=== PATIENT | female | born 1960 | race Caucasian/White ===

== ENCOUNTER 2016-12-03 20:03 | Emergency (ER) | payer OTHER ==
[~2016-12-03] VITALS: Ht 152.4 cm; Wt 47.6 kg
[~2016-12-03 20:03] MED LIST: HYDR-2672 PO; LEVO112T4 PO; LOPE2TAB27 PO; LOPE2TAB56 PO; LORA-434 PO; LORA1TAB PO; LORA2TAB89 PO; METR500T PO; ONDA4TAB7 PO; QUET25TA PO
[2016-12-03 20:17] VITALS: BP 118/76
[2016-12-03] MEDS ORDERED: LORAZEPAM 1 MG TABLET. PO ONE (20:45)
--- NOTE | 2016-12-03 20:51 | PHYS DOC ---
Past Medical History Past Medical History: Bipolar, Bronchitis, Hypertension, Hypothyroid Additional Past Medical Histor: [place], scoliosis, skin cancer, heart disease Past Surgical History: No Surgical History Additional Past Surgical Histo: TOE REMOVAL D/T CANCER Additional Information: 1 PACK/DAY Alcohol Use: None Drug Use: None Adult General Chief Complaint Chief Complaint: MECHANICAL FALL HPI HPI Patient is a 56 year old female presents emergency room with a complaint of back pain and right hand pain secondary to a fall at home prior to arrival in the emergency department. Patient states that she was coming in with her boyfriend who is being seen. She states that probably and she slipped and fell and landed onto her bottom. She denies loss of consciousness. Patient also has an additional complaint of being out of Ativan for approximately one week. She has a well-established history of being bipolar has a history of multiple anxiety attacks. She currently does not have a primary care doctor as her boyfriend "fired" him from continuing to prescribe Ativan. She also presents with multiple other complaints that are chronic in nature. She does not have a primary care doctor at this time. This is the patient's visit to this emergency department since October 25, 2016. Review of Systems Review of Systems Constitutional: Denies fever or chills [] Eyes: Denies change in visual acuity, redness, or eye pain [] HENT: Denies nasal congestion or sore throat [] Respiratory: Denies cough or shortness of breath [] Cardiovascular: No additional information not addressed in HPI [] GI: Denies abdominal pain, nausea, vomiting, bloody stools or diarrhea [] : Denies dysuria or hematuria [] Musculoskeletal: Reports back and right hand pain. Integument: Denies rash or skin lesions [] Neurologic: Denies headache, focal weakness or sensory changes [] Endocrine: Denies polyuria or polydipsia [] Current Medications Current Medications Current Medications Medications (Trade) Dose Ordered Sig/Gerardo Start Time Stop Time Status Last Admin Dose Admin Lorazepam (Ativan) 1 mg 1X ONCE 12/03/16 20:45 12/03/16 20:46 DC 12/03/16 20:37 1 MG Allergies Allergies Allergies Coded Allergies Type Severity Reaction Last Updated Verified aspirin Allergy Intermediate 10/10/16 Yes Physical Exam Physical Exam Constitutional: Well developed, well nourished, mild distress, non-toxic appearance. Patient displays some pressured speech and appears anxious. She is signing the paperwork by our registration/acute access person without any evidence of difficulty handling the pen. Patient is requesting over and over again to receive a shot of anxiety medicine. HENT: Normocephalic, atraumatic, bilateral external ears normal, oropharynx moist, no oral exudates, nose normal. Eyes: PERRLA, EOMI, conjunctiva normal, no discharge. [] Neck: Normal range of motion, no tenderness, supple, no stridor. Cardiovascular:Heart rate regular rhythm, no murmur [] Lungs & Thorax: Bilateral breath sounds clear to auscultation [] Abdomen: Bowel sounds normal, soft, no tenderness, no masses, no pulsatile masses. [] Skin: Warm, dry, no erythema, no rash. [] Back: Patient does have profound scoliosis and or thoracolumbar spine. Patient essentially has tenderness along her entire axial skeleton without focal areas of pain. There is no palpable defect or step-off along the spinous processes. There is no active muscle spasm. Right hand and wrist is without any evidence of injury/deformity/abnormality. She has tenderness to entire hand without palpable defect, deformity, instability or crepitus. She is able to flex and extend all 5 fingers at each joint. Hand is neurovascularly intact with capillary refill less than 2 seconds. Extremities: No tenderness, no cyanosis, no clubbing, ROM intact, no edema. [] Neurologic: Alert and oriented X 3, normal motor function, normal sensory function, no focal deficits noted. [] Psychologic: Patient was slightly pressured speech with a focus on her anxiety inside of the pain in her back and in her right hand. Current Patient Data Vital Signs Vital Signs Date Time Temp Pulse Resp B/P Pulse Ox O2 Delivery O2 Flow Rate FiO2 12/03/16 20:17 98.3 81 20 97 Room Air 98.3 EKG EKG [] Radiology/Procedures Radiology/Procedures 3 views of patient's lumbar spine show profound thoracolumbar scoliosis without any evidence of acute injury. 3 views of patient's right hand and right wrist were performed with adequate technique. There is no evidence of fracture or dislocation. Course & Med Decision Making Course & Med Decision Making 1 mg Ativan tablet was ordered by mouth. Patient verbalized her dissatisfaction with receiving a by mouth anxiety medicines shot. She was overheard with the nurse telling her that she could only take half of the pill at a time and that she did only take it with warm water and not cold water. Patient has had a somewhat longer, protracted stay and is normal based on her complaints. She was taken over for x-rays of her back and her right hand/wrist. She stated that she needed use the bathroom is brought back to the emergency room for assistance and using the restroom and then was cleaned up with assistance from the nursing staff. Along patient's stay here, she has been verbalizing her desire to be admitted to the hospital due to all her chronic concerns. Dragon Disclaimer Dragon Disclaimer This electronic medical record was generated, in whole or in part, using a voice recognition dictation system. Departure Departure Impression: Primary Impression: Lumbosacral strain Additional Impressions: Multiple contusions Anxiety Disposition: HOME, SELF-CARE Condition: STABLE Referrals: NO PCP (PCP) Patient Instructions: Anxiety and Panic Attacks, [id number], Hand Contusion, [id number], Lumbosacral Strain Additional Instructions: 1. The x-rays of your back, wrist and hand show no broken bones or dislocations. 2. Take the medication as prescribed. 3. Review the discharge instructions provided for self care and reasons to return the emergency department. 4. Use the pamphlet provided for assistance in finding a primary care doctor to address your medical concerns. Call Sunday to schedule follow-up appointment. Scripts Lorazepam (Ativan)0.5 Mg Tablet0.5 Mg PO BID #10 TAB Prov:TRIXIE JANE 12/03/16 Hydrocodone/[place] 5-325 ([place] 5-325 Tablet)1 Each Tablet1 Tab PO PRN Q6HRS PRN PAIN #10 TAB Prov:TRIXIE JANE 12/03/16 Problem Qualifiers TRIXIE JANE Dec 03, 2016 20:51
[2016-12-03] MEDS ORDERED: HYDR-971 PO (21:52)
[2016-12-03] MEDS ORDERED: LORA0.5T96 PO (21:52)
--- NOTE | 2016-12-04 08:16 | RAD ---
Right wrist, 3 views, 12/03/2016: History: Fall, pain No fracture or dislocation is identified. The soft tissues are unremarkable. IMPRESSION: No acute right wrist abnormality is detected. Right hand, 3 views, 12/03/2016: There is mild patchy bony demineralization. No acute fracture or dislocation is identified. There are minimal scattered degenerative changes. IMPRESSION: No acute bony abnormality is detected.
--- NOTE | 2016-12-04 08:19 | RAD ---
Lumbar spine, 12/03/2016: History: Fall, pain The bony structures are demineralized. There is a severe left convexity thoracolumbar scoliosis. Some of the lumbar vertebrae are therefore not clearly delineated in the lateral projection due to obliquity of positioning. No definite fracture is seen. There is disc space narrowing and marginal spurring at multiple levels. Arterial calcifications are present. There is a moderate-sized hiatal hernia. IMPRESSION: 1. Severe thoracolumbar scoliosis which compromises the exam. 2. Moderate degenerative change. 3. No acute bony abnormality is detected.
[2016-12-14] MEDS ORDERED: MORP30TA PO (01:27)
[2016-12-18] MEDS ORDERED: Vancomycin Hcl PO (11:05)
== END 2016-12-03 21:55 | disposition home or self-care (01) ==
LOC: ER 20:03
DX: S39.012A Strain of muscle, fascia and tendon of lower back, initial encounter (principal); F41.9 Anxiety disorder, unspecified; S60.221A Contusion of right hand, initial encounter; I10 Essential (primary) hypertension; E03.9 Hypothyroidism, unspecified; F17.210 Nicotine dependence, cigarettes, uncomplicated; Z88.6 Allergy status to analgesic agent; W19.XXXA Unspecified fall, initial encounter; Y93.89 Activity, other specified; Y92.098 Other place in other non-institutional residence as the place of occurrence of the external cause; Y99.8 Other external cause status
CPT/HCPCS: 72100; 73110; 73130; 99284

== ENCOUNTER 2016-12-08 14:54 | Emergency (ER) | payer OTHER ==
[~2016-12-08] VITALS: Ht 152.4 cm; Wt 47.6 kg
[~2016-12-08 14:54] MED LIST changes: +HYDR-971 PO; +LORA0.5T96 PO
[2016-12-08 15:16] VITALS: BP 147/72
[2016-12-08] MEDS ORDERED: MORPHINE SULFATE 10 MG/ML VIAL. IM ONE (15:30)
--- NOTE | 2016-12-08 15:35 | PHYS DOC ---
Past Medical History Past Medical History: Bipolar, Bronchitis, Hypertension, Hypothyroid Additional Past Medical Histor: [place], scoliosis, skin cancer, heart disease Past Surgical History: No Surgical History Additional Past Surgical Histo: TOE REMOVAL D/T CANCER Alcohol Use: None Drug Use: None Adult General Chief Complaint Chief Complaint: BACK PAIN - NO INJURY HPI HPI Patient is a 56 year old female who presents emergency room with complaint of back pain and being out of morphine that she takes daily for her back pain. Patient is actually been seen at this facility 3 times since the ninth of this month. She does have an established history of chronic back pain secondary to scoliosis. Patient is a marginally functional individual who is reliant on opiates and benzodiazepines daily. Patient did receive a prescription for 60 morphine ER tablets, 15 mg on November 17 this is for total of 60 which indicates a 30 day supply. Patient also received a prescription for Ativan on November 07 onto quantity was 40. She also received a prescription for Ativan on November 17 for a quantity of 30. Patient then received a prescription for 10 Ativan tablets on December 03 and 10 [place] 5/325 tablets on December 03 as well. Review of Systems Review of Systems Constitutional: Denies fever or chills [] Eyes: Denies change in visual acuity, redness, or eye pain [] HENT: Denies nasal congestion or sore throat [] Respiratory: Denies cough or shortness of breath [] Cardiovascular: No additional information not addressed in HPI [] GI: Denies abdominal pain, nausea, vomiting, bloody stools or diarrhea [] : Denies dysuria or hematuria [] Musculoskeletal: Denies back pain or joint pain [] Integument: Denies rash or skin lesions [] Neurologic: Denies headache, focal weakness or sensory changes [] Endocrine: Denies polyuria or polydipsia [] Current Medications Current Medications Current Medications Medications (Trade) Dose Ordered Sig/Gerardo Start Time Stop Time Status Last Admin Dose Admin Morphine Sulfate 10 mg 1X ONCE 12/08/16 15:30 12/08/16 15:31 DC 12/08/16 15:47 10 MG Allergies Allergies Allergies Coded Allergies Type Severity Reaction Last Updated Verified aspirin Allergy Intermediate 10/10/16 Yes Physical Exam Physical Exam Constitutional: Patient sitting in a wheelchair. She is in her usual state of duress. She is complaining loudly that her back hurts and that she is anxious. This is no different than her presentation when I saw her 5 days ago. HENT: Normocephalic, atraumatic, bilateral external ears normal, oropharynx moist, no oral exudates, nose normal. [] Eyes: PERRLA, EOMI, conjunctiva normal, no discharge. [] Neck: Normal range of motion, no tenderness, supple, no stridor. [] Cardiovascular:Heart rate regular rhythm, no murmur [] Lungs & Thorax: Bilateral breath sounds clear to auscultation [] Abdomen: Bowel sounds normal, soft, no tenderness, no masses, no pulsatile masses. [] Skin: Warm, dry, no erythema, no rash. [] Back: Patient has significant deformity related to scoliosis. There is pant tenderness to her back borderlining on allodynia. There is no focal area of tenderness. There are no overlying skin lesions concerning for goals. There is no CVA tenderness.. Extremities: No tenderness, no cyanosis, no clubbing, ROM intact, no edema. [] Neurologic: Alert and oriented X 3, normal motor function, normal sensory function, no focal deficits noted. [] Psychologic: Affect normal, judgement normal, mood normal. [] Current Patient Data Vital Signs Vital Signs Date Time Temp Pulse Resp B/P Pulse Ox O2 Delivery O2 Flow Rate FiO2 12/08/16 15:47 16 95 Room Air 12/08/16 15:16 98.7 79 98.7 EKG EKG [] Radiology/Procedures Radiology/Procedures [] Course & Med Decision Making Course & Med Decision Making Patient arrives to the emergency department by [facility] due to back pain secondary to scoliosis. She has had numerous narcotic prescriptions including morphine and hydrocodone. She is also requesting Ativan. Patient has had a total of 80 Ativan tablets since November 07. This was confirmed with [facility] Patient had a prescription for morphine sulfate tablets, 15 mg to be taken twice a day filled on November 17, 2016. This is a 30 day supply. She has had 10 tablets filled on December 03. Dragon Disclaimer Dragon Disclaimer This electronic medical record was generated, in whole or in part, using a voice recognition dictation system. Departure Departure Impression: Primary Impression: Anxiety Additional Impressions: Chronic back pain Drug-seeking behavior Disposition: 01 HOME, SELF-CARE Condition: STABLE Referrals: NO PCP (PCP) Patient Instructions: Anxiety and Panic Attacks, [id number], Chronic Back Pain, Substance Abuse-Brief Additional Instructions: 1. You have a controlled substance problem. You have received prescriptions for 80 Ativan tablets, 60 morphine tablets and 10 hydrocodone tablets within the past 21 days. 2. You need to see a specialist. This was discussed with you and information was provided to you on your visit to this emergency department 5 days ago. 3. You need to call [facility] for information to see a certified medicine aide, primary care doctor and pain management physician. The number is [phone]. Problem Qualifiers Additional Impressions: Chronic back pain Back pain location: back pain in unspecified location Back pain laterality: unspecified Qualified Code: M54.9 - Dorsalgia, unspecified TRIXIE JANE Dec 08, 2016 15:35
== END 2016-12-08 15:43 | disposition home or self-care (01) ==
LOC: ER 14:54
DX: G89.29 Other chronic pain (principal); M54.89 Other dorsalgia; I10 Essential (primary) hypertension; E03.9 Hypothyroidism, unspecified; Z72.89 Other problems related to lifestyle; F31.9 Bipolar disorder, unspecified; Z88.8 Allergy status to other drugs, medicaments and biological substances
CPT/HCPCS: 96372; 99283; J2270

== ENCOUNTER 2016-12-28 17:55 | Emergency (ER) | payer OTHER ==
[~2016-12-28 17:55] MED LIST changes: +MORP30TA PO; +Vancomycin Hcl PO
[2016-12-28] MEDS ORDERED: HYDROMORPHONE 2 MG/ML VIAL. IV PRN (21:15)
[2016-12-28] MEDS ORDERED: ONDANSETRON PF 4 MG/2 ML VIAL. IV PRN (21:15)
[2016-12-28] MEDS ORDERED: IV NORMAL SALINE 500ML BAG 500 ML IV ONE (21:15)
[2016-12-28 21:30] VITALS: BP 125/72
[2016-12-28] MEDS ORDERED: HYDR25TA PO (21:31)
[2016-12-28] MEDS ORDERED: ONDA4TAB10 SL (21:31)
--- NOTE | 2016-12-28 21:31 | PHYS DOC ---
Past Medical History Past Medical History: Bipolar, Bronchitis, Hypertension, Hypothyroid Additional Past Medical Histor: [place], scoliosis, skin cancer, heart disease Past Surgical History: No Surgical History Additional Past Surgical Histo: TOE REMOVAL D/T CANCER Alcohol Use: None Drug Use: None Adult General Chief Complaint Chief Complaint: DIARRHEA HPI HPI 56-year-old female presenting to the emergency department today complaining of diarrhea. She complains of watery diarrhea is been intermittent for at least a month. She is currently undergoing therapy with Flagyl through a primary care physician. She appears mildly anxious during her examination. She denies blood in her stool. She clearly is stating that she does not want any blood work or imaging testing at this time because we have had it last time she was in the hospital here. Her last CT showed evidence of colitis. Onset 1 month. Intermittent. No alleviating factors. No exacerbating factors. She denies fevers or chills. Review of systems is negative for chest pain shortness of breath fevers chills or vomiting. All other review of systems is negative unless otherwise noted in history of present illness. Review of Systems Review of Systems SEE ABOVE. Current Medications Current Medications Current Medications Medications (Trade) Dose Ordered Sig/Gerardo Start Time Stop Time Status Last Admin Dose Admin Hydromorphone HCl (Dilaudid) 0.5 mg PRN Q1HR PRN 12/28/16 21:15 Ondansetron HCl 4 mg 4 mg PRN Q30MIN PRN 12/28/16 21:15 Sodium Chloride (Iv Sodium Chloride 0.9% 500ml Bag) 500 ml @ 500 mls/hr 1X ONCE 12/28/16 21:15 12/28/16 22:14 Allergies Allergies Allergies Coded Allergies Type Severity Reaction Last Updated Verified aspirin Allergy Intermediate 10/10/16 Yes Physical Exam Physical Exam Constitutional: Well developed, well nourished, no acute distress, non-toxic appearance. HENT: Normocephalic, atraumatic, bilateral external ears normal, oropharynx moist, no oral exudates, nose normal. [] Eyes: PERRLA, EOMI, conjunctiva normal, no discharge. Neck: Normal range of motion, no tenderness, supple, no stridor. [] Cardiovascular:Heart rate regular rhythm, no murmur Lungs & Thorax: Bilateral breath sounds clear to auscultation [] Abdomen: Soft nontender abdomen without rebound tenderness or guarding present. Negative McBurneys point. Negative Mcdaniels sign. No ecchymosis present. Skin: Warm, dry, no erythema, no rash. Back: No tenderness, no CVA tenderness. [] Extremities: No tenderness, no cyanosis, no clubbing, ROM intact, no edema. Neurologic: Alert and oriented X 3, normal motor function, normal sensory function, no focal deficits noted. Psychologic: Affect normal, judgement normal, mood normal. [] Current Patient Data Vital Signs Vital Signs Date Time Temp Pulse Resp B/P Pulse Ox O2 Delivery O2 Flow Rate FiO2 12/28/16 21:30 84 18 125/72 98 Room Air 12/28/16 21:00 98.7 98.7 Lab Values Laboratory Tests Test 12/28/16 21:24 Urine Collection Type Unknown Urine Color Yellow Urine Clarity Clear Urine pH 6.5 Urine Specific [place] 1.010 Urine Protein Negativemg/dL (NEG-TRACE) Urine Glucose (UA) Negativemg/dL (NEG) Urine Ketones (Stick) Negativemg/dL (NEG) Urine Blood Negative (NEG) Urine Nitrite Negative (NEG) Urine Bilirubin Negative (NEG) Urine Urobilinogen Dipstick 0.2mg/dL (0.2 mg/dL) Urine Leukocyte Esterase Negative (NEG) Urine RBC 0/HPF (0-2) Urine WBC 0/HPF (0-4) Urine Squamous Epithelial Cells Mod/LPF Urine Bacteria 0/HPF (0-FEW) Urine Mucus Slight/LPF EKG EKG [] Radiology/Procedures Radiology/Procedures [] Course & Med Decision Making Course & Med Decision Making Pertinent Labs and Imaging studies reviewed. (See chart for details) [] 56-year-old female presenting to the emergency department today with mild intermittent abdominal pain with watery diarrhea. She had recently been diagnosed with colitis and currently is on Flagyl therapy. On examination of the patient's vital signs showed she was afebrile with a normal heart rate. Saturating well with normal blood pressure. Physical exam showed a nontender nonsurgical abdomen. I expressed my desire to obtain blood work and probable imaging of the abdomen however the patient respectfully declined. She was concerned because she already had blood work approximately one week ago. I explained that this can foreign exchange services manager time and help further clarify her medical condition and situation. She clearly demonstrated insight into her situation and was able to make medical decisions. She demonstrated medical capacity. Her vital signs were unremarkable. Abdomen was soft and nontender. I offered her nausea medication and something for anxiety which she had request for me and she was subsequently discharged home and referred to our primary care physicians over the next day or 2 for close follow-up. Dragon Disclaimer Dragon Disclaimer This electronic medical record was generated, in whole or in part, using a voice recognition dictation system. Departure Departure Impression: Primary Impression: Diarrhea Disposition: HOME, SELF-CARE Referrals: NO PCP (PCP) DICK PRASAD MD Patient Instructions: Diarrhea, [id number] Additional Instructions: Thank you for allowing us to participate in your care today. Followup with your primary care physician in 3 days if your symptoms do not improve. If you do not have a primary care provider you can ask for a list of our primary care providers. Return to the emergency department you have any new or concerning findings. This should be evaluated by the primary care physician and any necessary consulting services for continued management within a few days after discharge. Return to emergency room if you have any new or concerning symptoms including but not limited to fever, chills, nausea, vomiting, intractable pain, any new rashes, chest pain, shortness of air, uncontrolled bleeding, difficulty breathing, and/or vision loss. You may have been prescribed medication that can change in your level of thinking and ability to operate machinery. These medications include hydrocodone and Ativan. Also, Benadryl has been known to do this as well. Be sure to check with your pharmacist and ask if the medications you've prescribed can affect your level of consciousness. I recommend not operating heavy machinery or driving while on medication such as these. Scripts Ondansetron (Zofran Odt)4 Mg Tab.rapdis1 Tab SL PRN Q8HRS PRN NAUSEA #3 TAB Prov:JOCELYN SCOTT MD 12/28/16 Hydroxyzine Hcl 25 Mg Tablet1 Tab PO PRN BID PRN ANXIETY / AGITATION #4 TAB Prov:JOCELYN SCOTT MD 12/28/16 JOCELYN SCOTT MD Dec 28, 2016 21:32
[2016-12-28 21:41] LABS: BILIRUBIN,URINE NEGATIVE (NEG); GLUCOSE,URINE NEGATIVE (NEG); NITRITE,URINE NEGATIVE (NEG); PH,URINE 6.5; PROTEIN,URINE NEGATIVE (NEG-TRACE); UROBILINOGEN,URINE 0.2 mg/dL (0.2 mg/dL)
[2016-12-28 21:52] LABS: BACTERIA,URINE 0 /HPF (0-FEW); RBC,URINE 0 /HPF (0-2); SQUAMOUS EPITHELIAL CELL,UR MOD /LPF; WBC,URINE 0 /HPF (0-4)
== END 2016-12-28 21:40 | disposition home or self-care (01) ==
LOC: ER 17:55
DX: R19.7 Diarrhea, unspecified (principal); E03.9 Hypothyroidism, unspecified; I11.9 Hypertensive heart disease without heart failure; F31.9 Bipolar disorder, unspecified; M41.9 Scoliosis, unspecified; Z88.8 Allergy status to other drugs, medicaments and biological substances
CPT/HCPCS: 81001; 99283

== ENCOUNTER 2016-12-30 17:44 | Emergency (ER) | payer OTHER ==
[~2016-12-30] VITALS: Ht 162.6 cm; Wt 45.4 kg
[~2016-12-30 17:44] MED LIST changes: +HYDR25TA PO; +ONDA4TAB10 SL
[2016-12-30] MEDS ORDERED: ONDANSETRON PF 4 MG/2 ML VIAL. IV ONE (18:45)
[2016-12-30] MEDS ORDERED: LORAZEPAM 2 MG/ML VIAL IV ONE (18:45)
--- NOTE | 2016-12-30 19:22 | PHYS DOC ---
Past Medical History Past Medical History: Bipolar, Bronchitis, Hypertension, Hypothyroid Additional Past Medical Histor: [place], scoliosis, skin cancer, heart disease Past Surgical History: No Surgical History Additional Past Surgical Histo: TOE REMOVAL D/T CANCER Alcohol Use: None Drug Use: None Adult General Chief Complaint Chief Complaint: DIARRHEA HPI HPI 56-year-old female who is well known to our department presents once again stating she's having diarrhea and concerned about a infection in her colon. She has not had any fever chills or sweats. She's had abdominal cramping. I saw her not long ago for the same complaint laboratory studies at that time were completely normal. [] Review of Systems Review of Systems Constitutional: Denies fever or chills [] Eyes: Denies change in visual acuity, redness, or eye pain [] HENT: Denies nasal congestion or sore throat [] Respiratory: Denies cough or shortness of breath [] Cardiovascular: No additional information not addressed in HPI [] GI: Per history of present illness [] : Denies dysuria or hematuria [] Musculoskeletal: Denies back pain or joint pain [] Integument: Denies rash or skin lesions [] Neurologic: Denies headache, focal weakness or sensory changes [] Endocrine: Denies polyuria or polydipsia [] Current Medications Current Medications Current Medications Medications (Trade) Dose Ordered Sig/Gerardo Start Time Stop Time Status Last Admin Dose Admin Lorazepam (Ativan) 1 mg 1X ONCE 12/30/16 18:45 12/30/16 18:46 DC Ondansetron HCl (Zofran) 4 mg 1X ONCE 12/30/16 18:45 12/30/16 18:46 DC Allergies Allergies Allergies Coded Allergies Type Severity Reaction Last Updated Verified aspirin Allergy Intermediate 10/10/16 Yes Physical Exam Physical Exam Constitutional: Well developed, well nourished, no acute distress, non-toxic appearance. [] HENT: Normocephalic, atraumatic, bilateral external ears normal, oropharynx moist, no oral exudates, nose normal. [] Eyes: PERRLA, EOMI, conjunctiva normal, no discharge. [] Neck: Normal range of motion, no tenderness, supple, no stridor. [] Cardiovascular:Heart rate regular rhythm, no murmur [] Lungs & Thorax: Bilateral breath sounds clear to auscultation [] Abdomen: Bowel sounds normal, soft, no tenderness, no masses, no pulsatile masses. [] Skin: Warm, dry, no erythema, no rash. [] Back: No tenderness, no CVA tenderness. [] Extremities: No tenderness, no cyanosis, no clubbing, ROM intact, no edema. [] Neurologic: Alert and oriented X 3, normal motor function, normal sensory function, no focal deficits noted. [] Psychologic: Anxious [] EKG EKG [] Radiology/Procedures Radiology/Procedures [] Course & Med Decision Making Course & Med Decision Making Pertinent Labs and Imaging studies reviewed. (See chart for details) [ED course: Evaluation reveals a 56-year-old female who has frequent visits to our emergency department. I discussed with the patient that she needs to follow with her family doctor. I let her know that I did not believe anything today was an emergency. I didn't feel like she needed any lab tests to tell me this and I will discharge her home in stable condition.] Dragon Disclaimer Dragon Disclaimer This electronic medical record was generated, in whole or in part, using a voice recognition dictation system. Departure Departure Impression: Primary Impression: Anxiety Disposition: HOME, SELF-CARE Condition: STABLE Referrals: NO PCP (PCP) Patient Instructions: Anxiety and Panic Attacks Additional Instructions: He needs follow with the family doctor next week for recheck. SOL PEDRO DO Dec 30, 2016 19:22
[2016-12-30 19:38] VITALS: BP 174/86
== END 2016-12-30 20:00 | disposition home or self-care (01) ==
LOC: ER 17:44
DX: F41.9 Anxiety disorder, unspecified (principal); R19.7 Diarrhea, unspecified; F31.9 Bipolar disorder, unspecified; E03.9 Hypothyroidism, unspecified; I11.9 Hypertensive heart disease without heart failure; Z88.6 Allergy status to analgesic agent
CPT/HCPCS: 99281

== ENCOUNTER 2017-01-07 11:53 | Emergency (ER) | payer OTHER ==
[~2017-01-07] VITALS: Ht 162.6 cm; Wt 40.8 kg
[2017-01-07 12:37] VITALS: BP 132/68
--- NOTE | 2017-01-07 13:03 | RAD ---
Indication cough and congestion. PA and lateral views of the chest were obtained and are compared to a study December 13, 2016. Note is made of a two-view examination 11/15/2016 The heart and pulmonary vessels are within normal limits. There is no focal infiltrate. Hiatus hernia is noted. Marked scoliosis is additionally noted. IMPRESSION: Chronic changes. No acute finding seen
[2017-01-07 13:36] LABS: OBC FLU VALID
[2017-01-07] MEDS ORDERED: LORAZEPAM 1 MG TABLET. PO ONE (14:30)
[2017-01-07] MEDS ORDERED: LEVO500T38 PO (15:39)
--- NOTE | 2017-01-07 15:40 | PHYS DOC ---
Past Medical History Past Medical History: Asthma, Bronchitis Additional Past Medical Histor: habematolel, scoliosis, skin cancer, heart disease Past Surgical History: No Surgical History Additional Past Surgical Histo: TOE REMOVAL D/T CANCER Alcohol Use: None Drug Use: None Adult General Chief Complaint Chief Complaint: COUGH HPI HPI Patient is a 56 year old female presents emergency department stating that she' s had a cough and congestion for the last week. Patient also states that she has had a fever on and off. She does have a history of smoking. She denies nausea or vomiting. She states that she is also having bilateral knee pain in which she said the dashboard with her knees. She is able to walk without difficulty. She denies any numbness or tingling down to her lower extremities. Review of Systems Review of Systems Constitutional: Denies fever or chills [] Eyes: Denies change in visual acuity, redness, or eye pain [] HENT: Denies nasal congestion or sore throat [] Respiratory: cough denies shortness of breath [] Cardiovascular: No additional information not addressed in HPI [] Musculoskeletal: Denies back pain. Bilateral knee pain and discomfort Integument: Denies rash or skin lesions [] Neurologic: Denies headache, focal weakness or sensory changes [] Current Medications Current Medications Current Medications Medications (Trade) Dose Ordered Sig/Gerardo Start Time Stop Time Status Last Admin Dose Admin Lorazepam (Ativan) 1 mg 1X ONCE 01/07/17 14:30 01/07/17 14:31 DC 01/07/17 14:28 1 MG Allergies Allergies Allergies Coded Allergies Type Severity Reaction Last Updated Verified aspirin Allergy Intermediate 10/10/16 Yes Physical Exam Physical Exam Constitutional: Well developed, well nourished, no acute distress, non-toxic appearance. [] HENT: Normocephalic, atraumatic, bilateral external ears normal, oropharynx moist, no oral exudates, nose normal. [] Eyes: PERRLA, EOMI, conjunctiva normal, no discharge. [] Neck: Normal range of motion, no tenderness, supple, no stridor. [] Cardiovascular:Heart rate regular rhythm, no murmur [] Lungs & Thorax: Bilateral breath sounds clear to auscultation [] Skin: Warm, dry, no erythema, no rash. [] Back: No tenderness Extremities: Bilateral knee tenderness, no cyanosis, no clubbing, ROM intact, no edema. Peripheral pulses 2 + cap refill brisk < 2 seconds. Good sensation noted. Good steady gait noted Neurologic: Alert and oriented X 3, normal motor function, normal sensory function, no focal deficits noted. [] Psychologic: Affect normal, judgement normal, mood normal. [] Current Patient Data Vital Signs Vital Signs Date Time Temp Pulse Resp B/P Pulse Ox O2 Delivery O2 Flow Rate FiO2 01/07/17 12:37 97.8 89 20 96 Room Air 97.8 Lab Values Laboratory Tests Test 01/07/17 12:45 Influenza Type A Antigen Negative (NEGATIVE) Influenza Type B Antigen Negative (NEGATIVE) EKG EKG [] Radiology/Procedures Radiology/Procedures [] Course & Med Decision Making Course & Med Decision Making Pertinent Labs and Imaging studies reviewed. (See chart for details) She was were negative for any abnormalities. Patient will be discharged home with Levaquin she has been sick for the last 2 weeks that has a history of smoking. Also recommended Tylenol or ibuprofen for pain and discomfort. Follow- up primary care physician next week. Since symptoms to return back to emergency department was provided. Patient agrees with discharge instructions treatment regimens and follow-up recommendations. [] Dragon Disclaimer Dragon Disclaimer This electronic medical record was generated, in whole or in part, using a voice recognition dictation system. Departure Departure Impression: Primary Impression: Knee pain, acute Additional Impression: Upper respiratory infection Disposition: 01 HOME, SELF-CARE Condition: STABLE Referrals: NO PCP (PCP) Patient Instructions: Knee Pain, [id number], Upper Respiratory Infection, Adult, [id number] Additional Instructions: Home to rest Medications as prescribed. Drink plenty of fluids. Tylenol or ibuprofen for pain and discomfort. Follow-up through primary care physician in the next 5-7 days. Return back to emergency department as needed for signs and symptoms of become worse. Scripts Levofloxacin (Levaquin)500 Mg Tablet1 Tab PO DAILY #7 TAB Prov:DAMIR PATEL NP 01/07/17 Problem Qualifiers DAMIR PATEL NP Jan 07, 2017 15:40
--- NOTE | 2017-01-07 15:44 | RAD ---
Indication bilateral knee pain for approximately a week. AP oblique and lateral views of both knees were obtained as well as individual sunrise views of both knees. Views of the left knee show no acute finding. There is a well-corticated bony fragment just above the medial femoral condyle having a chronic appearance. Significant degenerative changes involving the knee are not apparent on plain films and there is no significant joint effusion. Views of the right knee also appear unremarkable. No acute finding is seen and there are no significant degenerative changes apparent on plain films. IMPRESSION: No acute or significant finding involving either knee.
== END 2017-01-07 15:46 | disposition home or self-care (01) ==
LOC: ER 11:53
DX: J06.9 Acute upper respiratory infection, unspecified (principal); M25.561 Pain in right knee; M25.562 Pain in left knee; J45.909 Unspecified asthma, uncomplicated; F17.200 Nicotine dependence, unspecified, uncomplicated; Z88.6 Allergy status to analgesic agent
CPT/HCPCS: 71020; 73564; 87804; 99285-25

== ENCOUNTER 2017-01-27 15:40 | Emergency (ER) | payer OTHER ==
[~2017-01-27] VITALS: Ht 149.9 cm; Wt 40.8 kg
[~2017-01-27 15:40] MED LIST changes: +LEVO500T38 PO
[2017-01-27 15:58] VITALS: BP 130/66
--- NOTE | 2017-01-27 17:28 | PHYS DOC ---
Past Medical History Past Medical History: Asthma, Bronchitis Additional Past Medical Histor: [place], scoliosis, skin cancer, heart disease Past Surgical History: No Surgical History Additional Past Surgical Histo: TOE REMOVAL D/T CANCER Alcohol Use: None Drug Use: None Adult General Chief Complaint Chief Complaint: multiple HPI HPI Patient is a 56 year old female well known to the emergency department brought to the ED by her boyfriend. Patient states "I have Chlamydia", the patient and her boyfriend both tell me that she has "diagnosed with chlamydia" here at the ED and they went to [facility] for a second opinion with a also told her she had chlamydia. However, discussing with the patient and her boyfriend, her complaint was diarrhea and the test that was done was on her stool and as I reviewed her record she has never had a Chlamydia test done here but in fact has been positive for C. difficile on 3 occasions. I'm not sure what made her concerned about that today. She states that she did have 3 rounds of antibiotics. She tells me that she has had chronic diarrhea for a long time. She often has accidents and soils her clothes. Her diarrhea is better today than it has been in the past but she does have some abdominal pain. She also complains of chronic back pain and and anxiety attack. PCP [facility] Review of Systems Review of Systems Constitutional: Denies fever or chills [] Eyes: Denies change in visual acuity, redness, or eye pain [] HENT: Denies nasal congestion or sore throat [] Respiratory: Denies cough or shortness of breath [] Cardiovascular: Denies chest pain GI: As in history of present illness : Denies dysuria or hematuria [] Musculoskeletal: Chronic back pain, chronic scoliosis Integument: Denies rash or skin lesions [] Neurologic: Denies headache, focal weakness or sensory changes [] Allergies Allergies Allergies Coded Allergies Type Severity Reaction Last Updated Verified aspirin Allergy Intermediate 10/10/16 Yes Physical Exam Physical Exam Constitutional: Frail, cachectic, with severe scoliosis, no acute change from her baseline well known to me HENT: Normocephalic, atraumatic, bilateral external ears normal, nose normal. [] Eyes: conjunctiva normal, no discharge. [] Neck: Normal range of motion, no stridor. [] Cardiovascular:Heart rate regular rhythm, no murmur [] Lungs & Thorax: Bilateral breath sounds clear to auscultation [] Abdomen: Bowel sounds normal, soft, no tenderness, no masses, no pulsatile masses. [] Skin: Warm, dry, no erythema, no rash. [] Back: Severe scoliosis and kyphosis, chronic Extremities: No tenderness, no cyanosis, no clubbing, ROM intact, no edema. [] Neurologic: Alert and oriented X 3, normal motor function, normal sensory function, no focal deficits noted. [] Current Patient Data Vital Signs Vital Signs Date Time Temp Pulse Resp B/P Pulse Ox O2 Delivery O2 Flow Rate FiO2 01/27/17 15:58 98.6 88 20 130/66 96 Room Air 98.6 EKG EKG [] Radiology/Procedures Radiology/Procedures [] Course & Med Decision Making Course & Med Decision Making Pertinent Labs and Imaging studies reviewed. (See chart for details) 56-year-old presents from home with chronic complaints. When I entered the room she was watching TV talking with her boyfriend. Both of them were very argumentative stating that she has been diagnosed with "chlamydia" and they've looked into that and now they note that it is a sexually transmitted disease. After extensive chart review an extensive conversation with the patient and her boyfriend, I discussed with them that it appears to me that her diagnosis was Clostridium difficile and I explained the difference and talked about this quite a bit. It appears that she's been treated for this. She had a positive C. difficile here at [facility] in September, October, and again in November. Each time she was treated with antibiotics. She hasn't gotten any worse and, little bit skeptical that she actually had an acute C. difficile infection 3 months in a row. I don't know whether she might have some other condition that causes her to have a positive PCR toxin test. I talked to the patient about the fact that she needs to follow up with her outpatient primary care physician for follow-up of her chronic conditions. Patient, as is her usual presentation, was very argumentative and demanding that she needed something for pain and something for anxiety. I did explain to her that both of these chronic conditions will not be addressed in the emergency department and she needs to follow-up for these chronic conditions with her primary care physician. The patient continued to request clean clothes and something to eat, and was discharged to home with her boyfriend. [] Dragon Disclaimer Dragon Disclaimer This electronic medical record was generated, in whole or in part, using a voice recognition dictation system. Departure Departure Impression: Primary Impression: Chronic back pain Additional Impression: Chronic diarrhea Disposition: HOME, SELF-CARE Condition: STABLE Referrals: NO PCP (PCP) Additional Instructions: As we discussed, the test result positive here at [facility] is for CLOSTRIDIUM DIFFICILE, which is an infection of the colon that may cause diarrhea. However, you have been on antibiotics and are not better, so I am not sure what is the best way to proceed and if you need any more antibiotics or any more tests. This is something that can be discussed with your doctor as an outpatient. I suggest that you follow up with your primary care doctor and you may need a referral to a GI specialist. As we discussed, chronic back pain means that you have it every day. That is not something that we manage or treat in the emergency department. I recommend that you follow up with your primary care doctor and with pain management as has been suggested. Problem Qualifiers MARVIN CRUMP MD Jan 27, 2017 17:28
== END 2017-01-27 17:45 | disposition home or self-care (01) ==
LOC: ER 15:40
DX: G89.29 Other chronic pain (principal); M54.9 Dorsalgia, unspecified; R19.7 Diarrhea, unspecified; J45.909 Unspecified asthma, uncomplicated; M41.9 Scoliosis, unspecified; M40.209 Unspecified kyphosis, site unspecified; Z88.6 Allergy status to analgesic agent
CPT/HCPCS: 99284

== ENCOUNTER 2017-01-28 23:31 | Emergency (ER) | payer OTHER ==
[~2017-01-28] VITALS: Ht 147.3 cm; Wt 40.8 kg
[2017-01-28 23:50] VITALS: BP 155/68
[2017-01-29] MEDS ORDERED: IBUPROFEN 600 MG TABLET. PO ONE (00:45)
--- NOTE | 2017-01-29 01:47 | PHYS DOC ---
Past Medical History Past Medical History: Asthma, Bronchitis Additional Past Medical Histor: [place], scoliosis, skin cancer, heart disease Past Surgical History: No Surgical History Additional Past Surgical Histo: TOE REMOVAL D/T CANCER Alcohol Use: None Drug Use: None Adult General Chief Complaint Chief Complaint: MULTIPLE COMPLAINTS HPI HPI Patient is a 56 year old female well known to the Emergency Department who presents with back pain. Patient has vague story of falling down stairs today, as well as having a panic attack. Her story that she tells me differs from what she told the nurse and also what she told the triage desk. She complains of general back pain, but is unable to tell me how this differs from her usual chronic back pain. She said she takes morphine for pain at home, but then say she does not have any pain medication at home. No numbness or weakness. No other acute complaints. Review of Systems Review of Systems Constitutional: Denies fever or chills Eyes: Denies change in visual acuity or eye pain HENT: Denies nasal congestion or sore throat Respiratory: Denies cough or shortness of breath Cardiovascular: Denies chest pain GI: Denies abdominal pain, nausea, vomiting, bloody stools or diarrhea : Denies dysuria or hematuria Musculoskeletal: Acute on chronic back pain Integument: Denies rash or skin lesions Neurologic: Denies headache, focal weakness or sensory changes Current Medications Current Medications Current Medications Medications (Trade) Dose Ordered Sig/[facility] Start Time Stop Time Status Last Admin Dose Admin Ibuprofen (Motrin) 600 mg 1X ONCE 01/29/17 00:45 01/29/17 00:46 DC 01/29/17 00:45 600 MG Allergies Allergies Allergies Coded Allergies Type Severity Reaction Last Updated Verified aspirin Allergy Intermediate 10/10/16 Yes Physical Exam Physical Exam Constitutional: Well developed, well nourished, no acute distress, non-toxic appearance; able to ambulate and move around without difficulty HENT: Normocephalic, atraumatic, bilateral external ears normal Eyes: EOMI, conjunctiva normal, no discharge Neck: Normal range of motion, no stridor. No midline TTP, no stepoff Cardiovascular: Heart rate normal, regular rhythm, no murmur Lungs & Thorax: Bilateral breath sounds clear to auscultation Abdomen: Bowel sounds normal, soft, non-distended, no TTP Skin: Warm, dry, no erythema, no rash Back: Marked scoliosis; general tenderness throughout entire back; no skin lesion, bruising, other acute abnormality noted Extremities: No obvious deformity, no edema Neurologic: Alert and oriented X 3, no gross deficits noted; strength and sensation to light touch in BLE intact Psychologic: Anxious Current Patient Data Vital Signs Vital Signs Date Time Temp Pulse Resp B/P Pulse Ox O2 Delivery O2 Flow Rate FiO2 01/28/17 23:50 97.5 87 24 155/68 94 Room Air 97.5 EKG EKG [] Radiology/Procedures Radiology/Procedures X-ray lumbar spine (my read): Limited exam. Scoliosis, kyphosis. No significant change from prior. X-ray thoracic spine (my read): Limited exam. Scoliosis, kyphosis. No acute abnormality. Course & Med Decision Making Course & Med Decision Making Pertinent Labs and Imaging studies reviewed. (See chart for details) Patient is 56-year-old female well known to the Emergency Department if you presents with acute on chronic back pain as well as complaint of panic attack. Will obtain x-rays of thoracic and lumbar spine, although no evidence of significant injury noted on exam. Ibuprofen ordered for pain control. I discussed with patient that due to her frequent visits to the emergency department combined with her refusal to establish with a primary care physician for management of her chronic pain and other medical conditions despite repeated instruction to do so over the course of many months, I would not give her narcotic pain medication or benzodiazepines while in the Emergency Department or as a prescription to go home with. Imaging results as above. I discussed results with patient and her , who then stated that the whole reason she is here was to be tested for chlamydia. I therefore ordered a urine chlamydia PCR screen and instructed patient that if was positive, she would be contacted and treated appropriately. However patient refused to stay and left before giving urine sample for this test. I again discussed with patient and her the importance of establishing with PCP, and have provided sheets with list of local primary care providers with which she could establish. Patient given instructions for follow up and return precautions. Dragon Disclaimer Dragon Disclaimer This electronic medical record was generated, in whole or in part, using a voice recognition dictation system. Departure Departure Impression: Primary Impression: Chronic back pain Disposition: HOME, SELF-CARE Condition: STABLE Referrals: NO PCP (PCP) Patient Instructions: Chronic Back Pain Additional Instructions: Thank you for allowing us to provide care today in the Emergency Department. Schedule a follow up appointment with a primary care doctor using the provided list. 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 Return promptly to the Emergency Department if you develop any new or concerning symptoms. JULES BANEGAS MD Jan 29, 2017 01:47
--- NOTE | 2017-01-29 07:14 | RAD ---
Indication: Pain after fall tonight. Technique: Thoracic spine series contains 5 images. Exam was performed with the patient seated in wheelchair, patient cannot lie or stand. Positioning was difficult. Findings: There is S-shaped scoliosis of the thoracic and lumbar spine. There is no subluxation. Vertebral body height appears maintained although scoliosis and portable technique limits evaluation. Degenerative changes are noted. Impression: No definite fracture. If symptoms persist, consider MRI.
--- NOTE | 2017-01-29 07:16 | RAD ---
Indication: Pain after fall. Technique: Lumbar spine series contains 4 images. Exam was performed portably with the patient sitting in a wheelchair. Patient cannot stand up or lie down. Comparison is from December 03, 2016. Findings: Levoscoliosis again is noted. Bone demineralization is present. No definite fracture or dislocation is identified. Alignment and vertebral body height appear maintained compared to prior study. Hiatal hernia is noted. Impression: No definite fracture. Stable limited examination.
== END 2017-01-29 02:07 | disposition home or self-care (01) ==
LOC: ER 23:31
DX: M54.89 Other dorsalgia (principal); G89.29 Other chronic pain; J45.909 Unspecified asthma, uncomplicated; Z88.6 Allergy status to analgesic agent; W10.9XXA Fall (on) (from) unspecified stairs and steps, initial encounter; Y93.89 Activity, other specified; Y99.8 Other external cause status; Y92.89 Other specified places as the place of occurrence of the external cause
CPT/HCPCS: 72072; 72100; 99284

== ENCOUNTER 2017-06-18 22:45 | Emergency (ER) | payer OTHER ==
[~2017-06-18] VITALS: Ht 157.5 cm; Wt 40.8 kg
[~2017-06-18 22:45] MED LIST changes: -HYDR-2672 PO; +HYDR-2766 PO; -LEVO500T38 PO; +LEVO500T59 PO
[2017-06-18 23:37] LABS: POTASSIUM ISTAT 3.6 mmol/L (3.5-5.0)
[2017-06-18 23:56] VITALS: BP 120/58
--- NOTE | 2017-06-18 23:56 | PHYS DOC ---
Past Medical History Past Medical History: Asthma, Bronchitis Additional Past Medical Histor: [place], scoliosis, skin cancer, heart disease, "ENLARGED COLON" Past Surgical History: No Surgical History Additional Past Surgical Histo: TOE REMOVAL D/T CANCER Alcohol Use: None Drug Use: None Adult General Chief Complaint Chief Complaint: anxiety HPI HPI Patient is a 57 year old female who presents ambulatory to the emergency department with the complaint of anxiety. The patient came to the emergency department with her "boyfriend" who also checked in to be seen for shortness of air and chest pain. Patient states that she is "very shaky" and nervous, she is out of her anxiety medication and she has been having a "anxiety attack" for about a week. Patient sees a doctor at [facility] and she missed her last appointment because she was hospitalized at at the time. She does have a new appointment coming up but doesn't know when it is. Patient states she was hospitalized at for bleeding from the colon and she is still having intermittent colon Bleeding, states she plans to have surgery where they will remove part or all of her colon but she does not have that scheduled yet. Patient states the last time she saw blood in the toilet was about a week ago. Today her chief complaint is anxiety. Review of Systems Review of Systems Constitutional: Denies fever or chills [] Respiratory: Denies cough or shortness of breath [] GI: As in history of present illness Musculoskeletal: She has chronic back pain Allergies Allergies Allergies Coded Allergies Type Severity Reaction Last Updated Verified aspirin Allergy Intermediate 10/10/16 Yes Physical Exam Physical Exam Constitutional: Cachectic female who appears older than her stated age alert, mentating normally, not dyspneic, good color, warm and dry. Heart rate 72, pulse ox on room air 97%. She does not appear shaky or tremulous. HENT: Normocephalic, atraumatic, bilateral external ears normal, nose normal. [ ] Eyes: conjunctiva normal, no discharge. [] Neck: Normal range of motion, no stridor. [] Cardiovascular:Heart rate regular rhythm, no murmur [] Lungs & Thorax: Bilateral breath sounds clear to auscultation [] Skin: Warm, dry, no erythema, no rash. [] Back: Profound scoliosis and kyphosis which is chronic Extremities: No tenderness, no cyanosis, no clubbing, ROM intact, no edema. [] Neurologic: Alert and oriented X 3, normal motor function, normal sensory function, no focal deficits noted. [] Current Patient Data Vital Signs Vital Signs Date Time Temp Pulse Resp B/P (MAP) Pulse Ox O2 Delivery O2 Flow Rate FiO2 06/18/17 22:55 98.8 78 22 105/56 (72) 96 Room Air 98.8 Lab Values Laboratory Tests Test 06/18/17 23:32 POC Hemoglobin 11.2 g/dL (12-15) L POC Hematocrit 33 % (36-40) L POC Sodium 138 mmol/L (135-145) POC Potassium 3.6 mmol/L (3.5-5.0) POC Chloride 102 mmol/L (98-110) POC Total CO2 25 mmol/L (23-32) Anion Gap 16 mmol/L (6-14) H POC Blood Urea Nitrogen 17 mg/dL (8-26) POC Creatinine 0.6 mg/dL (0.5-1.4) Glucose Level 116 mg/dL (70-99) H POC Ionized Calcium ([place]) 1.16 mmol/L (1.13-1.32) Laboratory Tests 06/18/17 23:32 EKG EKG 12-lead EKG read by me. Sinus rhythm. Heart rate 70. There are no acute ST or T wave changes indicative of ischemia or infarction. There is a right bundle branch block. No STEMI. 23 3 [] Radiology/Procedures Radiology/Procedures [] Course & Med Decision Making Course & Med Decision Making Pertinent Labs and Imaging studies reviewed. (See chart for details) 57-year-old female frequently seen for the complaint of anxiety presents with the complaint of anxiety, out of her anxiety medication. She does not appear anxious, she has no tremulousness or shaking, she has normal vital signs and is not tachycardic. I reassured the patient that she appears stable at this time and I discussed with the patient that she needs to follow up with her primary care doctor for refills of her chronic medications. Patient also complained of bloody stools intermittently, see history of present illness. I-STAT labs were done, her hemoglobin at 11.2 is stable, reviewed previous labs and she varies between 11 and 13. I believe she stable for outpatient follow-up with her doctor at as she has planned. [] Dragon Disclaimer Dragon Disclaimer This electronic medical record was generated, in whole or in part, using a voice recognition dictation system. Departure Departure Impression: Primary Impression: Anxiety Disposition: 01 HOME, SELF-CARE Condition: STABLE Referrals: UNKNOWN PCP NAME (PCP) Additional Instructions: As we discussed, I recommend that you see your primary care doctor to discuss further prescriptions of anxiety medication. Follow up with your surgeon at as you have planned. MARVIN CRUMP MD Jun 18, 2017 23:56
--- NOTE | 2017-06-19 00:41 | EKG ---
[facility] [address] [place] [address] Test Date: 2017-06-18 Test Time: 23:03:03 Pat Name: JACQUELINE BANERJEE Department: Room: Gender: F Rag Grader: : 1960 Requested By: MARVIN CRUMP Order Number: [id number] Reading MD: Pato Boyle Measurements Intervals [place] Rate: 70 P: 49 MI: 134 QRS: -24 QRSD: 98 T: 43 QT: 394 QTc: 428 Interpretive Statements SINUS RHYTHM LEFT ATRIAL ABNORMALITY LEFTWARD AXIS INCOMPLETE RIGHT BUNDLE BRANCH BLOCK QRS(T) CONTOUR ABNORMALITY CONSIDER ANTEROLATERAL MYOCARDIAL DAMAGE ABNORMAL ECG RI6.01 Compared to ECG 12/13/2016 21:31:37 Incomplete right bundle-branch block now present Prolonged QT interval no longer present Electronically Signed On 06-19-2017 17:08:38 CDT by Pato Boyle
== END 2017-06-19 00:09 | disposition home or self-care (01) ==
LOC: ER 22:45
DX: F41.9 Anxiety disorder, unspecified (principal); R06.02 Shortness of breath; R07.89 Other chest pain; J45.909 Unspecified asthma, uncomplicated; Z88.6 Allergy status to analgesic agent
CPT/HCPCS: 80047; 93005; 99283-25

== ENCOUNTER 2017-06-30 09:09 | Emergency (ER) | payer OTHER ==
[~2017-06-30] VITALS: Ht 162.6 cm; Wt 40.8 kg
[2017-06-30 09:46] VITALS: BP 131/62
--- NOTE | 2017-06-30 10:26 | PHYS DOC ---
Past Medical History Past Medical History: Asthma, Bronchitis Additional Past Medical Histor: [place], scoliosis, skin cancer, heart disease, "ENLARGED COLON" Past Surgical History: Hysterectomy, Other Additional Past Surgical Histo: TOE REMOVAL D/T CANCER Alcohol Use: None Drug Use: None Adult General Chief Complaint Chief Complaint: HEMORRHOIDS HPI HPI Patient is a 57 year old female who is well known to the emergency department for multiple visits. Presents to the emergency department stating that she's having problems with her hemorrhoids. She states that they hurt and itch. Patient states that she has been having normal bowel movements with no constipation. Patient denies any fever, chills or any nausea vomiting. She did state nursing staff that she has a surgical appointment to have her hemorrhoids taken care of. Patient denies any blood in her stools. Patient states that her clothing, depends rubs on the hemorrhoids and causes increased pain and discomfort. Patient is also informed nursing staff that her boyfriend have been in a fight today and she is upset and distraught at this time. Patient's boyfriend however is currently hospitalized here at our facility. Review of Systems Review of Systems Constitutional: Denies fever or chills [] Eyes: Denies change in visual acuity, redness, or eye pain [] HENT: Denies nasal congestion or sore throat [] Respiratory: Denies cough or shortness of breath [] Cardiovascular: No additional information not addressed in HPI [] GI: Denies abdominal pain, nausea, vomiting, bloody stools or diarrhea. Complaint of hemorrhoids : Denies dysuria or hematuria [] Musculoskeletal: Denies back pain or joint pain [] Integument: Denies rash or skin lesions [] Neurologic: Denies headache, focal weakness or sensory changes [] Endocrine: Denies polyuria or polydipsia [] Allergies Allergies Allergies Coded Allergies Type Severity Reaction Last Updated Verified aspirin Allergy Intermediate 10/10/16 Yes Physical Exam Physical Exam Constitutional: Well developed, well nourished, no acute distress, non-toxic appearance. Patient is upset and crying. HENT: Normocephalic, atraumatic, bilateral external ears normal, oropharynx moist, no oral exudates, nose normal. [] Eyes: PERRLA, EOMI, conjunctiva normal, no discharge. [] Neck: Normal range of motion, no tenderness, supple, no stridor. [] Cardiovascular:Heart rate regular rhythm, no murmur [] Lungs & Thorax: Bilateral breath sounds clear to auscultation [] Abdomen: Bowel sounds normal, soft, no tenderness, no masses, no pulsatile masses. [] Skin: Warm, dry, no erythema, no rash. External area around the rectum appears to have no hemorrhoids noted. She does have dried bowel secretions noted around the outer part of her rectal area. No redness no drainage no discharge noted. Back: No tenderness Extremities: No tenderness, no cyanosis, no clubbing, ROM intact, no edema. [] Neurologic: Alert and oriented X 3, normal motor function, normal sensory function, no focal deficits noted. [] Psychologic: Affect normal, judgement normal, mood normal. [] Current Patient Data Vital Signs Vital Signs Date Time Temp Pulse Resp B/P (MAP) Pulse Ox O2 Delivery O2 Flow Rate FiO2 06/30/17 09:46 74 22 131/62 (85) 96 Room Air 06/30/17 09:21 98.8 98.8 EKG EKG [] Radiology/Procedures Radiology/Procedures [] Course & Med Decision Making Course & Med Decision Making Pertinent Labs and Imaging studies reviewed. (See chart for details) Patient will be discharged home with recommendations to use soap and water to clean around the rectal area to remove all of the stool around the area. Patient became upset stating that she cannot go home by herself. Patient states her boyfriend has hospitalized here. Explained to patient that I have no reason to keep her here into the hospital. Patient states that she has nowhere to go. Explained to patient that she will not be admitted into the hospital as I do not have any reasons. Once again patient denies any nausea vomiting fever chills she denies any rectal bleeding. She does state she has hemorrhoids however no hemorrhoids are noted on the external area. Patient will be discharged home in stable condition with recommendations for her to follow up with her surgeon who is going to perform her hemorrhoidectomy. She'll be provided with a list of physicians to follow up with. [] Dragon Disclaimer Dragon Disclaimer This electronic medical record was generated, in whole or in part, using a voice recognition dictation system. Departure Departure Impression: Primary Impression: Hemorrhoids Disposition: HOME, SELF-CARE Condition: STABLE Referrals: UNKNOWN PCP NAME (PCP) Patient Instructions: Hemorrhoids, [id number] Additional Instructions: Activity as tolerated. You may use Colace to help have softer bowel movements to prevent irritation with hemorrhoids. Follow-up with your surgeon who is going to perform a hemorrhoidectomy. Warm sitz baths may also help the area around the rectum feel more comfortable. Return to emergency department as needed. DAMIR PATEL APRN Jun 30, 2017 10:26
== END 2017-06-30 10:36 | disposition home or self-care (01) ==
LOC: ER 09:09
DX: K64.9 Unspecified hemorrhoids (principal); J45.909 Unspecified asthma, uncomplicated; M41.9 Scoliosis, unspecified; I51.9 Heart disease, unspecified; K59.39 Other megacolon; Z88.6 Allergy status to analgesic agent; Z90.710 Acquired absence of both cervix and uterus
CPT/HCPCS: 99281

== ENCOUNTER 2018-02-16 01:40 | Emergency (ER) | payer OTHER ==
[2018-02-16] MEDS: ACETAMINOPHEN 500 MG TABLET PO ×2 (03:30)
[2018-02-16] MEDS: cefTRIAXone IM 1 GM VIAL IM (03:31)
== END 2018-02-16 03:52 | disposition home or self-care (01) ==
LOC: ER 01:40
DX: L03.116 Cellulitis of left lower limb (principal); J45.909 Unspecified asthma, uncomplicated; Z59.0 Homelessness; F17.210 Nicotine dependence, cigarettes, uncomplicated; Z85.828 Personal history of other malignant neoplasm of skin; Z88.6 Allergy status to analgesic agent
CPT/HCPCS: 93971; 96372; 99284-25; J0696

== ENCOUNTER 2018-09-03 23:06 | Emergency (ER) | payer OTHER ==
[~2018-09-03] VITALS: Ht 152.4 cm; Wt 66.7 kg
[~2018-09-03 23:06] MED LIST changes: +CLIN300C8 PO
[2018-09-03] MEDS ORDERED: HYDR-971 PO (23:58)
[2018-09-04] MEDS ORDERED: HYDROcodone/APAP 5/325MG 1 TAB TABLET PO ONE
[2018-09-04] MEDS ORDERED: CLOT15CR4 TP
--- NOTE | 2018-09-04 00:34 | PHYS DOC ---
Past Medical History Past Medical History: Asthma, Bronchitis, COPD Additional Past Medical Histor: [place], scoliosis, skin cancer, heart disease, "ENLARGED COLON" Past Surgical History: Hysterectomy, Other Additional Past Surgical Histo: TOE REMOVAL D/T CANCER Alcohol Use: None Drug Use: None Adult General Chief Complaint Chief Complaint: FOOT INJURY PAIN HPI HPI Patient is a 58 year old female who presents with blisters on her feet. Patient is currently victim to a very poor social situation. She is homeless and staying in a van that is parked at her brother and [id number]'s house. She has house slippers to wear but no other shoes or socks. She endorses that she has been primarily outside over the last many weeks including in the rain and does not have availability of dry or better footwear. This evening, she comes to the emergency department by ambulance complaining of blisters on her feet. She states the pain in her feet has become too severe over the last 24 hours and she decided to come to the ER. No fever or chills. No trauma. The only injury she has sustained is exposure to the elements and consistent moisture. Review of Systems Review of Systems Constitutional: Denies fever or chills Eyes: Denies change in visual acuity Respiratory: Denies Cardiovascular: No additional information GI: Denies abdominal pain Musculoskeletal: Denies back pain Integument: c/o blisters on feet Neurologic: Denies headache All other systems were reviewed and found to be within normal limits, except as documented in this note. Current Medications Current Medications Current Medications Medications (Trade) Dose Ordered Sig/Gerardo Start Time Stop Time Status Last Admin Dose Admin Acetaminophen/ Hydrocodone Bitart (Lortab 5/325) 2 tab 1X ONCE 09/04/18 00:00 09/04/18 00:01 DC 09/03/18 23:58 2 TAB Allergies Allergies Allergies Coded Allergies Type Severity Reaction Last Updated Verified aspirin Allergy Intermediate 10/10/16 Yes Physical Exam Physical Exam Constitutional: This is a disheveled elderly appearing female in no acute distress HENT: Normocephalic, atraumatic Eyes: PERRLA, EOMI Neck: Normal range of motion Cardiovascular:Heart rate regular rhythm, no murmur Lungs & Thorax: Bilateral breath sounds clear Skin: Warm, dry, intertrigo in the left lower abdominal skin fold Extremities: bilateral feet with erythematous skin, blisters present over plantar surfaces bilaterally. Many toenails with fungal infections and disfigured Neurologic: Alert and oriented X 3 Psychologic: Affect normal Current Patient Data Vital Signs Vital Signs Date Time Temp Pulse Resp B/P (MAP) Pulse Ox O2 Delivery O2 Flow Rate FiO2 09/03/18 23:58 20 99 Room Air 09/03/18 23:06 97.6 92 128/59 (82) 97.6 EKG EKG [] Radiology/Procedures Radiology/Procedures [] Course & Med Decision Making Course & Med Decision Making Pertinent Labs and Imaging studies reviewed. (See chart for details) Patient is evaluated in the emergency department for what is primarily an exposure to the element type injury. The skin on her feet is erythematous and she has multiple blisters. She also has significant subungual fungal infections and disfigured toenails bilaterally. She is currently wearing house slippers which she states are the only footwear she has. She has been ambulating outside with wet feet over the last week. Unfortunately, there is little available treatment for this patient in the emergency department or as an inpatient for this condition. I explained to her that the treatment is simply to keep her feet dry and open to air when available and that she needs improved footwear. We are making attempts to acquire improved footwear for her during the ER course. Regarding her pain, she is given some hydrocodone and will be given a prescription for the same. The patient states she does have Medicaid and will be able to fill a prescription. As a secondary complaint, she was concerned about a rash on the right side of her lower abdomen. Physical exam is revealing for intertrigo in that area. Patient is given a prescription for clotrimazole to use at home. She is encouraged to follow-up with a sap data architect and to maintain dry feet as much as possible. She is provided CAB transportation back to the location from where she came. Dragon Disclaimer Dragon Disclaimer This electronic medical record was generated, in whole or in part, using a voice recognition dictation system. Departure Departure Impression: Primary Impression: Trench feet Additional Impression: Candidal intertrigo Disposition: HOME, SELF-CARE Condition: GOOD Referrals: ROMY RAMIREZ MD NO PCP (PCP) Patient Instructions: Intertrigo, Dwrp-od-Vasr, Blisters Scripts Clotrimazole (CLOTRIMAZOLE) 15 Gm Cream..g. 1 JOE TP TID, #45 GM Prov: FRANK BENITES DO 09/04/18 Hydrocodone/Apap 5-325 (NORCO 5-325 TABLET) 1 Each Tablet 1-2 EACH PO PRN Q6HRS PRN for severe pain, #15 as needed for pain Prov: FRANK BENITES DO 09/03/18 Problem Qualifiers FRANK BENITES DO Sep 04, 2018 00:34
[2018-09-04 01:49] VITALS: BP 118/76
== END 2018-09-04 02:12 | disposition home or self-care (01) ==
LOC: ER 23:06
DX: T69.022A Immersion foot, left foot, initial encounter (principal); T69.021A Immersion foot, right foot, initial encounter; B37.2 Candidiasis of skin and nail; Z59.0 Homelessness; J44.9 Chronic obstructive pulmonary disease, unspecified; Z88.6 Allergy status to analgesic agent; X31.XXXA Exposure to excessive natural cold, initial encounter
CPT/HCPCS: 99284

== ENCOUNTER 2019-12-18 08:32 | Inpatient (IN) | payer MEDICAID, OTHER ==
[~2019-12-18] VITALS: Ht 162.6 cm; Wt 45.0 kg
[~2019-12-18 08:32] MED LIST changes: +CLOT15CR4 TP; -HYDR-2766 PO; +HYDR-2769 PO; +HYDR-3164 PO; -HYDR-971 PO
--- NOTE | 2019-12-18 09:11 | PHYS DOC ---
Past Medical History Past Medical History: Asthma, Bronchitis, COPD Additional Past Medical Histor: [place], scoliosis, skin cancer, heart disease," ENLARGED COLON" Past Surgical History: Hysterectomy, Other Additional Past Surgical Histo: TOE REMOVAL D/T CANCER Alcohol Use: None Drug Use: None Adult General Chief Complaint Chief Complaint: FLU SYMPTOM HPI HPI Patient is a 59 year old female who presents with states 2 weeks ago she went to and was diagnosed with the flu but was not given anything. She states that she thinks she may have pneumonia. She is still COPD and bronchitis and asthma and her history. States she's not been taking any steroid or breathing treatmen ts at home. States that she has not been taking anything for symptoms at home. She has a cough and chills. States that she is short of air in her throat hurts. She rates her pain a 9 out of 10. Patient also started saying that she hasn't taken her thyroid medication this morning. She states that she doesn't have any. Review of Systems Review of Systems Constitutional: fever or chills [] Eyes: Denies change in visual acuity, redness, or eye pain [] HENT: Denies nasal congestion. sore throat [] Respiratory: cough or shortness of breath [] All other systems were reviewed and found to be within normal limits, except as documented in this note. Current Medications Current Medications Current Medications Medications (Trade) Dose Ordered Sig/Gerardo Start Time Stop Time Status Last Admin Dose Admin Acetaminophen (Tylenol) 650 mg PRN Q4HRS PRN 12/18/19 11:30 12/19/19 11:29 Albuterol Sulfate (Ventolin Neb Soln) 2.5 mg 1X ONCE 12/18/19 10:00 12/18/19 10:01 DC 12/18/19 09:39 2.5 MG Albuterol/ Ipratropium (Duoneb) 3 ml RTQID 12/18/19 12:00 12/19/19 11:59 Ceftriaxone Sodium (Rocephin) 1 gm 1X ONCE 12/18/19 10:00 12/18/19 10:01 DC 12/18/19 10:27 1 GM Doxycycline Hyclate 100 mg/ Dextrose 100 ml @ 50 mls/hr 1X ONCE 12/18/19 10:30 12/18/19 12:29 12/18/19 10:32 50 MLS/HR Fentanyl Citrate (Fentanyl 2ml Vial) 50 mcg PRN Q1HR PRN 12/18/19 11:30 12/19/19 11:29 Ondansetron HCl (Zofran) 4 mg PRN Q8HRS PRN 12/18/19 11:30 12/19/19 11:29 Prednisone (Prednisone) 50 mg 1X ONCE 12/18/19 09:30 12/18/19 09:31 DC 12/18/19 09:54 50 MG Allergies Allergies Allergies Coded Allergies Type Severity Reaction Last Updated Verified aspirin Allergy Intermediate 10/10/16 Yes Physical Exam Physical Exam Constitutional: Well developed, well nourished, no acute distress, non-toxic appearance. [] HENT: Normocephalic, atraumatic, bilateral external ears normal, oropharynx moist, no oral exudates, nose normal. Bilateral tympanics pink. [] Eyes: PERRLA, EOMI, conjunctiva normal, no discharge. [] Neck: Normal range of motion, no tenderness, supple, no stridor. [] Cardiovascular:Heart rate regular rhythm, no murmur [] Lungs & Thorax: Bilateral upper breath sounds expiratory wheezing to and lower diminished auscultation [] Abdomen: Bowel sounds normal, soft, no tenderness, no masses, no pulsatile masses. [] Skin: Warm, dry, no erythema, no rash. [] Back: No tenderness, no CVA tenderness. [] Extremities: No tenderness, no cyanosis, no clubbing, ROM intact, no edema. [] Neurologic: Alert and oriented X 3, normal motor function, normal sensory function, no focal deficits noted. [] Psychologic: Affect normal, judgement normal, mood normal. [] Current Patient Data Vital Signs Vital Signs Date Time Temp Pulse Resp B/P (MAP) Pulse Ox O2 Delivery O2 Flow Rate FiO2 12/18/19 09:38 97 Room Air 12/18/19 08:40 97.9 85 20 162/71 (101) 97.9 Lab Values Laboratory Tests Test 12/18/19 10:16 12/18/19 10:47 White Blood Count 12.0 x10^3/uL (4.0-11.0) H Red Blood Count 4.27 x10^6/uL (3.50-5.40) Hemoglobin 12.3 g/dL (12.0-15.5) Hematocrit 37.5 % (36.0-47.0) Mean Corpuscular Volume 88 fL (79-100) Mean Corpuscular Hemoglobin 29 pg (25-35) Mean Corpuscular Hemoglobin Concent 33 g/dL (31-37) Red Cell Distribution Width 14.2 % (11.5-14.5) Platelet Count 604 x10^3/uL (140-400) H Neutrophils (%) (Auto) 69 % (31-73) Lymphocytes (%) (Auto) 20 % (24-48) L Monocytes (%) (Auto) 9 % (0-9) Eosinophils (%) (Auto) 1 % (0-3) Basophils (%) (Auto) 1 % (0-3) Neutrophils # (Auto) 8.3 x10^3/uL (1.8-7.7) H Lymphocytes # (Auto) 2.4 x10^3/uL (1.0-4.8) Monocytes # (Auto) 1.1 x10^3/uL (0.0-1.1) Eosinophils # (Auto) 0.2 x10^3/uL (0.0-0.7) Basophils # (Auto) 0.1 x10^3/uL (0.0-0.2) Sodium Level 137 mmol/L (136-145) Potassium Level 3.4 mmol/L (3.5-5.1) L Chloride Level 100 mmol/L (98-107) Carbon Dioxide Level 25 mmol/L (21-32) Anion Gap 12 (6-14) Blood Urea Nitrogen 16 mg/dL (7-20) Creatinine 0.8 mg/dL (0.6-1.0) Estimated GFR (Cockcroft-Gault) 73.2 BUN/Creatinine Ratio 20 (6-20) Glucose Level 159 mg/dL (70-99) H Lactic Acid Level 2.5 mmol/L (0.4-2.0) H Calcium Level 9.0 mg/dL (8.5-10.1) Total Bilirubin 0.3 mg/dL (0.2-1.0) Aspartate Amino Transferase (AST) 15 U/L (15-37) Alanine Aminotransferase (ALT) 10 U/L (14-59) L Alkaline Phosphatase 68 U/L (46-116) Troponin I Quantitative < 0.017 ng/mL (0.000-0.055) Total Protein 6.8 g/dL (6.4-8.2) Albumin 2.7 g/dL (3.4-5.0) L Albumin/Globulin Ratio 0.7 (1.0-1.7) L Laboratory Tests 12/18/19 10:16 Laboratory Tests 12/18/19 10:47 EKG EKG Sinus Rhythm and no STEMI[] Interpretation Time: [address] Mejia Radiology/Procedures Radiology/Procedures [] Impressions: [facility] [address] [place] [address] IMAGING REPORT Signed PATIENT: JACQUELINE BANERJEE ACCOUNT: [id number] : 1960 LOCATION: ER AGE: 59 SEX: F EXAM STATUS: PRE ER ORD. PHYSICIAN: DAMIR DOUGLASS APRN REASON: cough PROCEDURE: CHEST PA & LATERAL EXAM: Chest, 2 views. HISTORY: Cough. COMPARISON: 01/07/2017 FINDINGS: 2 views of the chest are obtained. There is left greater than right infrahilar compressive atelectasis or infiltrate. There is a large hiatal hernia. There is eventration of the right hemidiaphragm or a right diaphragmatic hernia. There is no pneumothorax or pleural effusion. There are healed rib fractures. There is kyphosis of the thoracolumbar junction. IMPRESSION: 1. Left greater than right infrahilar atelectasis or interstitial infiltrate. 2. Large hiatal hernia. Electronically signed by: Danielle Gao MD (12/18/2019 9:39 AM) [facility] [place] DICTATED and SIGNED BY: DANIELLE GAO MD DATE: 12/18/19 0939 Course & Med Decision Making Course & Med Decision Making Alert and oriented. Speaks in full clear sentences. Ambulatory with a steady ga it. Vital signs are within normal limits. Upper lungs sounds have slight expiratory wheezes and lower lung sounds are clear. No pedal edema. Abdomen soft and nontender. Skin pink warm and dry. Throat is pink without exudates or swelling. Bilateral tympanic is are pink. Afebrile. Patient denies chest pain, back pain, nausea, vomiting, abdominal pain, diarrhea, headache, dizziness, syncope, visual changes, weakness. Patient is getting a breathing treatment, steroid and chest x-ray in the emergency room. Patient is concerned that she has a flu. The patient that she is out of the window for Tamiflu as this is been going on for 2 weeks and she was diagnosed the flu 2 weeks ago. Agent would not finish breathing treatment and stated that we have to admit her because she is too sick to finish the treatment and her house doesn't have any heating. Xray shows bilateral pneumonia and a large hiatal hernia. Patient to be admitted to hospital per Dr Prater. Arleen Disclaimer Arleen Disclaimer This electronic medical record was generated, in whole or in part, using a voice recognition dictation system. Date and Time of Reassessment Date: Dec 18, 2019 Time: 11:25 Fluid Challenge Is the fluid challenge complet: No IBW Target Volume Used: Yes BMI > 30: No Vital Signs Vital Signs: Vital Signs Date Time Temp Pulse Resp B/P (MAP) Pulse Ox O2 Delivery O2 Flow Rate FiO2 12/18/19 09:38 97 Room Air 12/18/19 08:40 97.9 85 20 162/71 (101) 97.9 Temperature Source: Oral Respirations Respiratory Effort: Normal Respiratory Pattern: Normal Cardiovascular Pulse Rhythm: Regular Heart: Nml rate, reg. rhythm Lung Sounds Breath Sounds: Clear Capillary Refil Capillary Refill: Rt Hand > 3 seconds Peripheral Pulse Pulse Location: Radial Pulse Strength: Normal (2+) Pulse Assessment Method: Monitor Integumentary Skin: Warm Skin Moisture: Dry Skin Turgor: Normal Skin Color: warm Fingernail Color: WNL Departure Departure Impression: Primary Impression: Pneumonia Disposition: ADMITTED INPATIENT Admitting Physician: HIMS Condition: STABLE Referrals: NO PCP (PCP) Problem Qualifiers Primary Impression: Pneumonia Pneumonia type: due to unspecified organism Laterality: bilateral Lung location: lower lobe of lung Qualified Codes: J18.9 - Pneumonia, unspecified organism DAMIR DOUGLASS APRN Dec 18, 2019 09:11
[2019-12-18] MEDS ORDERED: predniSONE 10 MG TABLET PO ONE (09:30)
--- NOTE | 2019-12-18 09:42 | RAD ---
EXAM: Chest, 2 views. HISTORY: Cough. COMPARISON: 01/07/2017 FINDINGS: 2 views of the chest are obtained. There is left greater than right infrahilar compressive atelectasis or infiltrate. There is a large hiatal hernia. There is eventration of the right hemidiaphragm or a right diaphragmatic hernia. There is no pneumothorax or pleural effusion. There are healed rib fractures. There is kyphosis of the thoracolumbar junction. IMPRESSION: 1. Left greater than right infrahilar atelectasis or interstitial infiltrate. 2. Large hiatal hernia. Electronically signed by: Danielle Royal MD (12/18/2019 9:39 AM) [facility] [place]
[2019-12-18] MEDS ORDERED: cefTRIAXone IV Push 1 GM VIAL. IVP ONE (10:00)
[2019-12-18] MEDS ORDERED: ALBUTEROL SULFATE 2.5 MG/3 ML NEBU. NEB ONE (10:00)
[2019-12-18 10:28] LABS: BASO # 0.1 x10^3/uL (0.0-0.2); BASO % 1 % (0-3); EOS # 0.2 x10^3/uL (0.0-0.7); EOS % 1 % (0-3); HEMATOCRIT 37.5 % (36.0-47.0); HEMOGLOBIN 12.3 g/dL (12.0-15.5); LYMPH # 2.4 x10^3/uL (1.0-4.8); LYMPH % 20 % (24-48); MEAN CORPUSCULAR HEMOGLOBIN 29 pg (25-35); MEAN CORPUSCULAR HGB CONC 33 g/dL (31-37); MEAN CORPUSCULAR VOLUME 88 fL (79-100); MONO # 1.1 x10^3/uL (0.0-1.1); MONO % 9 % (0-9); NEUT # 8.3 x10^3/uL (1.8-7.7); NEUT % 69 % (31-73); PLATELET COUNT 604 x10^3/uL (140-400); RED BLOOD COUNT 4.27 x10^6/uL (3.50-5.40); RED CELL DISTRIBUTION WIDTH 14.2 % (11.5-14.5)
[2019-12-18] MEDS ORDERED: DOXYCYCLINE HYCLATE 100 MG in IV DEXTROSE 5% 100ML 100 ML IV ONE (10:30)
[2019-12-18 11:08] LABS: CREATININE 0.8 mg/dL (0.6-1.0); GFR 73.2; POTASSIUM 3.4 mmol/L (3.5-5.1)
[2019-12-18 11:15] LABS: ALBUMIN 2.7 g/dL (3.4-5.0); ALBUMIN/GLOBULIN RATIO 0.7 (1.0-1.7); TOTAL BILIRUBIN 0.3 mg/dL (0.2-1.0); TOTAL PROTEIN 6.8 g/dL (6.4-8.2)
[2019-12-18] MEDS ORDERED: ONDANSETRON PF 4 MG/2 ML VIAL. IV PRN (11:30)
[2019-12-18] MEDS ORDERED: IV NORMAL SALINE 1000ML BAG 1,000 ML IV ONE ×2 (11:30)
[2019-12-18] MEDS ORDERED: ACETAMINOPHEN 325 MG TABLET. PO PRN (11:30)
[2019-12-18] MEDS ORDERED: fentaNYL PF VIAL 100 MCG/2 ML VIAL IV PRN (11:30)
--- NOTE | 2019-12-18 11:37 | EKG ---
[facility] [address] [place] [address] Test Date: 2019-12-18 Test Time: 10:32:31 Pat Name: JACQUELINE BANERJEE Department: Room: Gender: F Air Grinder: : 1960 Requested By: DAMIR DOUGLASS Order Number: [id number] Reading MD: Measurements Intervals [place] Rate: 75 P: 42 VA: 152 QRS: -12 QRSD: 84 T: 88 QT: 396 QTc: 445 Interpretive Statements SINUS RHYTHM LEFT ATRIAL ABNORMALITY LEFTWARD AXIS INCOMPLETE RIGHT BUNDLE BRANCH BLOCK T ABNORMALITY IN HIGH LATERAL LEADS ABNORMAL ECG RI6.01 No previous ECG available for comparison
[2019-12-18] MEDS ORDERED: IPRATRPIUM/ALBUTEROL 0.5/2.5MG 3 ML NEBU. NEB SCH (12:00)
[2019-12-18] MEDS ORDERED: AZITHROMYCIN 250 MG TABLET. PO ONE (13:15)
[2019-12-18] MEDS ORDERED: NON FORMULARY ITEM (Ondansetron Hcl (Zofran) 1 TAB) PO PRN (13:15)
[2019-12-18] MEDS ORDERED: POTASSIUM CHLORIDE 20 MEQ TABLET.ER. PO ONE (13:15)
[2019-12-18] MEDS ORDERED: ONDANSETRON ODT 4 MG TAB.RAPDIS. PO PRN (13:15)
[2019-12-18] MEDS ORDERED: ONDANSETRON PF 4 MG/2 ML VIAL. IVP PRN (13:15)
[2019-12-18] MEDS ORDERED: guaiFENesin DM 200MG/20MG 10 ML SYRUP PO PRN (13:15)
[2019-12-18] MEDS ORDERED: cloNIDine HCL 0.1 MG TABLET PO PRN (13:15)
[2019-12-18] MEDS ORDERED: ACETAMINOPHEN 500 MG TABLET PO PRN (13:15)
[2019-12-18 13:20] VITALS: BP 92/41
--- NOTE | 2019-12-18 13:28 | PDOC1 ---
History and Physical Date of Admission Date of Admission DATE: 12/18/19 TIME: 13:19 Identification/Chief Complaint Chief Complaint flu like sxs at SNU. chills Source Source: Caregiver, Chart review, Patient History of Present Illness History of Present Illness 59 white female, SNU resident not the best historian, some psych meds including olanzapine etc on file, FLU like sx plus chills few days in SNu,.CXR shows LEFT > RT haziness,admitted HCAP. FLu not yet ordered, hungry, doubled up and feels cold, multiple sheets, hungry, minimal subQ tissue. She does smoke few cigars in SNU every so often, ambulates there and can feed herself ASA allergy only SOme yellowish phlegm in SNU Past Medical History Cardiovascular: HTN Psych: Anxiety, Psychosis Past Surgical History Past Surgical History: No pertinent history Family History Family History: Family History Unknown Social History Smoke: <1 pack per day ALCOHOL: occassional Drugs: None Current Problem List Problem List Problems Medical Problems: (1) Pneumonia Status: Acute Current Medications Current Medications Current Medications Prednisone (Prednisone) 50 mg 1X ONCE PO Last administered on 12/18/19at 09:54; Start 12/18/19 at 09:30; Stop 12/18/19 at 09:31; Status DC Albuterol Sulfate (Ventolin Neb Soln) 2.5 mg 1X ONCE NEB Last administered on 12/18/19at 09:39; Start 12/18/19 at 10:00; Stop 12/18/19 at 10:01; Status DC Doxycycline Hyclate 100 mg/ Dextrose 100 ml @ 50 mls/hr 1X ONCE IV Last administered on 12/18/19at 10:32; Start 12/18/19 at 10:30; Stop 12/18/19 at 12:29; Status DC Ceftriaxone Sodium (Rocephin) 1 gm 1X ONCE IVP Last administered on 12/18/19at 10:27; Start 12/18/19 at 10:00; Stop 12/18/19 at 10:01; Status DC Ondansetron HCl (Zofran) 4 mg PRN Q8HRS PRN IV NAUSEA/VOMITING; Start 12/18/19 at 11:30; Stop 12/18/19 at 13:17; Status DC Fentanyl Citrate (Fentanyl 2ml Vial) 50 mcg PRN Q1HR PRN IV PAIN; Start 12/18/19 at 11:30; Stop 12/19/19 at 11:29 Acetaminophen (Tylenol) 650 mg PRN Q4HRS PRN PO FEVER; Start 12/18/19 at 11:30; Stop 12/18/19 at 13:17; Status DC Albuterol/ Ipratropium (Duoneb) 3 ml RTQID NEB ; Start 12/18/19 at 12:00; Stop 12/18/19 at 13:17; Status DC Sodium Chloride 1,000 ml @ 1,000 mls/hr 1X ONCE IV Last administered on 12/18/19at 11:58; Start 12/18/19 at 11:30; Stop 12/18/19 at 12:29; Status DC Sodium Chloride 1,000 ml @ 1,000 mls/hr 1X ONCE IV ; Start 12/18/19 at 11:30; Stop 12/18/19 at 12:29; Status DC Albuterol/ Ipratropium (Duoneb) 3 ml RTQID NEB ; Start 12/18/19 at 16:00 Ondansetron HCl (Zofran) 4 mg PRN Q6HRS PRN IVP NAUSEA/VOMITING; Start 12/18/19 at 13:15 Acetaminophen (Tylenol) 500 mg PRN Q6HRS PRN PO MILD PAIN / TEMP; Start 12/18/19 at 13:15 Acetaminophen/ Codeine Phosphate (Tylenol #3) 1 tab PRN Q6HRS PRN PO MODERATE PAIN; Start 12/18/19 at 13:15 Benzonatate (Tessalon Perle) 100 mg EUP208 PO ; Start 12/18/19 at 14:00 Guaifenesin (Robitussin Dm) 10 ml PRN Q6HRS PRN PO COUGH; Start 12/18/19 at 13:15 Temazepam (Restoril) 7.5 mg PRN QHS PRN PO INSOMNIA; Start 12/18/19 at 13:15; Status UNV Clonidine HCl (Catapres) 0.1 mg PRN Q1HR PRN PO HYPERTENSION; Start 12/18/19 at 13:15; Status UNV Ceftriaxone Sodium (Rocephin) 1 gm Q24H IVP ; Start 12/18/19 at 13:15; Status UNV Azithromycin (Zithromax) 500 mg 1X ONCE PO ; Start 12/18/19 at 13:15; Stop 12/18/19 at 13:16; Status UNV Azithromycin (Zithromax) 250 mg DAILY PO ; Start 12/19/19 at 09:00; Status UNV Clotrimazole (Lotrimin) 1 joaquín TID TP ; Start 12/18/19 at 14:00; Status UNV Acetaminophen/ Hydrocodone Bitart (Lortab 5/325) 1 tab PRN Q6HRS PRN PO PAIN; Start 12/18/19 at 13:15; Status UNV Hydroxyzine HCl (Atarax) 25 mg PRN BID PRN PO ANXIETY / AGITATION; Start 12/18/19 at 13:15; Status UNV Levothyroxine Sodium (Synthroid) 112 mcg DAILY07 PO ; Start 12/19/19 at 07:00; Status UNV Lorazepam (Ativan) 0.5 mg BID PO ; Start 12/18/19 at 21:00; Status UNV Ondansetron HCl (Zofran Odt) 4 mg PRN Q8HRS PRN PO NAUSEA; Start 12/18/19 at 13:15; Status UNV Quetiapine Fumarate (SEROquel) 25 mg QHS PO ; Start 12/18/19 at 21:00; Status UNV Non-Formulary Medication (Ondansetron Hcl (Zofran)) 1 tab Q8HRS PRN PO NAUSEA; Start 12/18/19 at 13:15; Status UNV Potassium Chloride (Klor-Con) 40 meq 1X ONCE PO ; Start 12/18/19 at 13:15; St op 12/18/19 at 13:16; Status UNV Active Scripts Active Clotrimazole 15 Gm Cream..g. 1 Joaquín TP TID [place] 5-325 Tablet (Acetaminophen/Hydrocodone Bitart) 1 Each Tablet 1-2 Each PO PRN Q6HRS PRN as needed for pain Clindamycin Hcl 300 Mg Capsule 1 Cap PO TID Levaquin (Levofloxacin) 500 Mg Tablet 1 Tab PO DAILY Zofran Odt (Ondansetron) 4 Mg Tab.rapdis 1 Tab SL PRN Q8HRS PRN Hydroxyzine Hcl 25 Mg Tablet 1 Tab PO PRN BID PRN [Vancomycin Hcl] 250 MG/5 ML Solution 250 Mg PO QID 10 Days Ativan (Lorazepam) 0.5 Mg Tablet 0.5 Mg PO BID [place] 5-325 Tablet (Acetaminophen/Hydrocodone Bitart) 1 Each Tablet 1 Tab PO PRN Q6HRS PRN Zofran (Ondansetron Hcl) 4 Mg Tablet 1 Tab PO Q8HRS PRN Hydrocodone-Apap 10-325 (Hydrocodone Bit/Acetaminophen) 1 Each Tablet 1 Tab PO PRN Q6HRS PRN Quetiapine Fumarate 25 Mg Tablet 25 Mg PO QHS Levothyroxine Sodium 112 Mcg Tablet 112 Mcg PO DAILY07 Reported Morphine Sulfate 30 Mg Tablet 1 Tab PO TID Allergies Allergies: Coded Allergies: aspirin (Verified Allergy, Intermediate, 10/10/16) ROS Review of System as per HPI, all else neg 14 pt reviewed with her Physical Exam General: Alert, Oriented X3, Cooperative, No acute distress, Other (doubled up, feels cold) HEENT: Atraumatic, PERRLA Lungs: Normal air movement, Other (diminshed bases,. no wheezing, equal air entry, dullness to percussion left > rt) Heart: S1S2, RRR, no thrills, no rubs, no gallops Cardiovascular: S1, S2 Breasts: Normal, Rt breast nml w/o mass, Lt breast nml w/o mass, Nipples normal Rectal Exam: not examined PELVIC: Nml ext genitalia Extremities: No clubbing, No cyanosis, No edema, Normal pulses, No tenderness/swelling Skin: No rashes, No breakdown, No significant lesion Neuro: Normal gait, Normal speech, Strength at 5/5 X4 ext, Normal tone, Sensation intact, Cranial nerves 3-12 NL, Reflexes 2+ Psych/Mental Status: Mental status NL, Mood NL Vitals Vitals Vital Signs Date Time Temp Pulse Resp B/P (MAP) Pulse Ox O2 Delivery O2 Flow Rate FiO2 12/18/19 11:37 74 18 132/66 (88) 97 Room Air 12/18/19 08:40 97.9 97.9 Labs Labs Laboratory Tests Test 12/18/19 10:16 12/18/19 10:47 White Blood Count 12.0 x10^3/uL (4.0-11.0) Red Blood Count 4.27 x10^6/uL (3.50-5.40) Hemoglobin 12.3 g/dL (12.0-15.5) Hematocrit 37.5 % (36.0-47.0) Mean Corpuscular Volume 88 fL (79-100) Mean Corpuscular Hemoglobin 29 pg (25-35) Mean Corpuscular Hemoglobin Concent 33 g/dL (31-37) Red Cell Distribution Width 14.2 % (11.5-14.5) Platelet Count 604 x10^3/uL (140-400) Neutrophils (%) (Auto) 69 % (31-73) Lymphocytes (%) (Auto) 20 % (24-48) Monocytes (%) (Auto) 9 % (0-9) Eosinophils (%) (Auto) 1 % (0-3) Basophils (%) (Auto) 1 % (0-3) Neutrophils # (Auto) 8.3 x10^3/uL (1.8-7.7) Lymphocytes # (Auto) 2.4 x10^3/uL (1.0-4.8) Monocytes # (Auto) 1.1 x10^3/uL (0.0-1.1) Eosinophils # (Auto) 0.2 x10^3/uL (0.0-0.7) Basophils # (Auto) 0.1 x10^3/uL (0.0-0.2) Sodium Level 137 mmol/L (136-145) Potassium Level 3.4 mmol/L (3.5-5.1) Chloride Level 100 mmol/L (98-107) Carbon Dioxide Level 25 mmol/L (21-32) Anion Gap 12 (6-14) Blood Urea Nitrogen 16 mg/dL (7-20) Creatinine 0.8 mg/dL (0.6-1.0) Estimated GFR (Cockcroft-Gault) 73.2 BUN/Creatinine Ratio 20 (6-20) Glucose Level 159 mg/dL (70-99) Lactic Acid Level 2.5 mmol/L (0.4-2.0) Calcium Level 9.0 mg/dL (8.5-10.1) Total Bilirubin 0.3 mg/dL (0.2-1.0) Aspartate Amino Transf (AST/SGOT) 15 U/L (15-37) Alanine Aminotransferase (ALT/SGPT) 10 U/L (14-59) Alkaline Phosphatase 68 U/L (46-116) Troponin I Quantitative < 0.017 ng/mL (0.000-0.055) VF-Zar-F-Type Natriuretic Peptide 82 pg/mL (0-124) Total Protein 6.8 g/dL (6.4-8.2) Albumin 2.7 g/dL (3.4-5.0) Albumin/Globulin Ratio 0.7 (1.0-1.7) Laboratory Tests Test 12/18/19 10:16 12/18/19 10:47 White Blood Count 12.0 x10^3/uL (4.0-11.0) Red Blood Count 4.27 x10^6/uL (3.50-5.40) Hemoglobin 12.3 g/dL (12.0-15.5) Hematocrit 37.5 % (36.0-47.0) Mean Corpuscular Volume 88 fL (79-100) Mean Corpuscular Hemoglobin 29 pg (25-35) Mean Corpuscular Hemoglobin Concent 33 g/dL (31-37) Red Cell Distribution Width 14.2 % (11.5-14.5) Platelet Count 604 x10^3/uL (140-400) Neutrophils (%) (Auto) 69 % (31-73) Lymphocytes (%) (Auto) 20 % (24-48) Monocytes (%) (Auto) 9 % (0-9) Eosinophils (%) (Auto) 1 % (0-3) Basophils (%) (Auto) 1 % (0-3) Neutrophils # (Auto) 8.3 x10^3/uL (1.8-7.7) Lymphocytes # (Auto) 2.4 x10^3/uL (1.0-4.8) Monocytes # (Auto) 1.1 x10^3/uL (0.0-1.1) Eosinophils # (Auto) 0.2 x10^3/uL (0.0-0.7) Basophils # (Auto) 0.1 x10^3/uL (0.0-0.2) Sodium Level 137 mmol/L (136-145) Potassium Level 3.4 mmol/L (3.5-5.1) Chloride Level 100 mmol/L (98-107) Carbon Dioxide Level 25 mmol/L (21-32) Anion Gap 12 (6-14) Blood Urea Nitrogen 16 mg/dL (7-20) Creatinine 0.8 mg/dL (0.6-1.0) Estimated GFR (Cockcroft-Gault) 73.2 BUN/Creatinine Ratio 20 (6-20) Glucose Level 159 mg/dL (70-99) Lactic Acid Level 2.5 mmol/L (0.4-2.0) Calcium Level 9.0 mg/dL (8.5-10.1) Total Bilirubin 0.3 mg/dL (0.2-1.0) Aspartate Amino Transf (AST/SGOT) 15 U/L (15-37) Alanine Aminotransferase (ALT/SGPT) 10 U/L (14-59) Alkaline Phosphatase 68 U/L (46-116) Troponin I Quantitative < 0.017 ng/mL (0.000-0.055) JY-Lvc-S-Type Natriuretic Peptide 82 pg/mL (0-124) Total Protein 6.8 g/dL (6.4-8.2) Albumin 2.7 g/dL (3.4-5.0) Albumin/Globulin Ratio 0.7 (1.0-1.7) VTE Prophylaxis Ordered VTE Prophylaxis Devices: Yes VTE Pharmacological Prophylaxi: Yes Assessment/Plan Assessment/Plan HCAP,. gram pos gram neg SNU resident UNDernourished, cachexia - BMI 17 LEukocytosis, 12, SEPSIS no organ dysfcn Elevated lactate 2,5 - recheck tmr, IVF COPD hx, smoker - stills smokes few cigars in snu HTN, controlled PSychosis hx - NOT confused on admission, cont olanzapine, iterax etc home med MAy eat 2 MN admit Consult pulmo FULL CODE PALLAVI BOND MD Dec 18, 2019 13:28
[2019-12-18] MEDS ORDERED: PIP/TAZO PER PHARMACY MC PRN (13:30)
[2019-12-18] MEDS: CLOTRIMAZOLE 1% TOPICAL CREAM 15GM TUBE. TP SCH ×2 (14:00→20:07)
[2019-12-18] MEDS ORDERED: VANCOMYCIN 1.25 GM in IV NORMAL SALINE 250ML 250 ML IV ONE (14:00)
[2019-12-18 14:43] VITALS: BP 92/46
[2019-12-18] MEDS: hydrOXYzine 25 MG TABLET PO PRN (15:21)
[2019-12-18] MEDS: BENZONATATE 100 MG CAPSULE. PO SCH ×2 (15:22→20:04)
[2019-12-18] MEDS: IPRATRPIUM/ALBUTEROL 0.5/2.5MG 3 ML NEBU. NEB SCH ×2 (16:00→20:00)
[2019-12-18] MEDS: VANCOMYCIN PER PHARMACY MC PRN (16:19)
--- NOTE | 2019-12-18 16:20 | NUR ---
Pharmacy Vancomycin Dosing Note S:Consulted to monitor and dose vancomycin started 12/18/19. O:LAVONNEJACUQELINE Alaniz is a 59 year old F with HCAP . Height: 5 feet, 4 inches Weight: 45.0 kg [place] Body Weight: 54.70 Adjusted Body Weight: 50.82 Dosing Weight: Actual Other Antibiotics: ZOSYN 12/18 - LABS: Last BUN: 16 Last Creatinine: 0.8 Creatinine Clearance: 53 mL/min Last WBC: 12 Last Procalcitonin: - Tmax (past 24 hours): 98.1 Microbiology: 12/18 PENDING I/O: Drug Levels: Last level: on at Last dose given 12/18/19 at 1430 Vancomycin Dosing: Loading Dose: 1250 mg x1 Dosing Weight: Actual Target Trough: 15-20 A: Based on: WEIGHT, CRCL~53, P: 1. INITIATE Vancomycin 750 mg IV q24h AFTER 1250 MG LOADING DOSE 2. Follow up Trough level on 12/20/19 at 1400 3. Pharmacy will continue to monitor, follow and adjust therapy as needed. LIAT LUNSFORD RPH, 12/18/19 [id number]
--- NOTE | 2019-12-18 16:47 | PDOC ---
PULMONARY PROGRESS NOTES Vitals Vital Signs Date Time Temp Pulse Resp B/P (MAP) Pulse Ox O2 Delivery O2 Flow Rate FiO2 12/18/19 15:31 94 Room Air 12/18/19 14:43 97.6 77 18 92/46 (61) 97.6 Lungs: Clear Cardiovascular: S1, S2 Skin: Warm Labs Laboratory Tests Test 12/18/19 10:16 12/18/19 10:47 12/18/19 14:10 White Blood Count 12.0 x10^3/uL (4.0-11.0) Red Blood Count 4.27 x10^6/uL (3.50-5.40) Hemoglobin 12.3 g/dL (12.0-15.5) Hematocrit 37.5 % (36.0-47.0) Mean Corpuscular Volume 88 fL (79-100) Mean Corpuscular Hemoglobin 29 pg (25-35) Mean Corpuscular Hemoglobin Concent 33 g/dL (31-37) Red Cell Distribution Width 14.2 % (11.5-14.5) Platelet Count 604 x10^3/uL (140-400) Neutrophils (%) (Auto) 69 % (31-73) Lymphocytes (%) (Auto) 20 % (24-48) Monocytes (%) (Auto) 9 % (0-9) Eosinophils (%) (Auto) 1 % (0-3) Basophils (%) (Auto) 1 % (0-3) Neutrophils # (Auto) 8.3 x10^3/uL (1.8-7.7) Lymphocytes # (Auto) 2.4 x10^3/uL (1.0-4.8) Monocytes # (Auto) 1.1 x10^3/uL (0.0-1.1) Eosinophils # (Auto) 0.2 x10^3/uL (0.0-0.7) Basophils # (Auto) 0.1 x10^3/uL (0.0-0.2) Sodium Level 137 mmol/L (136-145) Potassium Level 3.4 mmol/L (3.5-5.1) Chloride Level 100 mmol/L (98-107) Carbon Dioxide Level 25 mmol/L (21-32) Anion Gap 12 (6-14) Blood Urea Nitrogen 16 mg/dL (7-20) Creatinine 0.8 mg/dL (0.6-1.0) Estimated GFR (Cockcroft-Gault) 73.2 BUN/Creatinine Ratio 20 (6-20) Glucose Level 159 mg/dL (70-99) Lactic Acid Level 2.5 mmol/L (0.4-2.0) 1.5 mmol/L (0.4-2.0) Calcium Level 9.0 mg/dL (8.5-10.1) Total Bilirubin 0.3 mg/dL (0.2-1.0) Aspartate Amino Transf (AST/SGOT) 15 U/L (15-37) Alanine Aminotransferase (ALT/SGPT) 10 U/L (14-59) Alkaline Phosphatase 68 U/L (46-116) Troponin I Quantitative < 0.017 ng/mL (0.000-0.055) VQ-Qig-V-Type Natriuretic Peptide 82 pg/mL (0-124) Total Protein 6.8 g/dL (6.4-8.2) Albumin 2.7 g/dL (3.4-5.0) Albumin/Globulin Ratio 0.7 (1.0-1.7) Laboratory Tests Test 12/18/19 10:16 12/18/19 10:47 12/18/19 14:10 White Blood Count 12.0 x10^3/uL (4.0-11.0) Red Blood Count 4.27 x10^6/uL (3.50-5.40) Hemoglobin 12.3 g/dL (12.0-15.5) Hematocrit 37.5 % (36.0-47.0) Mean Corpuscular Volume 88 fL (79-100) Mean Corpuscular Hemoglobin 29 pg (25-35) Mean Corpuscular Hemoglobin Concent 33 g/dL (31-37) Red Cell Distribution Width 14.2 % (11.5-14.5) Platelet Count 604 x10^3/uL (140-400) Neutrophils (%) (Auto) 69 % (31-73) Lymphocytes (%) (Auto) 20 % (24-48) Monocytes (%) (Auto) 9 % (0-9) Eosinophils (%) (Auto) 1 % (0-3) Basophils (%) (Auto) 1 % (0-3) Neutrophils # (Auto) 8.3 x10^3/uL (1.8-7.7) Lymphocytes # (Auto) 2.4 x10^3/uL (1.0-4.8) Monocytes # (Auto) 1.1 x10^3/uL (0.0-1.1) Eosinophils # (Auto) 0.2 x10^3/uL (0.0-0.7) Basophils # (Auto) 0.1 x10^3/uL (0.0-0.2) Sodium Level 137 mmol/L (136-145) Potassium Level 3.4 mmol/L (3.5-5.1) Chloride Level 100 mmol/L (98-107) Carbon Dioxide Level 25 mmol/L (21-32) Anion Gap 12 (6-14) Blood Urea Nitrogen 16 mg/dL (7-20) Creatinine 0.8 mg/dL (0.6-1.0) Estimated GFR (Cockcroft-Gault) 73.2 BUN/Creatinine Ratio 20 (6-20) Glucose Level 159 mg/dL (70-99) Lactic Acid Level 2.5 mmol/L (0.4-2.0) 1.5 mmol/L (0.4-2.0) Calcium Level 9.0 mg/dL (8.5-10.1) Total Bilirubin 0.3 mg/dL (0.2-1.0) Aspartate Amino Transf (AST/SGOT) 15 U/L (15-37) Alanine Aminotransferase (ALT/SGPT) 10 U/L (14-59) Alkaline Phosphatase 68 U/L (46-116) Troponin I Quantitative < 0.017 ng/mL (0.000-0.055) KF-Yio-G-Type Natriuretic Peptide 82 pg/mL (0-124) Total Protein 6.8 g/dL (6.4-8.2) Albumin 2.7 g/dL (3.4-5.0) Albumin/Globulin Ratio 0.7 (1.0-1.7) Medications Active Scripts Medications Dose Route/Sig Max Daily Dose Days Date Category Dose Instructions Clotrimazole 15 Gm Cream..g. 1 Joaquín TP TID 09/04/18 Rx [place] 5-325 Tablet (Acetaminophen/Hydrocodone Bitart) 1 Each Tablet 1-2 Each PO PRN Q6HRS PRN 09/03/18 Rx as needed for pain Clindamycin Hcl 300 Mg Capsule 1 Cap PO TID 02/16/18 Rx Levaquin (Levofloxacin) 500 Mg Tablet 1 Tab PO DAILY 01/07/17 Rx Zofran Odt (Ondansetron) 4 Mg Tab.rapdis 1 Tab SL PRN Q8HRS PRN 12/28/16 Rx Hydroxyzine Hcl 25 Mg Tablet 1 Tab PO PRN BID PRN 12/28/16 Rx [Vancomycin Hcl] 250 MG/5 ML Solution 250 Mg PO QID 10 12/18/16 Rx Morphine Sulfate 30 Mg Tablet 1 Tab PO TID 12/14/16 Reported Ativan (Lorazepam) 0.5 Mg Tablet 0.5 Mg PO BID 12/03/16 Rx [place] 5-325 Tablet (Acetaminophen/Hydrocodone Bitart) 1 Each Tablet 1 Tab PO PRN Q6HRS PRN 12/03/16 Rx Zofran (Ondansetron Hcl) 4 Mg Tablet 1 Tab PO Q8HRS PRN 11/29/16 Rx Hydrocodone-Apap 10-325 (Hydrocodone Bit/Acetaminophen) 1 Each Tablet 1 Tab PO PRN Q6HRS PRN 10/13/16 Rx Quetiapine Fumarate 25 Mg Tablet 25 Mg PO QHS 10/13/16 Rx Levothyroxine Sodium 112 Mcg Tablet 112 Mcg PO DAILY07 10/13/16 Rx Impression . FULL NOTE DICTATED GRAM NEG/POS PNEUMONIA H/O FLU LAST TWO WEEKS AGREE WITH CURRENT RX\ ALYX CRUM MD Dec 18, 2019 16:47
[2019-12-18] MEDS: PIPERACILLIN/TAZOBACTAM 4.5 GM in IV NORMAL SALINE 100ML 100 ML IV SCH (17:44)
[2019-12-18 19:25] VITALS: BP 101/52
[2019-12-18] MEDS: LORazepam 0.5 MG TABLET PO SCH (20:04)
[2019-12-18] MEDS: HYDROcodone/APAP 5/325MG 1 TAB TABLET PO PRN (20:05)
[2019-12-18] MEDS: QUEtiapine 25 MG TABLET. PO SCH (20:05)
--- NOTE | 2019-12-18 22:07 | NUR ---
Report given to BRADLEY Roberts
[2019-12-18 23:22] VITALS: BP 105/51
[2019-12-19] MEDS: PIPERACILLIN/TAZOBACTAM 4.5 GM in IV NORMAL SALINE 100ML 100 ML IV SCH ×4 (00:37→18:05)
--- NOTE | 2019-12-19 03:19 | CONS ---
DATE OF CONSULTATION: 12/18/2019 ATTENDING PHYSICIAN: Dr. Prater. REASON FOR CONSULTATION: The patient is seen in pulmonary consultation at the request of Dr. Prater for abnormal chest x-ray, increasing shortness of air. HISTORY OF PRESENT ILLNESS: The patient is a 59-year-old female that has been sick now for well over 2 weeks. She presented at [facility], was diagnosed with flu and discharged home with supportive care. She presented she has a cough, mostly productive of discolored sputum. She does not think she has underlying COPD. She has been sick to her stomach. No chest pain or pressure. No hemoptysis. She is not up-to-date on her flu and pneumonia vaccinations. She had a chest x-ray, which revealed a left infrahilar infiltrate. The patient denies nausea, vomiting, or diarrhea. PAST MEDICAL HISTORY: Otherwise remarkable for hypertension, anxiety, psychosis, COPD, undiagnosed, tobacco dependence. PAST SURGICAL HISTORY: None. FAMILY HISTORY: No family history of lung disorders. SOCIAL HISTORY: She occasionally uses alcohol, less than 1 pack of cigarettes a day. ALLERGIES: ASPIRIN. REVIEW OF SYSTEMS: CONSTITUTIONAL: Subjective fever. EYES: No changes in visual acuity. HENT: No nasal congestion or sore throat. PULMONARY: As indicated above. CARDIOVASCULAR: No chest pain or pressure. GASTROINTESTINAL: No nausea, vomiting, or diarrhea. GENITOURINARY: No dysuria or frequency. MUSCULOSKELETAL: No localized muscle aches or joint pains. SKIN: No new skin rashes. NEUROLOGIC: No headaches, diplopia, or blurred vision. MEDICATIONS: List was reviewed. She has currently been treated with both vancomycin and Zosyn. PHYSICAL EXAMINATION: VITAL SIGNS: Stable, O2 saturation greater than 92%. HEENT: Eyes, the sclerae were nonicteric. NECK: Jugular venous distention was not elevated. No lymphadenopathy. CHEST: Full expansion. LUNGS: Coarse breath sounds with mild expiratory wheeze. CARDIOVASCULAR: Regular rate and rhythm with S1, S2, no S3. ABDOMEN: Soft, nontender, nondistended. EXTREMITIES: No clubbing, cyanosis or edema. NEUROLOGICAL: The patient is awake, alert, following commands. A detailed neuro exam was not performed. LABORATORY DATA: Labs were reviewed. White count was elevated. Hemoglobin and hematocrit were noted. Albumin was 2.7. Chest x-ray revealed right infrahilar infiltrate, large hiatal hernia. IMPRESSION: 1. Pneumonia in a patient who had flu several weeks ago, would recommend treatment for gram-positive and gram-negative pneumonia. 2. Acute exacerbation of chronic obstructive pulmonary disease. 3. Abnormal x-ray secondary to pneumonia. 4. Leukocytosis. 5. Tobacco dependence. 6. Psychosis. 7. Anxiety. PLAN: 1. I concur with current use of IV Zosyn and vancomycin. 2. Steroids. 3. Nebulized treatments. 4. Continue home meds. 5. We will taper off steroids as quickly as possible to avoid any further psychological decompensation. 6. The patient is instructed on the importance of discontinuing tobacco use, nicotine replacement will be offered prior to discharge. 7. A 6-minute walk prior to discharge. ALYX CRUM MD DR: JHONNY/lizy JOB#: [id number] / [id number]
[2019-12-19 03:45] VITALS: BP 104/65
[2019-12-19] MEDS: LEVOTHYROXINE 112 MCG TABLET PO SCH (05:37)
[2019-12-19 07:00] VITALS: BP 108/56
[2019-12-19] MEDS: IPRATRPIUM/ALBUTEROL 0.5/2.5MG 3 ML NEBU. NEB SCH ×4 (08:00→19:31)
[2019-12-19] MEDS: LORazepam 0.5 MG TABLET PO SCH ×2 (08:13→21:15)
[2019-12-19] MEDS: BENZONATATE 100 MG CAPSULE. PO SCH ×3 (08:13→21:15)
[2019-12-19 08:15] LABS: BASO # 0.1 x10^3/uL (0.0-0.2); BASO % 1 % (0-3); EOS # 0.1 x10^3/uL (0.0-0.7); EOS % 1 % (0-3); HEMATOCRIT 35.4 % (36.0-47.0); HEMOGLOBIN 11.4 g/dL (12.0-15.5); LYMPH # 2.1 x10^3/uL (1.0-4.8); LYMPH % 21 % (24-48); MEAN CORPUSCULAR HEMOGLOBIN 29 pg (25-35); MEAN CORPUSCULAR HGB CONC 32 g/dL (31-37); MEAN CORPUSCULAR VOLUME 89 fL (79-100); MONO # 0.8 x10^3/uL (0.0-1.1); MONO % 8 % (0-9); NEUT # 6.9 x10^3/uL (1.8-7.7); NEUT % 70 % (31-73); PLATELET COUNT 580 x10^3/uL (140-400); RED CELL DISTRIBUTION WIDTH 14.4 % (11.5-14.5); WHITE BLOOD COUNT 9.9 x10^3/uL (4.0-11.0)
--- NOTE | 2019-12-19 08:30 | PDOC ---
PULMONARY PROGRESS NOTES Subjective PT STILL SOA NO CHEST PAIN Vitals Vital Signs Date Time Temp Pulse Resp B/P (MAP) Pulse Ox O2 Delivery O2 Flow Rate FiO2 12/19/19 07:00 97.8 62 16 108/56 (73) 98 Room Air 97.8 Lungs: Clear Cardiovascular: S1, S2 Abdomen: Soft Neuro Exam: Alert Extremities: No Edema Skin: Warm Labs Laboratory Tests Test 12/18/19 10:16 12/18/19 10:47 12/18/19 14:10 12/19/19 06:33 White Blood Count 12.0 x10^3/uL (4.0-11.0) 9.9 x10^3/uL (4.0-11.0) Red Blood Count 4.27 x10^6/uL (3.50-5.40) 4.00 x10^6/uL (3.50-5.40) Hemoglobin 12.3 g/dL (12.0-15.5) 11.4 g/dL (12.0-15.5) Hematocrit 37.5 % (36.0-47.0) 35.4 % (36.0-47.0) Mean Corpuscular Volume 88 fL (79-100) 89 fL (79-100) Mean Corpuscular Hemoglobin 29 pg (25-35) 29 pg (25-35) Mean Corpuscular Hemoglobin Concent 33 g/dL (31-37) 32 g/dL (31-37) Red Cell Distribution Width 14.2 % (11.5-14.5) 14.4 % (11.5-14.5) Platelet Count 604 x10^3/uL (140-400) 580 x10^3/uL (140-400) Neutrophils (%) (Auto) 69 % (31-73) 70 % (31-73) Lymphocytes (%) (Auto) 20 % (24-48) 21 % (24-48) Monocytes (%) (Auto) 9 % (0-9) 8 % (0-9) Eosinophils (%) (Auto) 1 % (0-3) 1 % (0-3) Basophils (%) (Auto) 1 % (0-3) 1 % (0-3) Neutrophils # (Auto) 8.3 x10^3/uL (1.8-7.7) 6.9 x10^3/uL (1.8-7.7) Lymphocytes # (Auto) 2.4 x10^3/uL (1.0-4.8) 2.1 x10^3/uL (1.0-4.8) Monocytes # (Auto) 1.1 x10^3/uL (0.0-1.1) 0.8 x10^3/uL (0.0-1.1) Eosinophils # (Auto) 0.2 x10^3/uL (0.0-0.7) 0.1 x10^3/uL (0.0-0.7) Basophils # (Auto) 0.1 x10^3/uL (0.0-0.2) 0.1 x10^3/uL (0.0-0.2) Sodium Level 137 mmol/L (136-145) Potassium Level 3.4 mmol/L (3.5-5.1) Chloride Level 100 mmol/L (98-107) Carbon Dioxide Level 25 mmol/L (21-32) Anion Gap 12 (6-14) Blood Urea Nitrogen 16 mg/dL (7-20) Creatinine 0.8 mg/dL (0.6-1.0) Estimated GFR (Cockcroft-Gault) 73.2 BUN/Creatinine Ratio 20 (6-20) Glucose Level 159 mg/dL (70-99) Lactic Acid Level 2.5 mmol/L (0.4-2.0) 1.5 mmol/L (0.4-2.0) Calcium Level 9.0 mg/dL (8.5-10.1) Total Bilirubin 0.3 mg/dL (0.2-1.0) Aspartate Amino Transf (AST/SGOT) 15 U/L (15-37) Alanine Aminotransferase (ALT/SGPT) 10 U/L (14-59) Alkaline Phosphatase 68 U/L (46-116) Troponin I Quantitative < 0.017 ng/mL (0.000-0.055) TJ-Inf-I-Type Natriuretic Peptide 82 pg/mL (0-124) Total Protein 6.8 g/dL (6.4-8.2) Albumin 2.7 g/dL (3.4-5.0) Albumin/Globulin Ratio 0.7 (1.0-1.7) Laboratory Tests Test 12/18/19 10:16 12/18/19 10:47 12/18/19 14:10 12/19/19 06:33 White Blood Count 12.0 x10^3/uL (4.0-11.0) 9.9 x10^3/uL (4.0-11.0) Red Blood Count 4.27 x10^6/uL (3.50-5.40) 4.00 x10^6/uL (3.50-5.40) Hemoglobin 12.3 g/dL (12.0-15.5) 11.4 g/dL (12.0-15.5) Hematocrit 37.5 % (36.0-47.0) 35.4 % (36.0-47.0) Mean Corpuscular Volume 88 fL (79-100) 89 fL (79-100) Mean Corpuscular Hemoglobin 29 pg (25-35) 29 pg (25-35) Mean Corpuscular Hemoglobin Concent 33 g/dL (31-37) 32 g/dL (31-37) Red Cell Distribution Width 14.2 % (11.5-14.5) 14.4 % (11.5-14.5) Platelet Count 604 x10^3/uL (140-400) 580 x10^3/uL (140-400) Neutrophils (%) (Auto) 69 % (31-73) 70 % (31-73) Lymphocytes (%) (Auto) 20 % (24-48) 21 % (24-48) Monocytes (%) (Auto) 9 % (0-9) 8 % (0-9) Eosinophils (%) (Auto) 1 % (0-3) 1 % (0-3) Basophils (%) (Auto) 1 % (0-3) 1 % (0-3) Neutrophils # (Auto) 8.3 x10^3/uL (1.8-7.7) 6.9 x10^3/uL (1.8-7.7) Lymphocytes # (Auto) 2.4 x10^3/uL (1.0-4.8) 2.1 x10^3/uL (1.0-4.8) Monocytes # (Auto) 1.1 x10^3/uL (0.0-1.1) 0.8 x10^3/uL (0.0-1.1) Eosinophils # (Auto) 0.2 x10^3/uL (0.0-0.7) 0.1 x10^3/uL (0.0-0.7) Basophils # (Auto) 0.1 x10^3/uL (0.0-0.2) 0.1 x10^3/uL (0.0-0.2) Sodium Level 137 mmol/L (136-145) Potassium Level 3.4 mmol/L (3.5-5.1) Chloride Level 100 mmol/L (98-107) Carbon Dioxide Level 25 mmol/L (21-32) Anion Gap 12 (6-14) Blood Urea Nitrogen 16 mg/dL (7-20) Creatinine 0.8 mg/dL (0.6-1.0) Estimated GFR (Cockcroft-Gault) 73.2 BUN/Creatinine Ratio 20 (6-20) Glucose Level 159 mg/dL (70-99) Lactic Acid Level 2.5 mmol/L (0.4-2.0) 1.5 mmol/L (0.4-2.0) Calcium Level 9.0 mg/dL (8.5-10.1) Total Bilirubin 0.3 mg/dL (0.2-1.0) Aspartate Amino Transf (AST/SGOT) 15 U/L (15-37) Alanine Aminotransferase (ALT/SGPT) 10 U/L (14-59) Alkaline Phosphatase 68 U/L (46-116) Troponin I Quantitative < 0.017 ng/mL (0.000-0.055) CK-Uaf-N-Type Natriuretic Peptide 82 pg/mL (0-124) Total Protein 6.8 g/dL (6.4-8.2) Albumin 2.7 g/dL (3.4-5.0) Albumin/Globulin Ratio 0.7 (1.0-1.7) Medications Active Scripts Medications Dose Route/Sig Max Daily Dose Days Date Category Dose Instructions Clotrimazole 15 Gm Cream..g. 1 Joaquín TP TID 09/04/18 Rx [place] 5-325 Tablet (Acetaminophen/Hydrocodone Bitart) 1 Each Tablet 1-2 Each PO PRN Q6HRS PRN 09/03/18 Rx as needed for pain Clindamycin Hcl 300 Mg Capsule 1 Cap PO TID 02/16/18 Rx Levaquin (Levofloxacin) 500 Mg Tablet 1 Tab PO DAILY 01/07/17 Rx Zofran Odt (Ondansetron) 4 Mg Tab.rapdis 1 Tab SL PRN Q8HRS PRN 12/28/16 Rx Hydroxyzine Hcl 25 Mg Tablet 1 Tab PO PRN BID PRN 12/28/16 Rx [Vancomycin Hcl] 250 MG/5 ML Solution 250 Mg PO QID 10 12/18/16 Rx Morphine Sulfate 30 Mg Tablet 1 Tab PO TID 12/14/16 Reported Ativan (Lorazepam) 0.5 Mg Tablet 0.5 Mg PO BID 12/03/16 Rx [place] 5-325 Tablet (Acetaminophen/Hydrocodone Bitart) 1 Each Tablet 1 Tab PO PRN Q6HRS PRN 12/03/16 Rx Zofran (Ondansetron Hcl) 4 Mg Tablet 1 Tab PO Q8HRS PRN 11/29/16 Rx Hydrocodone-Apap 10-325 (Hydrocodone Bit/Acetaminophen) 1 Each Tablet 1 Tab PO PRN Q6HRS PRN 10/13/16 Rx Quetiapine Fumarate 25 Mg Tablet 25 Mg PO QHS 10/13/16 Rx Levothyroxine Sodium 112 Mcg Tablet 112 Mcg PO DAILY07 10/13/16 Rx Impression . 1. Pneumonia in a patient who had flu several weeks ago, would recommend treatment for gram-positive and gram-negative pneumonia. 2. Acute exacerbation of chronic obstructive pulmonary disease. 3. Abnormal x-ray secondary to pneumonia. 4. Leukocytosis. 5. Tobacco dependence. 6. Psychosis. 7. Anxiety. Plan . WILL CONTINUE SAME RX SEE BELOW ANTICIPATE DC IN 24-48 HOURS 1. I concur with current use of IV Zosyn and vancomycin. 2. Steroids. 3. Nebulized treatments. 4. Continue home meds. 5. We will taper off steroids as quickly as possible to avoid any further psychological decompensation. 6. The patient is instructed on the importance of discontinuing tobacco use, nicotine replacement will be offered prior to discharge. 7. A 6-minute walk prior to discharge. ALYX CRUM MD Dec 19, 2019 08:30
[2019-12-19 08:46] LABS: CALCIUM 8.5 mg/dL (8.5-10.1); CREATININE 0.8 mg/dL (0.6-1.0); GFR 73.2; POTASSIUM 4.5 mmol/L (3.5-5.1)
[2019-12-19] MEDS: CLOTRIMAZOLE 1% TOPICAL CREAM 15GM TUBE. TP SCH ×3 (09:00→21:00)
[2019-12-19] MEDS ORDERED: AZITHROMYCIN 250 MG TABLET. PO SCH (09:00)
[2019-12-19] MEDS ORDERED: cefTRIAXone IV Push 1 GM VIAL. IVP SCH (10:00)
[2019-12-19] MEDS: VANCOMYCIN PER PHARMACY MC PRN (10:17)
[2019-12-19 11:00] VITALS: BP 115/70
--- NOTE | 2019-12-19 11:42 | PDOC ---
PROGRESS NOTES Chief Complaint Chief Complaint HCAP,. gram pos gram neg [facility] resident UNDernourished, cachexia - BMI 17 LEukocytosis, 12, SEPSIS no organ dysfcn Elevated lactate 2,5 - on admit, resolved COPD hx, smoker - stills smokes few cigars in snu HTN, controlled PSychosis on olanzapine etc History of Present Illness History of Present Illness Asleep, ate 100% of her breakfast tray GEtting IV abx NO acute issues overnight ON zosyn PLAn: dc tele, ok to transfer Cont zosyn PT OT again today target home weekend back to snu Vitals Vitals Vital Signs Date Time Temp Pulse Resp B/P (MAP) Pulse Ox O2 Delivery O2 Flow Rate FiO2 12/19/19 11:00 98.1 82 18 115/70 (85) 94 Room Air 98.1 Physical Exam General: Alert, Oriented X3, Cooperative, No acute distress, Other (doubled up, feels cold) Lungs: Clear Abdomen: Normal bowel sounds, Soft Extremities: No clubbing, No cyanosis, No edema, Normal pulses, No tenderness/ swelling Skin: No rashes, No breakdown, No significant lesion Labs LABS Laboratory Tests Test 12/18/19 14:10 12/19/19 06:33 Lactic Acid Level 1.5 mmol/L (0.4-2.0) White Blood Count 9.9 x10^3/uL (4.0-11.0) Red Blood Count 4.00 x10^6/uL (3.50-5.40) Hemoglobin 11.4 g/dL (12.0-15.5) Hematocrit 35.4 % (36.0-47.0) Mean Corpuscular Volume 89 fL (79-100) Mean Corpuscular Hemoglobin 29 pg (25-35) Mean Corpuscular Hemoglobin Concent 32 g/dL (31-37) Red Cell Distribution Width 14.4 % (11.5-14.5) Platelet Count 580 x10^3/uL (140-400) Neutrophils (%) (Auto) 70 % (31-73) Lymphocytes (%) (Auto) 21 % (24-48) Monocytes (%) (Auto) 8 % (0-9) Eosinophils (%) (Auto) 1 % (0-3) Basophils (%) (Auto) 1 % (0-3) Neutrophils # (Auto) 6.9 x10^3/uL (1.8-7.7) Lymphocytes # (Auto) 2.1 x10^3/uL (1.0-4.8) Monocytes # (Auto) 0.8 x10^3/uL (0.0-1.1) Eosinophils # (Auto) 0.1 x10^3/uL (0.0-0.7) Basophils # (Auto) 0.1 x10^3/uL (0.0-0.2) Sodium Level 143 mmol/L (136-145) Potassium Level 4.5 mmol/L (3.5-5.1) Chloride Level 108 mmol/L (98-107) Carbon Dioxide Level 26 mmol/L (21-32) Anion Gap 9 (6-14) Blood Urea Nitrogen 17 mg/dL (7-20) Creatinine 0.8 mg/dL (0.6-1.0) Estimated GFR (Cockcroft-Gault) 73.2 Glucose Level 104 mg/dL (70-99) Calcium Level 8.5 mg/dL (8.5-10.1) Review of Systems Review of Systems asleep i did not awaken Assessment and Plan Assessmemt and Plan Problems Medical Problems: (1) Pneumonia Status: Acute Comment Review of Relevant I have reviewed the following items prince (where applicable) has been applied. Labs Laboratory Tests Test 12/18/19 10:16 12/18/19 10:47 12/18/19 14:10 12/19/19 06:33 White Blood Count 12.0 x10^3/uL (4.0-11.0) 9.9 x10^3/uL (4.0-11.0) Red Blood Count 4.27 x10^6/uL (3.50-5.40) 4.00 x10^6/uL (3.50-5.40) Hemoglobin 12.3 g/dL (12.0-15.5) 11.4 g/dL (12.0-15.5) Hematocrit 37.5 % (36.0-47.0) 35.4 % (36.0-47.0) Mean Corpuscular Volume 88 fL (79-100) 89 fL (79-100) Mean Corpuscular Hemoglobin 29 pg (25-35) 29 pg (25-35) Mean Corpuscular Hemoglobin Concent 33 g/dL (31-37) 32 g/dL (31-37) Red Cell Distribution Width 14.2 % (11.5-14.5) 14.4 % (11.5-14.5) Platelet Count 604 x10^3/uL (140-400) 580 x10^3/uL (140-400) Neutrophils (%) (Auto) 69 % (31-73) 70 % (31-73) Lymphocytes (%) (Auto) 20 % (24-48) 21 % (24-48) Monocytes (%) (Auto) 9 % (0-9) 8 % (0-9) Eosinophils (%) (Auto) 1 % (0-3) 1 % (0-3) Basophils (%) (Auto) 1 % (0-3) 1 % (0-3) Neutrophils # (Auto) 8.3 x10^3/uL (1.8-7.7) 6.9 x10^3/uL (1.8-7.7) Lymphocytes # (Auto) 2.4 x10^3/uL (1.0-4.8) 2.1 x10^3/uL (1.0-4.8) Monocytes # (Auto) 1.1 x10^3/uL (0.0-1.1) 0.8 x10^3/uL (0.0-1.1) Eosinophils # (Auto) 0.2 x10^3/uL (0.0-0.7) 0.1 x10^3/uL (0.0-0.7) Basophils # (Auto) 0.1 x10^3/uL (0.0-0.2) 0.1 x10^3/uL (0.0-0.2) Sodium Level 137 mmol/L (136-145) 143 mmol/L (136-145) Potassium Level 3.4 mmol/L (3.5-5.1) 4.5 mmol/L (3.5-5.1) Chloride Level 100 mmol/L (98-107) 108 mmol/L (98-107) Carbon Dioxide Level 25 mmol/L (21-32) 26 mmol/L (21-32) Anion Gap 12 (6-14) 9 (6-14) Blood Urea Nitrogen 16 mg/dL (7-20) 17 mg/dL (7-20) Creatinine 0.8 mg/dL (0.6-1.0) 0.8 mg/dL (0.6-1.0) Estimated GFR (Cockcroft-Gault) 73.2 73.2 BUN/Creatinine Ratio 20 (6-20) Glucose Level 159 mg/dL (70-99) 104 mg/dL (70-99) Lactic Acid Level 2.5 mmol/L (0.4-2.0) 1.5 mmol/L (0.4-2.0) Calcium Level 9.0 mg/dL (8.5-10.1) 8.5 mg/dL (8.5-10.1) Total Bilirubin 0.3 mg/dL (0.2-1.0) Aspartate Amino Transf (AST/SGOT) 15 U/L (15-37) Alanine Aminotransferase (ALT/SGPT) 10 U/L (14-59) Alkaline Phosphatase 68 U/L (46-116) Troponin I Quantitative < 0.017 ng/mL (0.000-0.055) OX-Fux-S-Type Natriuretic Peptide 82 pg/mL (0-124) Total Protein 6.8 g/dL (6.4-8.2) Albumin 2.7 g/dL (3.4-5.0) Albumin/Globulin Ratio 0.7 (1.0-1.7) Laboratory Tests Test 12/18/19 14:10 12/19/19 06:33 Lactic Acid Level 1.5 mmol/L (0.4-2.0) White Blood Count 9.9 x10^3/uL (4.0-11.0) Red Blood Count 4.00 x10^6/uL (3.50-5.40) Hemoglobin 11.4 g/dL (12.0-15.5) Hematocrit 35.4 % (36.0-47.0) Mean Corpuscular Volume 89 fL (79-100) Mean Corpuscular Hemoglobin 29 pg (25-35) Mean Corpuscular Hemoglobin Concent 32 g/dL (31-37) Red Cell Distribution Width 14.4 % (11.5-14.5) Platelet Count 580 x10^3/uL (140-400) Neutrophils (%) (Auto) 70 % (31-73) Lymphocytes (%) (Auto) 21 % (24-48) Monocytes (%) (Auto) 8 % (0-9) Eosinophils (%) (Auto) 1 % (0-3) Basophils (%) (Auto) 1 % (0-3) Neutrophils # (Auto) 6.9 x10^3/uL (1.8-7.7) Lymphocytes # (Auto) 2.1 x10^3/uL (1.0-4.8) Monocytes # (Auto) 0.8 x10^3/uL (0.0-1.1) Eosinophils # (Auto) 0.1 x10^3/uL (0.0-0.7) Basophils # (Auto) 0.1 x10^3/uL (0.0-0.2) Sodium Level 143 mmol/L (136-145) Potassium Level 4.5 mmol/L (3.5-5.1) Chloride Level 108 mmol/L (98-107) Carbon Dioxide Level 26 mmol/L (21-32) Anion Gap 9 (6-14) Blood Urea Nitrogen 17 mg/dL (7-20) Creatinine 0.8 mg/dL (0.6-1.0) Estimated GFR (Cockcroft-Gault) 73.2 Glucose Level 104 mg/dL (70-99) Calcium Level 8.5 mg/dL (8.5-10.1) Microbiology 12/18/19 Blood Culture - Preliminary, Resulted NO GROWTH AFTER 1 DAY Medications Current Medications Prednisone (Prednisone) 50 mg 1X ONCE PO Last administered on 12/18/19at 09:54; Start 12/18/19 at 09:30; Stop 12/18/19 at 09:31; Status DC Albuterol Sulfate (Ventolin Neb Soln) 2.5 mg 1X ONCE NEB Last administered on 12/18/19at 09:39; Start 12/18/19 at 10:00; Stop 12/18/19 at 10:01; Status DC Doxycycline Hyclate 100 mg/ Dextrose 100 ml @ 50 mls/hr 1X ONCE IV Last administered on 12/18/19at 10:32; Start 12/18/19 at 10:30; Stop 12/18/19 at 12:29; Status DC Ceftriaxone Sodium (Rocephin) 1 gm 1X ONCE IVP Last administered on 12/18/19at 10:27; Start 12/18/19 at 10:00; Stop 12/18/19 at 10:01; Status DC Ondansetron HCl (Zofran) 4 mg PRN Q8HRS PRN IV NAUSEA/VOMITING; Start 12/18/19 at 11:30; Stop 12/18/19 at 13:17; Status DC Fentanyl Citrate (Fentanyl 2ml Vial) 50 mcg PRN Q1HR PRN IV PAIN Last administered on 12/18/19at 15:31; Start 12/18/19 at 11:30; Stop 12/19/19 at 11:29; Status DC Acetaminophen (Tylenol) 650 mg PRN Q4HRS PRN PO FEVER; Start 12/18/19 at 11:30; Stop 12/18/19 at 13:17; Status DC Albuterol/ Ipratropium (Duoneb) 3 ml RTQID NEB ; Start 12/18/19 at 12:00; Stop 12/18/19 at 13:17; Status DC Sodium Chloride 1,000 ml @ 1,000 mls/hr 1X ONCE IV Last administered on at 11:58; Start 12/18/19 at 11:30; Stop 12/18/19 at 12:29; Status DC Sodium Chloride 1,000 ml @ 1,000 mls/hr 1X ONCE IV Last administered on 12/18/19at 14:22; Start 12/18/19 at 11:30; Stop 12/18/19 at 12:29; Status DC Albuterol/ Ipratropium (Duoneb) 3 ml RTQID NEB ; Start 12/18/19 at 16:00 Ondansetron HCl (Zofran) 4 mg PRN Q6HRS PRN IVP NAUSEA/VOMITING Last administered on 12/18/19at 15:24; Start 12/18/19 at 13:15 Acetaminophen (Tylenol) 500 mg PRN Q6HRS PRN PO MILD PAIN / TEMP; Start 12/18/19 at 13:15 Acetaminophen/ Codeine Phosphate (Tylenol #3) 1 tab PRN Q6HRS PRN PO MODERATE PAIN (1st Choice); Start 12/18/19 at 13:15 Benzonatate (Tessalon Perle) 100 mg [id number] PO Last administered on 12/19/19at 08:13; Start 12/18/19 at 14:00 Guaifenesin (Robitussin Dm) 10 ml PRN Q6HRS PRN PO COUGH Last administered on 12/18/19at 15:20; Start 12/18/19 at 13:15 Temazepam (Restoril) 7.5 mg PRN QHS PRN PO INSOMNIA; Start 12/18/19 at 13:15 Clonidine HCl (Catapres) 0.1 mg PRN Q1HR PRN PO HYPERTENSION; Start 12/18/19 at 13:15 Ceftriaxone Sodium (Rocephin) 1 gm Q24H IVP ; Start 12/19/19 at 10:00; Stop 12/18/19 at 13:22; Status DC Azithromycin (Zithromax) 500 mg 1X ONCE PO ; Start 12/18/19 at 13:15; Stop 12/18/19 at 13:22; Status DC Azithromycin (Zithromax) 250 mg DAILY PO ; Start 12/19/19 at 09:00; Stop 12/18/19 at 13:22; Status DC Clotrimazole (Lotrimin) 1 joaquín TID TP ; Start 12/18/19 at 14:00 Acetaminophen/ Hydrocodone Bitart (Lortab 5/325) 1 tab PRN Q6HRS PRN PO MODERATE PAIN (2nd Choice) Last administered on 12/18/19at 20:05; Start 12/18/19 at 13:15 Hydroxyzine HCl (Atarax) 25 mg PRN BID PRN PO ANXIETY / AGITATION Last administered on 12/18/19at 15:21; Start 12/18/19 at 13:15 Levothyroxine Sodium (Synthroid) 112 mcg DAILY06 PO Last administered on 12/19/19at 05:37; Start 12/19/19 at 06:00 Lorazepam (Ativan) 0.5 mg BID PO Last administered on 12/19/19at 08:13; Start 12/18/19 at 21:00 Ondansetron HCl (Zofran Odt) 4 mg PRN Q8HRS PRN PO NAUSEA; Start 12/18/19 at 13:15 Quetiapine Fumarate (SEROquel) 25 mg QHS PO Last administered on 12/18/19at 20:05; Start 12/18/19 at 21:00 Non-Formulary Medication (Ondansetron Hcl (Zofran)) 1 tab Q8HRS PRN PO NAUSEA; Start 12/18/19 at 13:15; Status UNV Potassium Chloride (Klor-Con) 40 meq 1X ONCE PO Last administered on 12/18/19at 15:22; Start 12/18/19 at 13:15; Stop 12/18/19 at 13:27; Status DC Vancomycin HCl (Vanco Per Pharmacy) 1 each PRN DAILY PRN MC SEE COMMENTS Last administered on 12/19/19at 10:17; Start 12/18/19 at 13:30 Piperacillin Sod/ Tazobactam Sod (Zosyn Per Pharmacy) 1 each PRN DAILY PRN MC SEE COMMENTS Last administered on 12/19/19at 10:15; Start 12/18/19 at 13:30 Nicotine (Nicoderm Cq 21mg) 1 patch PRN DAILY PRN TD SMOKING CESSATION; Start 12/18/19 at 13:30 Vancomycin HCl 1.25 gm/Sodium Chloride 250 ml @ 167 mls/hr ONCE ONCE IV Last administered on 12/18/19at 14:23; Start 12/18/19 at 14:00; Stop 12/18/19 at 15:29; Status DC Piperacillin Sod/ Tazobactam Sod 4.5 gm/Sodium Chloride 100 ml @ 200 mls/hr Q6HRS IV Last administered on 12/19/19at 05:37; Start 12/18/19 at 14:00 Vancomycin HCl 750 mg/Sodium Chloride 250 ml @ 250 mls/hr Q24H IV ; Start 12/19/19 at 14:30 Vancomycin HCl (Vancomycin Trough Level) 1 each 1X ONCE MC ; Start 12/20/19 at 14:00; Stop 12/20/19 at 14:01 Lactobacillus Rhamnosus (Culturelle) 1 cap BID PO ; Start 12/19/19 at 21:00 Active Scripts Active Clotrimazole 15 Gm Cream..g. 1 Joaquín TP TID [place] 5-325 Tablet (Acetaminophen/Hydrocodone Bitart) 1 Each Tablet 1-2 Each PO PRN Q6HRS PRN as needed for pain Clindamycin Hcl 300 Mg Capsule 1 Cap PO TID Levaquin (Levofloxacin) 500 Mg Tablet 1 Tab PO DAILY Zofran Odt (Ondansetron) 4 Mg Tab.rapdis 1 Tab SL PRN Q8HRS PRN Hydroxyzine Hcl 25 Mg Tablet 1 Tab PO PRN BID PRN [Vancomycin Hcl] 250 MG/5 ML Solution 250 Mg PO QID 10 Days Ativan (Lorazepam) 0.5 Mg Tablet 0.5 Mg PO BID [place] 5-325 Tablet (Acetaminophen/Hydrocodone Bitart) 1 Each Tablet 1 Tab PO PRN Q6HRS PRN Zofran (Ondansetron Hcl) 4 Mg Tablet 1 Tab PO Q8HRS PRN Hydrocodone-Apap 10-325 (Hydrocodone Bit/Acetaminophen) 1 Each Tablet 1 Tab PO PRN Q6HRS PRN Quetiapine Fumarate 25 Mg Tablet 25 Mg PO QHS Levothyroxine Sodium 112 Mcg Tablet 112 Mcg PO DAILY07 Reported Morphine Sulfate 30 Mg Tablet 1 Tab PO TID Vitals/I & O Vital Sign - Last 24 Hours 12/18/19 12/18/19 12/18/19 12/18/19 11:37 12:50 13:20 14:43 Temp 98.1 97.6 98.1 97.6 Pulse 74 75 77 Resp 18 18 18 B/P (MAP) 132/66 (88) 92/41 (58) 92/46 (61) Pulse Ox 97 94 94 O2 Delivery Room Air Room Air Room Air Room Air 12/18/19 12/18/19 12/18/19 12/18/19 15:31 17:44 19:25 20:00 Temp 98.5 98.5 Pulse 88 Resp 16 B/P (MAP) 101/52 (68) Pulse Ox 94 94 96 O2 Delivery Room Air Room Air Room Air Room Air 12/18/19 12/18/19 12/18/19 12/19/19 20:05 21:05 23:22 03:45 Temp 98.4 97.9 98.4 97.9 Pulse 77 65 Resp 18 16 16 16 B/P (MAP) 105/51 (69) 104/65 (78) Pulse Ox 94 96 97 O2 Delivery Room Air Room Air Room Air 12/19/19 12/19/19 12/19/19 07:00 08:00 11:00 Temp 97.8 98.1 97.8 98.1 Pulse 62 82 Resp 16 18 B/P (MAP) 108/56 (73) 115/70 (85) Pulse Ox 98 94 O2 Delivery Room Air Room Air Room Air Intake and Output 12/18/19 12/18/19 12/19/19 15:00 23:00 07:00 Intake Total 240 ml 720 ml Balance 240 ml 720 ml PALLAVI BOND MD Dec 19, 2019 11:41
[2019-12-19] MEDS: VANCOMYCIN 750 MG in IV NORMAL SALINE 250ML 250 ML IV SCH (14:02)
[2019-12-19 14:52] VITALS: BP 133/66
--- NOTE | 2019-12-19 15:14 | NUR ---
SS following for discharge planning. SS reviewed pt chart. Pt is from home and is currently on room air. SS met with pt to discuss discharge planning. Pt reported that she is from home and is going to return to home when she feels better. Pt reported that she will not go to a facility because she has a dog at home and she will not give up her dog. Pt reported that she has no phone. SS discussed home healthcare with pt and pt reported that she would think about it. SS will continue to follow for discharge planning.
[2019-12-19] MEDS: ACETAMINOPHEN/CODEINE 300/30MG TABLET. PO PRN (16:47)
[2019-12-19 19:00] VITALS: BP 105/58
--- NOTE | 2019-12-19 19:19 | NUR ---
Patient arrived to unit from [address] [place] [address] and immediately started calling out for pain medications and food and drinks. Her request were multiple and I spoke with patient's sister in law that handles her medication at home and she stated the only medication that patient takes at home is her Levothyroxine. Patient complaining about her pain at 10 out of 10, but when offered pain medication tells me that she can only take brand name medications not generic because generic medications don't work. I explained to her that all the medications will be given in generic form. I offered her a choice between the medications that Dr. Prater had ordered and she chose and took the Tylenol # 3 for pain. She also stated that the pain medication didn't work when asked in a timely manner if her pain score had changed. This information was passed to shift superintendent.
[2019-12-19] MEDS: NYSTATIN TOPICAL POWDER 15GM BOTTLE. TP SCH (21:00)
[2019-12-19] MEDS: QUEtiapine 25 MG TABLET. PO SCH (21:15)
[2019-12-19] MEDS: LACTOBACILLUS RHAMNOSUS GG 1 CAPSULE. PO SCH (21:15)
[2019-12-19 23:00] VITALS: BP 131/75
[2019-12-20] MEDS: PIPERACILLIN/TAZOBACTAM 4.5 GM in IV NORMAL SALINE 100ML 100 ML IV SCH ×5 (00:01→23:40)
[2019-12-20 03:00] VITALS: BP 128/75
[2019-12-20 03:51] LABS: INFLUENZA A PATIENT NEGATIVE (NEGATIVE); INFLUENZA B PATIENT NEGATIVE (NEGATIVE)
[2019-12-20] MEDS: LEVOTHYROXINE 112 MCG TABLET PO SCH (05:13)
[2019-12-20] MEDS: IPRATRPIUM/ALBUTEROL 0.5/2.5MG 3 ML NEBU. NEB SCH ×4 (07:17→20:00)
[2019-12-20 07:59] VITALS: BP 129/106
[2019-12-20] MEDS: BENZONATATE 100 MG CAPSULE. PO SCH ×3 (09:13→20:14)
[2019-12-20] MEDS: LACTOBACILLUS RHAMNOSUS GG 1 CAPSULE. PO SCH ×2 (09:13→20:14)
[2019-12-20] MEDS: LORazepam 0.5 MG TABLET PO SCH ×2 (09:13→20:28)
[2019-12-20] MEDS: NYSTATIN TOPICAL POWDER 15GM BOTTLE. TP SCH ×2 (09:18→20:23)
[2019-12-20] MEDS: CLOTRIMAZOLE 1% TOPICAL CREAM 15GM TUBE. TP SCH ×3 (09:18→20:23)
[2019-12-20] MEDS: ACETAMINOPHEN/CODEINE 300/30MG TABLET. PO PRN ×3 (09:19→21:49)
--- NOTE | 2019-12-20 10:49 | PDOC ---
PULMONARY PROGRESS NOTES Subjective reports she SOA is improved, having productive cough and abdominal pain today Vitals Vital Signs Date Time Temp Pulse Resp B/P (MAP) Pulse Ox O2 Delivery O2 Flow Rate FiO2 12/20/19 09:19 Nasal Cannula 2.0 12/20/19 07:59 97.5 84 22 129/106 (114) 99 97.5 ROS: No Nausea, No Chest Pain, No Increase Cough General: Alert, Oriented X4 Lungs: Other (course, Decresed in BL BS ) Cardiovascular: S1, S2 Abdomen: Soft Neuro Exam: Alert Extremities: No Edema Skin: Warm, Dry Labs Laboratory Tests Test 12/18/19 10:47 12/18/19 14:10 12/19/19 06:33 12/20/19 03:22 Sodium Level 137 mmol/L (136-145) 143 mmol/L (136-145) Potassium Level 3.4 mmol/L (3.5-5.1) 4.5 mmol/L (3.5-5.1) Chloride Level 100 mmol/L (98-107) 108 mmol/L (98-107) Carbon Dioxide Level 25 mmol/L (21-32) 26 mmol/L (21-32) Anion Gap 12 (6-14) 9 (6-14) Blood Urea Nitrogen 16 mg/dL (7-20) 17 mg/dL (7-20) Creatinine 0.8 mg/dL (0.6-1.0) 0.8 mg/dL (0.6-1.0) Estimated GFR (Cockcroft-Gault) 73.2 73.2 BUN/Creatinine Ratio 20 (6-20) Glucose Level 159 mg/dL (70-99) 104 mg/dL (70-99) Lactic Acid Level 2.5 mmol/L (0.4-2.0) 1.5 mmol/L (0.4-2.0) Calcium Level 9.0 mg/dL (8.5-10.1) 8.5 mg/dL (8.5-10.1) Total Bilirubin 0.3 mg/dL (0.2-1.0) Aspartate Amino Transf (AST/SGOT) 15 U/L (15-37) Alanine Aminotransferase (ALT/SGPT) 10 U/L (14-59) Alkaline Phosphatase 68 U/L (46-116) Troponin I Quantitative < 0.017 ng/mL (0.000-0.055) SA-Alw-V-Type Natriuretic Peptide 82 pg/mL (0-124) Total Protein 6.8 g/dL (6.4-8.2) Albumin 2.7 g/dL (3.4-5.0) Albumin/Globulin Ratio 0.7 (1.0-1.7) White Blood Count 9.9 x10^3/uL (4.0-11.0) Red Blood Count 4.00 x10^6/uL (3.50-5.40) Hemoglobin 11.4 g/dL (12.0-15.5) Hematocrit 35.4 % (36.0-47.0) Mean Corpuscular Volume 89 fL (79-100) Mean Corpuscular Hemoglobin 29 pg (25-35) Mean Corpuscular Hemoglobin Concent 32 g/dL (31-37) Red Cell Distribution Width 14.4 % (11.5-14.5) Platelet Count 580 x10^3/uL (140-400) Neutrophils (%) (Auto) 70 % (31-73) Lymphocytes (%) (Auto) 21 % (24-48) Monocytes (%) (Auto) 8 % (0-9) Eosinophils (%) (Auto) 1 % (0-3) Basophils (%) (Auto) 1 % (0-3) Neutrophils # (Auto) 6.9 x10^3/uL (1.8-7.7) Lymphocytes # (Auto) 2.1 x10^3/uL (1.0-4.8) Monocytes # (Auto) 0.8 x10^3/uL (0.0-1.1) Eosinophils # (Auto) 0.1 x10^3/uL (0.0-0.7) Basophils # (Auto) 0.1 x10^3/uL (0.0-0.2) Influenza Type A Antigen Negative (NEGATIVE) Influenza Type B Antigen Negative (NEGATIVE) Laboratory Tests Test 12/20/19 03:22 Influenza Type A Antigen Negative (NEGATIVE) Influenza Type B Antigen Negative (NEGATIVE) Medications Active Scripts Medications Dose Route/Sig Max Daily Dose Days Date Category Dose Instructions Clotrimazole 15 Gm Cream..g. 1 Joaquín TP TID 09/04/18 Rx [place] 5-325 Tablet (Acetaminophen/Hydrocodone Bitart) 1 Each Tablet 1-2 Each PO PRN Q6HRS PRN 09/03/18 Rx as needed for pain Clindamycin Hcl 300 Mg Capsule 1 Cap PO TID 02/16/18 Rx Levaquin (Levofloxacin) 500 Mg Tablet 1 Tab PO DAILY 01/07/17 Rx Zofran Odt (Ondansetron) 4 Mg Tab.rapdis 1 Tab SL PRN Q8HRS PRN 12/28/16 Rx Hydroxyzine Hcl 25 Mg Tablet 1 Tab PO PRN BID PRN 12/28/16 Rx [Vancomycin Hcl] 250 MG/5 ML Solution 250 Mg PO QID 10 12/18/16 Rx Morphine Sulfate 30 Mg Tablet 1 Tab PO TID 12/14/16 Reported Ativan (Lorazepam) 0.5 Mg Tablet 0.5 Mg PO BID 12/03/16 Rx [place] 5-325 Tablet (Acetaminophen/Hydrocodone Bitart) 1 Each Tablet 1 Tab PO PRN Q6HRS PRN 12/03/16 Rx Zofran (Ondansetron Hcl) 4 Mg Tablet 1 Tab PO Q8HRS PRN 11/29/16 Rx Hydrocodone-Apap 10-325 (Hydrocodone Bit/Acetaminophen) 1 Each Tablet 1 Tab PO PRN Q6HRS PRN 10/13/16 Rx Quetiapine Fumarate 25 Mg Tablet 25 Mg PO QHS 10/13/16 Rx Levothyroxine Sodium 112 Mcg Tablet 112 Mcg PO DAILY07 10/13/16 Rx Impression . 1. Pneumonia in a patient who had flu several weeks ago, would recommend treatment for gram-positive and gram-negative pneumonia. 2. Acute exacerbation of chronic obstructive pulmonary disease. 3. Abnormal x-ray secondary to pneumonia. 4. Leukocytosis. 5. Tobacco dependence. 6. Psychosis. 7. Anxiety. Plan . Supplemental oxygen cont. IV abx , culture NGTD NEBS/ IS at bedside influenza (-) cont. psyh medications abdominal pain per PCP D/W ALYX LANCASTER MD Dec 20, 2019 10:49
--- NOTE | 2019-12-20 10:59 | PDOC ---
PROGRESS NOTES Chief Complaint Chief Complaint impression HCAP,. gram pos gram neg SNU resident UNDernourished, cachexia - BMI 17 LEukocytosis, 12, SEPSIS no organ dysfcn Elevated lactate 2,5 - on admit, resolved COPD hx, smoker - stills smokes few cigars in snu HTN, controlled PSychosis on olanzapine etc 12/20 c/o abd discomfort , mild History of Present Illness History of Present Illness Asleep, ate 100% of her breakfast tray GEtting IV abx NO acute issues overnight ON zosyn PLAn: dc tele, ok to transfer Cont zosyn PT OT again today target home weekend back to snu Vitals Vitals Vital Signs Date Time Temp Pulse Resp B/P (MAP) Pulse Ox O2 Delivery O2 Flow Rate FiO2 12/20/19 09:19 Nasal Cannula 2.0 12/20/19 07:59 97.5 84 22 129/106 (114) 99 97.5 Physical Exam General: Alert, Oriented X3, Cooperative, No acute distress, Other (doubled up, feels cold) Heart: Regular rate Lungs: Other (course, Decresed in BL BS ) Abdomen: Normal bowel sounds, Soft Extremities: No clubbing, No cyanosis, No edema, Normal pulses, No tenderness/swelling Skin: No rashes, No breakdown, No significant lesion Labs LABS PATIENT: JACQUELINE BANERJEE ACCT: [id number] LOC: [address] [place] [address] U: [id number] AGE/SX: 59/F ROOM: 574 RE12/18/[address]: PALLAVI BOND MD : 1960 BED: 1 D IS: STATUS: ADM IN TLOC: SPEC #: [id number] ACIHA: 12/18/19-1015 STATUS: RES REMichelle #: [id number] RECD: 12/18/19-[address]: DAMIR DOUGLASS APRN SOURCE: BLOOD ENTR: 12/18/19-[address] [facility] [address]: GRETA,STAFF [facility]: NO PCP ORDERED: BCULT ---- -------- Procedure Result BLOOD CULTURE Preliminary NO GROWTH AFTER 2 DAYS EXAM: Chest, 2 views. HISTORY: Cough. COMPARISON: 01/07/2017 FINDINGS: 2 views of the chest are obtained. There is left greater than right infrahilar compressive atelectasis or infiltrate. There is a large hiatal hernia. There is eventration of the right hemidiaphragm or a right diaphragmatic hernia. There is no pneumothorax or pleural effusion. There are healed rib fractures. There is kyphosis of the thoracolumbar junction. IMPRESSION: 1. Left greater than right infrahilar atelectasis or interstitial infiltrate. 2. Large hiatal hernia. Electronically signed by: Danielle Gao MD (12/18/2019 9:39 AM) [facility] – [place] DICTATED and SIGNED BY: DANIELLE GAO MD DATE: 12/18/19 0939 Laboratory Tests Test 12/20/19 03:22 Influenza Type A Antigen Negative (NEGATIVE) Influenza Type B Antigen Negative (NEGATIVE) Assessment and Plan Assessmemt and Plan Problems Medical Problems: (1) Pneumonia Status: Acute Comment Review of Relevant I have reviewed the following items prince (where applicable) has been applied. Labs Laboratory Tests Test 12/18/19 14:10 12/19/19 06:33 12/20/19 03:22 Lactic Acid Level 1.5 mmol/L (0.4-2.0) White Blood Count 9.9 x10^3/uL (4.0-11.0) Red Blood Count 4.00 x10^6/uL (3.50-5.40) Hemoglobin 11.4 g/dL (12.0-15.5) Hematocrit 35.4 % (36.0-47.0) Mean Corpuscular Volume 89 fL (79-100) Mean Corpuscular Hemoglobin 29 pg (25-35) Mean Corpuscular Hemoglobin Concent 32 g/dL (31-37) Red Cell Distribution Width 14.4 % (11.5-14.5) Platelet Count 580 x10^3/uL (140-400) Neutrophils (%) (Auto) 70 % (31-73) Lymphocytes (%) (Auto) 21 % (24-48) Monocytes (%) (Auto) 8 % (0-9) Eosinophils (%) (Auto) 1 % (0-3) Basophils (%) (Auto) 1 % (0-3) Neutrophils # (Auto) 6.9 x10^3/uL (1.8-7.7) Lymphocytes # (Auto) 2.1 x10^3/uL (1.0-4.8) Monocytes # (Auto) 0.8 x10^3/uL (0.0-1.1) Eosinophils # (Auto) 0.1 x10^3/uL (0.0-0.7) Basophils # (Auto) 0.1 x10^3/uL (0.0-0.2) Sodium Level 143 mmol/L (136-145) Potassium Level 4.5 mmol/L (3.5-5.1) Chloride Level 108 mmol/L (98-107) Carbon Dioxide Level 26 mmol/L (21-32) Anion Gap 9 (6-14) Blood Urea Nitrogen 17 mg/dL (7-20) Creatinine 0.8 mg/dL (0.6-1.0) Estimated GFR (Cockcroft-Gault) 73.2 Glucose Level 104 mg/dL (70-99) Calcium Level 8.5 mg/dL (8.5-10.1) Influenza Type A Antigen Negative (NEGATIVE) Influenza Type B Antigen Negative (NEGATIVE) Laboratory Tests Test 12/20/19 03:22 Influenza Type A Antigen Negative (NEGATIVE) Influenza Type B Antigen Negative (NEGATIVE) Microbiology 12/18/19 Blood Culture - Preliminary, Resulted NO GROWTH AFTER 1 DAY Medications Current Medications Prednisone (Prednisone) 50 mg 1X ONCE PO Last administered on 12/18/19at 09:54; Start 12/18/19 at 09:30; Stop 12/18/19 at 09:31; Status DC Albuterol Sulfate (Ventolin Neb Soln) 2.5 mg 1X ONCE NEB Last administered on 12/18/19at 09:39; Start 12/18/19 at 10:00; Stop 12/18/19 at 10:01; Status DC Doxycycline Hyclate 100 mg/ Dextrose 100 ml @ 50 mls/hr 1X ONCE IV Last administered on 12/18/19at 10:32; Start 12/18/19 at 10:30; Stop 12/18/19 at 12:29; Status DC Ceftriaxone Sodium (Rocephin) 1 gm 1X ONCE IVP Last administered on 12/18/19at 10:27; Start 12/18/19 at 10:00; Stop 12/18/19 at 10:01; Status DC Ondansetron HCl (Zofran) 4 mg PRN Q8HRS PRN IV NAUSEA/VOMITING; Start 12/18/19 at 11:30; Stop 12/18/19 at 13:17; Status DC Fentanyl Citrate (Fentanyl 2ml Vial) 50 mcg PRN Q1HR PRN IV PAIN Last administered on 12/18/19at 15:31; Start 12/18/19 at 11:30; Stop 12/19/19 at 11:29; Status DC Acetaminophen (Tylenol) 650 mg PRN Q4HRS PRN PO FEVER; Start 12/18/19 at 11:30; Stop 12/18/19 at 13:17; Status DC Albuterol/ Ipratropium (Duoneb) 3 ml RTQID NEB ; Start 12/18/19 at 12:00; Stop 12/18/19 at 13:17; Status DC Sodium Chloride 1,000 ml @ 1,000 mls/hr 1X ONCE IV Last administered on 12/18/19at 11:58; Start 12/18/19 at 11:30; Stop 12/18/19 at 12:29; Status DC Sodium Chloride 1,000 ml @ 1,000 mls/hr 1X ONCE IV Last administered on 12/18/19at 14:22; Start 12/18/19 at 11:30; Stop 12/18/19 at 12:29; Status DC Albuterol/ Ipratropium (Duoneb) 3 ml RTQID NEB Last administered on 12/20/19at 07:17; Start 12/18/19 at 16:00 Ondansetron HCl (Zofran) 4 mg PRN Q6HRS PRN IVP NAUSEA/VOMITING Last administered on 12/18/19at 15:24; Start 12/18/19 at 13:15 Acetaminophen (Tylenol) 500 mg PRN Q6HRS PRN PO MILD PAIN / TEMP; Start 12/18/19 at 13:15 Acetaminophen/ Codeine Phosphate (Tylenol #3) 1 tab PRN Q6HRS PRN PO MODERATE PAIN (1st Choice) Last administered on 12/20/19at 09:19; Start 12/18/19 at 13:15 Benzonatate (Tessalon Perle) 100 mg [id number] PO Last administered on 12/20/19at 09:13; Start 12/18/19 at 14:00 Guaifenesin (Robitussin Dm) 10 ml PRN Q6HRS PRN PO COUGH Last administered on 12/18/19at 15:20; Start 12/18/19 at 13:15 Temazepam (Restoril) 7.5 mg PRN QHS PRN PO INSOMNIA; Start 12/18/19 at 13:15 Clonidine HCl (Catapres) 0.1 mg PRN Q1HR PRN PO HYPERTENSION; Start 12/18/19 at 13:15 Ceftriaxone Sodium (Rocephin) 1 gm Q24H IVP ; Start 12/19/19 at 10:00; Stop 12/18/19 at 13:22; Status DC Azithromycin (Zithromax) 500 mg 1X ONCE PO ; Start 12/18/19 at 13:15; Stop 12/18/19 at 13:22; Status DC Azithromycin (Zithromax) 250 mg DAILY PO ; Start 12/19/19 at 09:00; Stop 12/18/19 at 13:22; Status DC Clotrimazole (Lotrimin) 1 adelita TID TP Last administered on 12/20/19at 09:18; Start 12/18/19 at 14:00 Acetaminophen/ Hydrocodone Bitart (Lortab 5/325) 1 tab PRN Q6HRS PRN PO MODERATE PAIN (2nd Choice) Last administered on 12/18/19at 20:05; Start 12/18/19 at 13:15 Hydroxyzine HCl (Atarax) 25 mg PRN BID PRN PO ANXIETY / AGITATION Last administered on 12/18/19at 15:21; Start 12/18/19 at 13:15 Levothyroxine Sodium (Synthroid) 112 mcg DAILY06 PO Last administered on 12/20/19at 05:13; Start 12/19/19 at 06:00 Lorazepam (Ativan) 0.5 mg BID PO Last administered on 12/20/19at 09:13; Start 12/18/19 at 21:00 Ondansetron HCl (Zofran Odt) 4 mg PRN Q8HRS PRN PO NAUSEA; Start 12/18/19 at 13:15 Quetiapine Fumarate (SEROquel) 25 mg QHS PO Last administered on 12/19/19at 21:15; Start 12/18/19 at 21:00 Non-Formulary Medication (Ondansetron Hcl (Zofran)) 1 tab Q8HRS PRN PO NAUSEA; Start 12/18/19 at 13:15; Status UNV Potassium Chloride (Klor-Con) 40 meq 1X ONCE PO Last administered on 12/18/19at 15:22; Start 12/18/19 at 13:15; Stop 12/18/19 at 13:27; Status DC Vancomycin HCl (Vanco Per Pharmacy) 1 each PRN DAILY PRN MC SEE COMMENTS Last administered on 12/19/19at 10:17; Start 12/18/19 at 13:30 Piperacillin Sod/ Tazobactam Sod (Zosyn Per Pharmacy) 1 each PRN DAILY PRN MC SEE COMMENTS Last administered on 12/19/19at 10:15; Start 12/18/19 at 13:30 Nicotine (Nicoderm Cq 21mg) 1 patch PRN DAILY PRN TD SMOKING CESSATION; Start 12/18/19 at 13:30 Vancomycin HCl 1.25 gm/Sodium Chloride 250 ml @ 167 mls/hr ONCE ONCE IV Last administered on 12/18/19at 14:23; Start 12/18/19 at 14:00; Stop 12/18/19 at 15:29; Status DC Piperacillin Sod/ Tazobactam Sod 4.5 gm/Sodium Chloride 100 ml @ 200 mls/hr Q6HRS IV Last administered on 12/20/19at 05:11; Start 12/18/19 at 14:00 Vancomycin HCl 750 mg/Sodium Chloride 250 ml @ 250 mls/hr Q24H IV Last administered on 12/19/19at 14:02; Start 12/19/19 at 14:30 Vancomycin HCl (Vancomycin Trough Level) 1 each 1X ONCE MC ; Start 12/20/19 at 14:00; Stop 12/20/19 at 14:01 Lactobacillus Rhamnosus (Culturelle) 1 cap BID PO Last administered on 12/20/19at 09:13; Start 12/19/19 at 21:00 Nystatin (Nystop) 1 adelita BID TP Last administered on 12/20/19at 09:18; Start 12/19/19 at 21:00 Active Scripts Active Clotrimazole 15 Gm Cream..g. 1 Adelita TP TID [place] 5-325 Tablet (Acetaminophen/Hydrocodone Bitart) 1 Each Tablet 1-2 Each PO PRN Q6HRS PRN as needed for pain Clindamycin Hcl 300 Mg Capsule 1 Cap PO TID Levaquin (Levofloxacin) 500 Mg Tablet 1 Tab PO DAILY Zofran Odt (Ondansetron) 4 Mg Tab.rapdis 1 Tab SL PRN Q8HRS PRN Hydroxyzine Hcl 25 Mg Tablet 1 Tab PO PRN BID PRN [Vancomycin Hcl] 250 MG/5 ML Solution 250 Mg PO QID 10 Days Ativan (Lorazepam) 0.5 Mg Tablet 0.5 Mg PO BID [place] 5-325 Tablet (Acetaminophen/Hydrocodone Bitart) 1 Each Tablet 1 Tab PO PRN Q6HRS PRN Zofran (Ondansetron Hcl) 4 Mg Tablet 1 Tab PO Q8HRS PRN Hydrocodone-Apap 10-325 (Hydrocodone Bit/Acetaminophen) 1 Each Tablet 1 Tab PO PRN Q6HRS PRN Quetiapine Fumarate 25 Mg Tablet 25 Mg PO QHS Levothyroxine Sodium 112 Mcg Tablet 112 Mcg PO DAILY07 Reported Morphine Sulfate 30 Mg Tablet 1 Tab PO TID Vitals/I & O Vital Sign - Last 24 Hours 12/19/19 12/19/19 12/19/19 12/19/19 11:00 14:52 16:47 18:05 Temp 98.1 99.0 98.1 99.0 Pulse 82 90 Resp 18 18 B/P (MAP) 115/70 (85) 133/66 (88) Pulse Ox 94 94 O2 Delivery Room Air Nasal Cannula Nasal Cannula Nasal Cannula O2 Flow Rate 1.0 2.0 2.0 12/19/19 12/19/19 12/19/19 12/20/19 19:00 20:00 23:00 03:00 Temp 99.0 98.5 97.5 99.0 98.5 97.5 Pulse 90 93 82 Resp 20 18 18 B/P (MAP) 105/58 (74) 131/75 (93) 128/75 (92) Pulse Ox 98 97 97 O2 Delivery Nasal Cannula Room Air Nasal Cannula Nasal Cannula O2 Flow Rate 1.0 2.0 1.0 1.0 12/20/19 12/20/19 12/20/19 07:17 07:59 09:19 Temp 97.5 97.5 Pulse 84 Resp 22 B/P (MAP) 129/106 (114) Pulse Ox 97 99 O2 Delivery Room Air Nasal Cannula Nasal Cannula O2 Flow Rate 1.0 2.0 Intake and Output 12/19/19 12/19/19 12/20/19 15:00 23:00 07:00 Intake Total 960 ml 300 ml 480 ml Output Total 1400 ml Balance -440 ml 300 ml 480 ml CHINA VIVEROS MD Dec 20, 2019 10:59
[2019-12-20 11:26] LABS: BASO # 0.1 x10^3/uL (0.0-0.2); BASO % 1 % (0-3); EOS # 0.2 x10^3/uL (0.0-0.7); EOS % 2 % (0-3); HEMATOCRIT 36.5 % (36.0-47.0); HEMOGLOBIN 11.9 g/dL (12.0-15.5); LYMPH # 2.2 x10^3/uL (1.0-4.8); LYMPH % 19 % (24-48); MEAN CORPUSCULAR HEMOGLOBIN 29 pg (25-35); MEAN CORPUSCULAR HGB CONC 33 g/dL (31-37); MEAN CORPUSCULAR VOLUME 88 fL (79-100); MONO % 9 % (0-9); NEUT # 7.8 x10^3/uL (1.8-7.7); NEUT % 70 % (31-73); PLATELET COUNT 558 x10^3/uL (140-400); RED BLOOD COUNT 4.16 x10^6/uL (3.50-5.40); RED CELL DISTRIBUTION WIDTH 14.2 % (11.5-14.5); WHITE BLOOD COUNT 11.2 x10^3/uL (4.0-11.0)
[2019-12-20 11:59] VITALS: BP 119/67
[2019-12-20] MEDS: NICOTINE 21MG PATCH. TD PRN (15:25)
[2019-12-20 15:59] VITALS: BP 120/60
[2019-12-20] MEDS: VANCOMYCIN 750 MG in IV NORMAL SALINE 250ML 250 ML IV SCH (16:31)
[2019-12-20 16:43] LABS: VANC TR 1.8 mcg/mL (10.0-20.0)
[2019-12-20] MEDS: VANCOMYCIN PER PHARMACY MC PRN (17:01)
--- NOTE | 2019-12-20 17:01 | NUR ---
Pharmacy Vancomycin Dosing Note S: Consulted to monitor and dose vancomycin started 12/18/19. O: JACQUELINE BANERJEE is a 59 year old F with HCAP. Other Antibiotics: ZOSYN 12/18 - LABS: Last BUN: 17 Last Creatinine: 0.8 Creatinine Clearance: 53 mL/min Last WBC: 11.2 Last Procalcitonin: - Tmax (past 24 hours): 97.9 Microbiology: 12/18 PENDING Drug Levels: Last Trough level: 1.8 on 12/20/19 at 1600 Last dose given 12/20/19 at 1631 Vancomycin Dosing: Dosing Weight: Actual Target Trough: 15-20 A: Based on: 12/20 SUSPICIOUS TROUGH, WILL INCREASE REGIMEN TO Q12HRS AND RECHECK 12/21 P: 1. Change Vancomycin 750 mg IV q12h 2. Follow up Trough level on 12/21/19 at 1530 3. Pharmacy will continue to monitor, follow and adjust therapy as needed. JAMI KIM [facility], 12/20/19 0668
[2019-12-20 18:19] LABS: CREATININE 0.8 mg/dL (0.6-1.0); GFR 73.2
[2019-12-20 19:00] VITALS: BP 132/79
[2019-12-20] MEDS: hydrOXYzine 25 MG TABLET PO PRN (19:46)
[2019-12-20] MEDS: HYDROcodone/APAP 5/325MG 1 TAB TABLET PO PRN (19:46)
[2019-12-20] MEDS: QUEtiapine 25 MG TABLET. PO SCH (20:15)
[2019-12-20] MEDS: TEMAZEPAM 7.5 MG CAPSULE PO PRN (20:15)
[2019-12-20 22:57] VITALS: BP 130/69
[2019-12-21 03:00] VITALS: BP 130/69
[2019-12-21] MEDS ORDERED: VANCOMYCIN 750 MG in IV NORMAL SALINE 250ML 250 ML IV SCH (04:00)
[2019-12-21] MEDS: HYDROcodone/APAP 5/325MG 1 TAB TABLET PO PRN (04:05)
[2019-12-21] MEDS: PIPERACILLIN/TAZOBACTAM 4.5 GM in IV NORMAL SALINE 100ML 100 ML IV SCH ×4 (05:14→23:59)
[2019-12-21] MEDS: LEVOTHYROXINE 112 MCG TABLET PO SCH (05:14)
[2019-12-21 07:33] LABS: BASO # 0.1 x10^3/uL (0.0-0.2); BASO % 1 % (0-3); EOS # 0.3 x10^3/uL (0.0-0.7); EOS % 3 % (0-3); HEMATOCRIT 35.1 % (36.0-47.0); HEMOGLOBIN 11.4 g/dL (12.0-15.5); LYMPH # 2.4 x10^3/uL (1.0-4.8); LYMPH % 27 % (24-48); MEAN CORPUSCULAR HEMOGLOBIN 29 pg (25-35); MEAN CORPUSCULAR HGB CONC 33 g/dL (31-37); MEAN CORPUSCULAR VOLUME 89 fL (79-100); MONO # 0.7 x10^3/uL (0.0-1.1); MONO % 8 % (0-9); NEUT # 5.3 x10^3/uL (1.8-7.7); NEUT % 61 % (31-73); PLATELET COUNT 557 x10^3/uL (140-400); RED BLOOD COUNT 3.96 x10^6/uL (3.50-5.40); RED CELL DISTRIBUTION WIDTH 14.3 % (11.5-14.5); WHITE BLOOD COUNT 8.7 x10^3/uL (4.0-11.0)
[2019-12-21 07:47] LABS: CREATININE 0.9 mg/dL (0.6-1.0); GFR 63.9
[2019-12-21 07:59] VITALS: BP 119/68
[2019-12-21] MEDS: IPRATRPIUM/ALBUTEROL 0.5/2.5MG 3 ML NEBU. NEB SCH ×4 (08:00→19:23)
[2019-12-21] MEDS: BENZONATATE 100 MG CAPSULE. PO SCH ×3 (09:03→21:41)
[2019-12-21] MEDS: LORazepam 0.5 MG TABLET PO SCH ×3 (09:03→21:41)
[2019-12-21] MEDS: LACTOBACILLUS RHAMNOSUS GG 1 CAPSULE. PO SCH ×2 (09:03→21:41)
[2019-12-21] MEDS: NYSTATIN TOPICAL POWDER 15GM BOTTLE. TP SCH ×2 (09:05→23:23)
[2019-12-21] MEDS: CLOTRIMAZOLE 1% TOPICAL CREAM 15GM TUBE. TP SCH ×3 (09:05→21:00)
[2019-12-21] MEDS: ACETAMINOPHEN/CODEINE 300/30MG TABLET. PO PRN ×2 (09:06→17:37)
--- NOTE | 2019-12-21 09:24 | PDOC ---
PULMONARY PROGRESS NOTES Subjective remains on N/C, complains on increase work of breathing, however has been refusing nebs also complaining on BUE numbness Vitals Vital Signs Date Time Temp Pulse Resp B/P (MAP) Pulse Ox O2 Delivery O2 Flow Rate FiO2 12/21/19 09:06 Nasal Cannula 2.0 12/21/19 07:59 97.9 69 18 119/68 (85) 99 97.9 ROS: No Nausea, No Chest Pain, No Increase Cough General: Alert, Oriented X4 Lungs: Wheezing, Other (Decresed in BL BS ) Cardiovascular: S1, S2 Abdomen: Soft, Non-tender Neuro Exam: Alert Extremities: No Edema Skin: Warm, Dry Labs Laboratory Tests Test 12/20/19 03:22 12/20/19 11:00 12/20/19 14:30 12/21/19 05:55 Influenza Type A Antigen Negative (NEGATIVE) Influenza Type B Antigen Negative (NEGATIVE) White Blood Count 11.2 x10^3/uL (4.0-11.0) 8.7 x10^3/uL (4.0-11.0) Red Blood Count 4.16 x10^6/uL (3.50-5.40) 3.96 x10^6/uL (3.50-5.40) Hemoglobin 11.9 g/dL (12.0-15.5) 11.4 g/dL (12.0-15.5) Hematocrit 36.5 % (36.0-47.0) 35.1 % (36.0-47.0) Mean Corpuscular Volume 88 fL (79-100) 89 fL (79-100) Mean Corpuscular Hemoglobin 29 pg (25-35) 29 pg (25-35) Mean Corpuscular Hemoglobin Concent 33 g/dL (31-37) 33 g/dL (31-37) Red Cell Distribution Width 14.2 % (11.5-14.5) 14.3 % (11.5-14.5) Platelet Count 558 x10^3/uL (140-400) 557 x10^3/uL (140-400) Neutrophils (%) (Auto) 70 % (31-73) 61 % (31-73) Lymphocytes (%) (Auto) 19 % (24-48) 27 % (24-48) Monocytes (%) (Auto) 9 % (0-9) 8 % (0-9) Eosinophils (%) (Auto) 2 % (0-3) 3 % (0-3) Basophils (%) (Auto) 1 % (0-3) 1 % (0-3) Neutrophils # (Auto) 7.8 x10^3/uL (1.8-7.7) 5.3 x10^3/uL (1.8-7.7) Lymphocytes # (Auto) 2.2 x10^3/uL (1.0-4.8) 2.4 x10^3/uL (1.0-4.8) Monocytes # (Auto) 1.0 x10^3/uL (0.0-1.1) 0.7 x10^3/uL (0.0-1.1) Eosinophils # (Auto) 0.2 x10^3/uL (0.0-0.7) 0.3 x10^3/uL (0.0-0.7) Basophils # (Auto) 0.1 x10^3/uL (0.0-0.2) 0.1 x10^3/uL (0.0-0.2) Erythrocyte Sedimentation Rate 43 (0-25) Creatinine 0.8 mg/dL (0.6-1.0) 0.9 mg/dL (0.6-1.0) Estimated GFR (Cockcroft-Gault) 73.2 63.9 Vancomycin Level Trough 1.8 mcg/mL (10.0-20.0) Vancomycin Last Dose Date 12/19/19 Vancomycin Last Dose Time 1430 Laboratory Tests Test 12/20/19 11:00 12/20/19 14:30 12/21/19 05:55 White Blood Count 11.2 x10^3/uL (4.0-11.0) 8.7 x10^3/uL (4.0-11.0) Red Blood Count 4.16 x10^6/uL (3.50-5.40) 3.96 x10^6/uL (3.50-5.40) Hemoglobin 11.9 g/dL (12.0-15.5) 11.4 g/dL (12.0-15.5) Hematocrit 36.5 % (36.0-47.0) 35.1 % (36.0-47.0) Mean Corpuscular Volume 88 fL (79-100) 89 fL (79-100) Mean Corpuscular Hemoglobin 29 pg (25-35) 29 pg (25-35) Mean Corpuscular Hemoglobin Concent 33 g/dL (31-37) 33 g/dL (31-37) Red Cell Distribution Width 14.2 % (11.5-14.5) 14.3 % (11.5-14.5) Platelet Count 558 x10^3/uL (140-400) 557 x10^3/uL (140-400) Neutrophils (%) (Auto) 70 % (31-73) 61 % (31-73) Lymphocytes (%) (Auto) 19 % (24-48) 27 % (24-48) Monocytes (%) (Auto) 9 % (0-9) 8 % (0-9) Eosinophils (%) (Auto) 2 % (0-3) 3 % (0-3) Basophils (%) (Auto) 1 % (0-3) 1 % (0-3) Neutrophils # (Auto) 7.8 x10^3/uL (1.8-7.7) 5.3 x10^3/uL (1.8-7.7) Lymphocytes # (Auto) 2.2 x10^3/uL (1.0-4.8) 2.4 x10^3/uL (1.0-4.8) Monocytes # (Auto) 1.0 x10^3/uL (0.0-1.1) 0.7 x10^3/uL (0.0-1.1) Eosinophils # (Auto) 0.2 x10^3/uL (0.0-0.7) 0.3 x10^3/uL (0.0-0.7) Basophils # (Auto) 0.1 x10^3/uL (0.0-0.2) 0.1 x10^3/uL (0.0-0.2) Erythrocyte Sedimentation Rate 43 (0-25) Creatinine 0.8 mg/dL (0.6-1.0) 0.9 mg/dL (0.6-1.0) Estimated GFR (Cockcroft-Gault) 73.2 63.9 Vancomycin Level Trough 1.8 mcg/mL (10.0-20.0) Vancomycin Last Dose Date 12/19/19 Vancomycin Last Dose Time 1430 Medications Active Scripts Medications Dose Route/Sig Max Daily Dose Days Date Category Dose Instructions Clotrimazole 15 Gm Cream..g. 1 Joaquín TP TID 09/04/18 Rx [place] 5-325 Tablet (Acetaminophen/Hydrocodone Bitart) 1 Each Tablet 1-2 Each PO PRN Q6HRS PRN 09/03/18 Rx as needed for pain Clindamycin Hcl 300 Mg Capsule 1 Cap PO TID 02/16/18 Rx Levaquin (Levofloxacin) 500 Mg Tablet 1 Tab PO DAILY 01/07/17 Rx Zofran Odt (Ondansetron) 4 Mg Tab.rapdis 1 Tab SL PRN Q8HRS PRN 12/28/16 Rx Hydroxyzine Hcl 25 Mg Tablet 1 Tab PO PRN BID PRN 12/28/16 Rx [Vancomycin Hcl] 250 MG/5 ML Solution 250 Mg PO QID 10 12/18/16 Rx Morphine Sulfate 30 Mg Tablet 1 Tab PO TID 12/14/16 Reported Ativan (Lorazepam) 0.5 Mg Tablet 0.5 Mg PO BID 12/03/16 Rx [place] 5-325 Tablet (Acetaminophen/Hydrocodone Bitart) 1 Each Tablet 1 Tab PO PRN Q6HRS PRN 12/03/16 Rx Zofran (Ondansetron Hcl) 4 Mg Tablet 1 Tab PO Q8HRS PRN 11/29/16 Rx Hydrocodone-Apap 10-325 (Hydrocodone Bit/Acetaminophen) 1 Each Tablet 1 Tab PO PRN Q6HRS PRN 10/13/16 Rx Quetiapine Fumarate 25 Mg Tablet 25 Mg PO QHS 10/13/16 Rx Levothyroxine Sodium 112 Mcg Tablet 112 Mcg PO DAILY07 10/13/16 Rx Impression . 1. Pneumonia in a patient who had flu several weeks ago, would recommend treatment for gram-positive and gram-negative pneumonia. 2. Acute exacerbation of chronic obstructive pulmonary disease. 3. Abnormal x-ray secondary to pneumonia. 4. Leukocytosis-resolved 5. Tobacco dependence. 6. Psychosis. 7. Anxiety. 8. Upper extremity numbness Plan . Supplemental oxygen cont. IV abx , culture NGTD NEBS/ IS at bedside-- educated on the importance of use influenza (-) cont. psyh medications abdominal pain per PCP--- resolved today BLE numbness per PCP D/W ALYX LANCASTER MD Dec 21, 2019 09:24
--- NOTE | 2019-12-21 11:06 | PDOC ---
PROGRESS NOTES Chief Complaint Chief Complaint impression HCAP,. gram pos gram neg [facility]U resident GENERALIZED WEAKNESS UNDernourished, cachexia - BMI 17 LEukocytosis, 12, SEPSIS no organ dysfcn Elevated lactate 2,5 - on admit, resolved COPD hx, smoker - stills smokes few cigars in snu HTN, controlled PSychosis on olanzapine etc 2/2 c/o abd discomfort , mild, SLOW TO RESOLVE Discharge Recommendations * [facility]irement Unit History of Present Illness History of Present Illness NAD 100% of her breakfast tray GEtting IV abx NO acute issues overnight ON zosyn PLAn: Cont zosyn PT OT CXR TODAY PA/LAT Vitals Vitals Vital Signs Date Time Temp Pulse Resp B/P (MAP) Pulse Ox O2 Delivery O2 Flow Rate FiO2 12/21/19 09:06 Nasal Cannula 2.0 12/21/19 07:59 97.9 69 18 119/68 (85) 99 97.9 Physical Exam General: Alert, Oriented X3, Cooperative, No acute distress, Other (doubled up, feels cold) Heart: Regular rate, Normal S1 Lungs: Wheezing, Other (Decresed in BL BS ) Abdomen: Normal bowel sounds, Soft Extremities: No clubbing, No cyanosis, No edema, Normal pulses, No tenderness/swelling Skin: No rashes, No breakdown, No significant lesion Labs LABS EXAM: Chest, 2 views. HISTORY: Cough. COMPARISON: 01/07/2017 FINDINGS: 2 views of the chest are obtained. There is left greater than right infrahilar compressive atelectasis or infiltrate. There is a large hiatal hernia. There is eventration of the right hemidiaphragm or a right diaphragmatic hernia. There is no pneumothorax or pleural effusion. There are healed rib fractures. There is kyphosis of the thoracolumbar junction. IMPRESSION: 1. Left greater than right infrahilar atelectasis or interstitial infiltrate. 2. Large hiatal hernia. Electronically signed by: Danielle Royal MD (12/18/2019 9:39 AM) [facility] [place] SPEC #: [id number] AICHA: 12/18/19-1016 STATUS: RES REQ #: [id number] RECD: 12/18/19-[address] [facility] [address]: DAMIR DOUGLASS APRN SOURCE: BLOOD ENTR: 12/18/19-[address] [facility] [address]: GRETA,STAFF [facility]: NO PCP ORDERED: BCULT Procedure Result BLOOD CULTURE Preliminary NO GROWTH AFTER 3 DAYS -- Laboratory Tests Test 12/20/19 14:30 12/21/19 05:55 Creatinine 0.8 mg/dL (0.6-1.0) 0.9 mg/dL (0.6-1.0) Estimated GFR (Cockcroft-Gault) 73.2 63.9 Vancomycin Level Trough 1.8 mcg/mL (10.0-20.0) Vancomycin Last Dose Date 12/19/19 Vancomycin Last Dose Time 1430 White Blood Count 8.7 x10^3/uL (4.0-11.0) Red Blood Count 3.96 x10^6/uL (3.50-5.40) Hemoglobin 11.4 g/dL (12.0-15.5) Hematocrit 35.1 % (36.0-47.0) Mean Corpuscular Volume 89 fL (79-100) Mean Corpuscular Hemoglobin 29 pg (25-35) Mean Corpuscular Hemoglobin Concent 33 g/dL (31-37) Red Cell Distribution Width 14.3 % (11.5-14.5) Platelet Count 557 x10^3/uL (140-400) Neutrophils (%) (Auto) 61 % (31-73) Lymphocytes (%) (Auto) 27 % (24-48) Monocytes (%) (Auto) 8 % (0-9) Eosinophils (%) (Auto) 3 % (0-3) Basophils (%) (Auto) 1 % (0-3) Neutrophils # (Auto) 5.3 x10^3/uL (1.8-7.7) Lymphocytes # (Auto) 2.4 x10^3/uL (1.0-4.8) Monocytes # (Auto) 0.7 x10^3/uL (0.0-1.1) Eosinophils # (Auto) 0.3 x10^3/uL (0.0-0.7) Basophils # (Auto) 0.1 x10^3/uL (0.0-0.2) Assessment and Plan Assessmemt and Plan Problems Medical Problems: (1) Pneumonia Status: Acute * Response to training Problem List (body system elements) * Impaired fnctnl mobility * Strength * Balance * Age * Knowledge-safe techniques * Skin Integrity * Pain Clinical Presentation * Evolving Evaluation Complexity Level * Moderate Complexity Pt/caregiver agrees with plan of care/goals * Yes Patient condition at conclusion of therapy * Pt in bed * Bed alarm on * Call light in reach * Phone in reach * PtIn no apparent distress * Pt denies further needs Communicated Patient Care With (Name, Title) * Pili RN; ANN Sibley Goal 1 - Bed Mobility Assistance Required * Independent Goal 2 - Transfers Assistance Required * Independent Goal 3 - Ambulation Assistance Required * Independent Goal 3 - Ambulation Distance * 100' Goal 3 - Ambulation Device * No Device Treatment Plan * Therapeutic Exercise * Bed Mobility Training * Transfer training * Gait Training * Body Mechanics Training * Dynamic Balance Training Frequency of Treatment Expected * 6 visits/week Duration of Treatment Expected * 1 week Discharge Recommendations * Retirement Unit Comment Review of Relevant I have reviewed the following items prince (where applicable) has been applied. Labs Laboratory Tests Test 12/20/19 03:22 12/20/19 11:00 12/20/19 14:30 12/21/19 05:55 Influenza Type A Antigen Negative (NEGATIVE) Influenza Type B Antigen Negative (NEGATIVE) White Blood Count 11.2 x10^3/uL (4.0-11.0) 8.7 x10^3/uL (4.0-11.0) Red Blood Count 4.16 x10^6/uL (3.50-5.40) 3.96 x10^6/uL (3.50-5.40) Hemoglobin 11.9 g/dL (12.0-15.5) 11.4 g/dL (12.0-15.5) Hematocrit 36.5 % (36.0-47.0) 35.1 % (36.0-47.0) Mean Corpuscular Volume 88 fL (79-100) 89 fL (79-100) Mean Corpuscular Hemoglobin 29 pg (25-35) 29 pg (25-35) Mean Corpuscular Hemoglobin Concent 33 g/dL (31-37) 33 g/dL (31-37) Red Cell Distribution Width 14.2 % (11.5-14.5) 14.3 % (11.5-14.5) Platelet Count 558 x10^3/uL (140-400) 557 x10^3/uL (140-400) Neutrophils (%) (Auto) 70 % (31-73) 61 % (31-73) Lymphocytes (%) (Auto) 19 % (24-48) 27 % (24-48) Monocytes (%) (Auto) 9 % (0-9) 8 % (0-9) Eosinophils (%) (Auto) 2 % (0-3) 3 % (0-3) Basophils (%) (Auto) 1 % (0-3) 1 % (0-3) Neutrophils # (Auto) 7.8 x10^3/uL (1.8-7.7) 5.3 x10^3/uL (1.8-7.7) Lymphocytes # (Auto) 2.2 x10^3/uL (1.0-4.8) 2.4 x10^3/uL (1.0-4.8) Monocytes # (Auto) 1.0 x10^3/uL (0.0-1.1) 0.7 x10^3/uL (0.0-1.1) Eosinophils # (Auto) 0.2 x10^3/uL (0.0-0.7) 0.3 x10^3/uL (0.0-0.7) Basophils # (Auto) 0.1 x10^3/uL (0.0-0.2) 0.1 x10^3/uL (0.0-0.2) Erythrocyte Sedimentation Rate 43 (0-25) Creatinine 0.8 mg/dL (0.6-1.0) 0.9 mg/dL (0.6-1.0) Estimated GFR (Cockcroft-Gault) 73.2 63.9 Vancomycin Level Trough 1.8 mcg/mL (10.0-20.0) Vancomycin Last Dose Date 12/19/19 Vancomycin Last Dose Time 1430 Laboratory Tests Test 12/20/19 14:30 12/21/19 05:55 Creatinine 0.8 mg/dL (0.6-1.0) 0.9 mg/dL (0.6-1.0) Estimated GFR (Cockcroft-Gault) 73.2 63.9 Vancomycin Level Trough 1.8 mcg/mL (10.0-20.0) Vancomycin Last Dose Date 12/19/19 Vancomycin Last Dose Time 1430 White Blood Count 8.7 x10^3/uL (4.0-11.0) Red Blood Count 3.96 x10^6/uL (3.50-5.40) Hemoglobin 11.4 g/dL (12.0-15.5) Hematocrit 35.1 % (36.0-47.0) Mean Corpuscular Volume 89 fL (79-100) Mean Corpuscular Hemoglobin 29 pg (25-35) Mean Corpuscular Hemoglobin Concent 33 g/dL (31-37) Red Cell Distribution Width 14.3 % (11.5-14.5) Platelet Count 557 x10^3/uL (140-400) Neutrophils (%) (Auto) 61 % (31-73) Lymphocytes (%) (Auto) 27 % (24-48) Monocytes (%) (Auto) 8 % (0-9) Eosinophils (%) (Auto) 3 % (0-3) Basophils (%) (Auto) 1 % (0-3) Neutrophils # (Auto) 5.3 x10^3/uL (1.8-7.7) Lymphocytes # (Auto) 2.4 x10^3/uL (1.0-4.8) Monocytes # (Auto) 0.7 x10^3/uL (0.0-1.1) Eosinophils # (Auto) 0.3 x10^3/uL (0.0-0.7) Basophils # (Auto) 0.1 x10^3/uL (0.0-0.2) Microbiology 12/18/19 Blood Culture - Preliminary, Resulted NO GROWTH AFTER 2 DAYS Medications Current Medications Prednisone (Prednisone) 50 mg 1X ONCE PO Last administered on 12/18/19at 09:54; Start 12/18/19 at 09:30; Stop 12/18/19 at 09:31; Status DC Albuterol Sulfate (Ventolin Neb Soln) 2.5 mg 1X ONCE NEB Last administered on 12/18/19at 09:39; Start 12/18/19 at 10:00; Stop 12/18/19 at 10:01; Status DC Doxycycline Hyclate 100 mg/ Dextrose 100 ml @ 50 mls/hr 1X ONCE IV Last administered on 12/18/19at 10:32; Start 12/18/19 at 10:30; Stop 12/18/19 at 12:2 9; Status DC Ceftriaxone Sodium (Rocephin) 1 gm 1X ONCE IVP Last administered on 12/18/19at 10:27; Start 12/18/19 at 10:00; Stop 12/18/19 at 10:01; Status DC Ondansetron HCl (Zofran) 4 mg PRN Q8HRS PRN IV NAUSEA/VOMITING; Start 12/18/19 at 11:30; Stop 12/18/19 at 13:17; Status DC Fentanyl Citrate (Fentanyl 2ml Vial) 50 mcg PRN Q1HR PRN IV PAIN Last administered on 12/18/19at 15:31; Start 12/18/19 at 11:30; Stop 12/19/19 at 11:29; Status DC Acetaminophen (Tylenol) 650 mg PRN Q4HRS PRN PO FEVER; Start 12/18/19 at 11:30; Stop 12/18/19 at 13:17; Status DC Albuterol/ Ipratropium (Duoneb) 3 ml RTQID NEB ; Start 12/18/19 at 12:00; Stop 12/18/19 at 13:17; Status DC Sodium Chloride 1,000 ml @ 1,000 mls/hr 1X ONCE IV Last administered on 12/18/19at 11:58; Start 12/18/19 at 11:30; Stop 12/18/19 at 12:29; Status DC Sodium Chloride 1,000 ml @ 1,000 mls/hr 1X ONCE IV Last administered on 12/18/19at 14:22; Start 12/18/19 at 11:30; Stop 12/18/19 at 12:29; Status DC Albuterol/ Ipratropium (Duoneb) 3 ml RTQID NEB Last administered on 12/20/19at 07:17; Start 12/18/19 at 16:00 Ondansetron HCl (Zofran) 4 mg PRN Q6HRS PRN IVP NAUSEA/VOMITING Last administered on 12/18/19at 15:24; Start 12/18/19 at 13:15 Acetaminophen (Tylenol) 500 mg PRN Q6HRS PRN PO MILD PAIN / TEMP; Start 12/18/19 at 13:15 Acetaminophen/ Codeine Phosphate (Tylenol #3) 1 tab PRN Q6HRS PRN PO MODERATE PAIN (1st Choice) Last administered on 12/21/19at 09:06; Start 12/18/19 at 13:15 Benzonatate (Tessalon Perle) 100 mg [id number] PO Last administered on 12/21/19at 09:03; Start 12/18/19 at 14:00 Guaifenesin (Robitussin Dm) 10 ml PRN Q6HRS PRN PO COUGH Last administered on 12/18/19at 15:20; Start 12/18/19 at 13:15 Temazepam (Restoril) 7.5 mg PRN QHS PRN PO INSOMNIA Last administered on 12/20/19at 20:15; Start 12/18/19 at 13:15 Clonidine HCl (Catapres) 0.1 mg PRN Q1HR PRN PO HYPERTENSION; Start 12/18/19 at 13:15 Ceftriaxone Sodium (Rocephin) 1 gm Q24H IVP ; Start 12/19/19 at 10:00; Stop 12/18/19 at 13:22; Status DC Azithromycin (Zithromax) 500 mg 1X ONCE PO ; Start 12/18/19 at 13:15; Stop 12/18/19 at 13:22; Status DC Azithromycin (Zithromax) 250 mg DAILY PO ; Start 12/19/19 at 09:00; Stop 12/18/19 at 13:22; Status DC Clotrimazole (Lotrimin) 1 adelita TID TP Last administered on 12/21/19at 09:05; Start 12/18/19 at 14:00 Acetaminophen/ Hydrocodone Bitart (Lortab 5/325) 1 tab PRN Q6HRS PRN PO MODERATE PAIN (2nd Choice) Last administered on 12/21/19at 04:05; Start 12/18/19 at 13:15 Hydroxyzine HCl (Atarax) 25 mg PRN BID PRN PO ANXIETY / AGITATION Last administered on 12/20/19at 19:46; Start 12/18/19 at 13:15 Levothyroxine Sodium (Synthroid) 112 mcg DAILY06 PO Last administered on 12/21/19at 05:14; Start 12/19/19 at 06:00 Lorazepam (Ativan) 0.5 mg BID PO Last administered on 12/21/19at 09:03; Start 12/18/19 at 21:00 Ondansetron HCl (Zofran Odt) 4 mg PRN Q8HRS PRN PO NAUSEA Last administered on 12/20/19at 19:46; Start 12/18/19 at 13:15 Quetiapine Fumarate (SEROquel) 25 mg QHS PO Last administered on 12/20/19at 20:15; Start 12/18/19 at 21:00 Non-Formulary Medication (Ondansetron Hcl (Zofran)) 1 tab Q8HRS PRN PO NAUSEA; Start 12/18/19 at 13:15; Status UNV Potassium Chloride (Klor-Con) 40 meq 1X ONCE PO Last administered on 12/18/19at 15:22; Start 12/18/19 at 13:15; Stop 12/18/19 at 13:27; Status DC Vancomycin HCl (Vanco Per Pharmacy) 1 each PRN DAILY PRN MC SEE COMMENTS Last administered on 12/20/19at 17:01; Start 12/18/19 at 13:30 Piperacillin Sod/ Tazobactam Sod (Zosyn Per Pharmacy) 1 each PRN DAILY PRN MC SEE COMMENTS Last administered on 12/19/19at 10:15; Start 12/18/19 at 13:30 Nicotine (Nicoderm Cq 21mg) 1 patch PRN DAILY PRN TD SMOKING CESSATION Last administered on 12/20/19at 15:25; Start 12/18/19 at 13:30 Vancomycin HCl 1.25 gm/Sodium Chloride 250 ml @ 167 mls/hr ONCE ONCE IV Last administered on 12/18/19at 14:23; Start 12/18/19 at 14:00; Stop 12/18/19 at 15:29; Status DC Piperacillin Sod/ Tazobactam Sod 4.5 gm/Sodium Chloride 100 ml @ 200 mls/hr Q6HRS IV Last administered on 12/21/19at 05:14; Start 12/18/19 at 14:00 Vancomycin HCl 750 mg/Sodium Chloride 250 ml @ 250 mls/hr Q24H IV Last administered on 12/20/19at 16:31; Start 12/19/19 at 14:30; Stop 12/20/19 at 16:56; Status DC Vancomycin HCl (Vancomycin Trough Level) 1 each 1X ONCE MC Last administered on 12/20/19at 14:00; Start 12/20/19 at 14:00; Stop 12/20/19 at 14:01; Status DC Lactobacillus Rhamnosus (Culturelle) 1 cap BID PO Last administered on 12/21/19at 09:03; Start 12/19/19 at 21:00 Nystatin (Nystop) 1 adelita BID TP Last administered on 12/21/19at 09:05; Start 12/19/19 at 21:00 Vancomycin HCl 750 mg/Sodium Chloride 250 ml @ 250 mls/hr Q12H IV Last administered on 12/21/19at 04:04; Start 12/21/19 at 04:00 Vancomycin HCl (Vancomycin Trough Level) 1 each 1X ONCE MC ; Start 12/21/19 at 15:30; Stop 12/21/19 at 15:31 Active Scripts Active Clotrimazole 15 Gm Cream..g. 1 Adelita TP TID [place] 5-325 Tablet (Acetaminophen/Hydrocodone Bitart) 1 Each Tablet 1-2 Each PO PRN Q6HRS PRN as needed for pain Clindamycin Hcl 300 Mg Capsule 1 Cap PO TID Levaquin (Levofloxacin) 500 Mg Tablet 1 Tab PO DAILY Zofran Odt (Ondansetron) 4 Mg Tab.rapdis 1 Tab SL PRN Q8HRS PRN Hydroxyzine Hcl 25 Mg Tablet 1 Tab PO PRN BID PRN [Vancomycin Hcl] 250 MG/5 ML Solution 250 Mg PO QID 10 Days Ativan (Lorazepam) 0.5 Mg Tablet 0.5 Mg PO BID [place] 5-325 Tablet (Acetaminophen/Hydrocodone Bitart) 1 Each Tablet 1 Tab PO PRN Q6HRS PRN Zofran (Ondansetron Hcl) 4 Mg Tablet 1 Tab PO Q8HRS PRN Hydrocodone-Apap 10-325 (Hydrocodone Bit/Acetaminophen) 1 Each Tablet 1 Tab PO PRN Q6HRS PRN Quetiapine Fumarate 25 Mg Tablet 25 Mg PO QHS Levothyroxine Sodium 112 Mcg Tablet 112 Mcg PO DAILY07 Reported Morphine Sulfate 30 Mg Tablet 1 Tab PO TID Vitals/I & O Vital Sign - Last 24 Hours 12/20/19 12/20/19 12/20/19 12/20/19 11:59 12:41 15:25 15:59 Temp 97.4 97.6 97.4 97.6 Pulse 96 85 Resp 20 20 B/P (MAP) 119/67 (84) 120/60 (80) Pulse Ox 95 97 O2 Delivery Nasal Cannula Nasal Cannula Room Air Nasal Cannula O2 Flow Rate 2.0 2.0 2.0 12/20/19 12/20/19 12/20/19 12/20/19 16:31 19:00 19:46 20:00 Temp 98.6 98.6 Pulse 83 Resp 18 20 B/P (MAP) 132/79 (96) Pulse Ox 98 98 O2 Delivery Nasal Cannula Nasal Cannula Room Air Room Air O2 Flow Rate 2.0 2.0 2.0 2.0 12/20/19 12/20/19 12/20/19 12/20/19 20:46 21:49 22:49 22:57 Temp 98.6 98.6 Pulse 84 Resp 20 18 B/P (MAP) 130/69 (89) Pulse Ox 98 98 98 97 O2 Delivery Room Air Nasal Cannula Room Air Nasal Cannula O2 Flow Rate 2.0 2.0 2.0 2.0 12/21/19 12/21/19 12/21/19 12/21/19 03:00 04:05 05:05 07:59 Temp 98.1 97.9 98.1 97.9 Pulse 80 69 Resp 18 18 18 B/P (MAP) 130/69 (89) 119/68 (85) Pulse Ox 98 97 97 99 O2 Delivery Nasal Cannula Room Air Room Air Room Air O2 Flow Rate 2.0 2.0 2.0 12/21/19 09:06 O2 Delivery Nasal Cannula O2 Flow Rate 2.0 Intake and Output0 12/20/19 12/20/19 12/21/19 15:00 23:00 07:00 Intake Total 480 ml 720 ml Balance 480 ml 720 ml CHINA VIVEROS MD Dec 21, 2019 11:06
[2019-12-21 11:59] VITALS: BP 126/64
[2019-12-21 15:59] VITALS: BP 161/99
[2019-12-21 16:07] LABS: VANC TR 7.8 mcg/mL (10.0-20.0)
[2019-12-21] MEDS: VANCOMYCIN PER PHARMACY MC PRN (16:31)
--- NOTE | 2019-12-21 16:31 | NUR ---
Pharmacy Vancomycin Dosing Note S: Consulted to monitor and dose vancomycin started 12/18/19. O: JACQEULINE BANERJEE is a 59 year old F with HCAP, . Other Antibiotics: ZOSYN 12/18 - LABS: Last BUN: 17 Last Creatinine: 0.9 Creatinine Clearance: 47 mL/min Last WBC: 8.7 Last Procalcitonin: - Tmax (past 24 hours): 97.9 Microbiology: 12/18 PENDING I/O: 1740/1400 Drug Levels: Last Trough level: 7.8 on 12/21/19 at 1545 Last dose given 12/21/19 at 0404 Vancomycin Dosing: Dosing Weight: Actual Target Trough: 15-20 A: Based on: P: 1. Change Vancomycin 750 mg IV q8h 2. Follow up Trough level on 12/21/19 at 1530 3. Pharmacy will continue to monitor, follow and adjust therapy as needed. JAMI KIM RPH, 12/21/19 1631 Addendum: 12/21/19 at 1634 by JAMI KIM RPH PHA FOLLOW UP TROUGH IN 5-7 DAYS OR IF RENAL FUNCTION CHANGES.
[2019-12-21] MEDS: VANCOMYCIN 750 MG in IV NORMAL SALINE 250ML 250 ML IV SCH (17:36)
[2019-12-21] MEDS: hydrOXYzine 25 MG TABLET PO PRN (17:37)
[2019-12-21] MEDS: NICOTINE 21MG PATCH. TD PRN (17:37)
[2019-12-21 19:00] VITALS: BP 122/66
[2019-12-21] MEDS: QUEtiapine 25 MG TABLET. PO SCH (21:41)
--- NOTE | 2019-12-21 22:46 | NUR ---
Pt very tearful, crying. Claimed shes having a panic attack. Refused to take her pill ativan and her other night meds @ this time. She claimed they leave a funny taste in her mouth though theyre her home meds. Not able to console. Dr Brito notified, orders received.
[2019-12-21 23:00] VITALS: BP 151/89
[2019-12-22] MEDS: VANCOMYCIN 750 MG in IV NORMAL SALINE 250ML 250 ML IV SCH ×2 (01:05→07:48)
[2019-12-22] MEDS: hydrOXYzine 25 MG TABLET PO PRN (04:37)
[2019-12-22] MEDS: PIPERACILLIN/TAZOBACTAM 4.5 GM in IV NORMAL SALINE 100ML 100 ML IV SCH (06:26)
[2019-12-22] MEDS: LEVOTHYROXINE 112 MCG TABLET PO SCH (06:26)
[2019-12-22 07:00] VITALS: BP 110/57
--- NOTE | 2019-12-22 07:50 | PDOC ---
PROGRESS NOTES Chief Complaint Chief Complaint A/P: HCAP,. gram pos gram neg GENERALIZED WEAKNESS Malrnourished, cachexia - BMI 17 SEPSIS, POA no organ dysfcn Elevated lactate 2,5 - on admit, resolved COPD hx, smoker - stills smokes few cigars in snu HTN, controlled Psychosis on olanzapine etc Discharge Recommendations - Jail Unit History of Present Illness History of Present Illness Ms Amor is a 59 yo F w/ PMHx HTN, anxiety, psychosis NOS, COPD (undiagnosed), tobacco dependence that has been sick now for well over 2 weeks. She presented at [facility], was diagnosed with flu and discharged home with supportive care. She presented she has a cough, mostly productive of discolored sputum. She does not think she has underlying COPD. She has been sick to her stomach. No chest pain or pressure. No hemoptysis. She is not up-to-date on her flu and pneumonia vaccinations. She had a chest x-ray, which revealed a left infrahilar infiltrate. The patient denies nausea, vomiting, or diarrhea. NO acute issues overnight. She is continually requesting IV pain medications and "everything" to be IV. She is sleeping, easily awakened. Ate 100% of her breakfast tray. Tells me her hands are burning. Plan: Change zosyn to augmentin PT OT Placement is likely necessary Vitals Vitals Vital Signs Date Time Temp Pulse Resp B/P (MAP) Pulse Ox O2 Delivery O2 Flow Rate FiO2 12/21/19 23:00 97.9 91 20 151/89 (109) 100 Nasal Cannula 2.0 97.9 Physical Exam General: Alert, Oriented X3, Cooperative, No acute distress, Other (doubled up, feels cold) Heart: Regular rate, Normal S1 Lungs: Wheezing, Other (Decresed in BL BS ) Abdomen: Normal bowel sounds, Soft Extremities: No clubbing, No cyanosis, No edema, Normal pulses, No tenderness/swelling Skin: No rashes, No breakdown, No significant lesion Labs LABS Laboratory Tests Test 12/21/19 15:40 Vancomycin Level Trough 7.8 mcg/mL (10.0-20.0) Vancomycin Last Dose Date 12/21/2019 Vancomycin Last Dose Time 0400 Assessment and Plan Assessmemt and Plan Problems Medical Problems: (1) Pneumonia Status: Acute Comment Review of Relevant I have reviewed the following items prince (where applicable) has been applied. Labs Laboratory Tests Test 12/20/19 11:00 12/20/19 14:30 12/21/19 05:55 12/21/19 15:40 White Blood Count 11.2 x10^3/uL (4.0-11.0) 8.7 x10^3/uL (4.0-11.0) Red Blood Count 4.16 x10^6/uL (3.50-5.40) 3.96 x10^6/uL (3.50-5.40) Hemoglobin 11.9 g/dL (12.0-15.5) 11.4 g/dL (12.0-15.5) Hematocrit 36.5 % (36.0-47.0) 35.1 % (36.0-47.0) Mean Corpuscular Volume 88 fL (79-100) 89 fL (79-100) Mean Corpuscular Hemoglobin 29 pg (25-35) 29 pg (25-35) Mean Corpuscular Hemoglobin Concent 33 g/dL (31-37) 33 g/dL (31-37) Red Cell Distribution Width 14.2 % (11.5-14.5) 14.3 % (11.5-14.5) Platelet Count 558 x10^3/uL (140-400) 557 x10^3/uL (140-400) Neutrophils (%) (Auto) 70 % (31-73) 61 % (31-73) Lymphocytes (%) (Auto) 19 % (24-48) 27 % (24-48) Monocytes (%) (Auto) 9 % (0-9) 8 % (0-9) Eosinophils (%) (Auto) 2 % (0-3) 3 % (0-3) Basophils (%) (Auto) 1 % (0-3) 1 % (0-3) Neutrophils # (Auto) 7.8 x10^3/uL (1.8-7.7) 5.3 x10^3/uL (1.8-7.7) Lymphocytes # (Auto) 2.2 x10^3/uL (1.0-4.8) 2.4 x10^3/uL (1.0-4.8) Monocytes # (Auto) 1.0 x10^3/uL (0.0-1.1) 0.7 x10^3/uL (0.0-1.1) Eosinophils # (Auto) 0.2 x10^3/uL (0.0-0.7) 0.3 x10^3/uL (0.0-0.7) Basophils # (Auto) 0.1 x10^3/uL (0.0-0.2) 0.1 x10^3/uL (0.0-0.2) Erythrocyte Sedimentation Rate 43 (0-25) Creatinine 0.8 mg/dL (0.6-1.0) 0.9 mg/dL (0.6-1.0) Estimated GFR (Cockcroft-Gault) 73.2 63.9 Vancomycin Level Trough 1.8 mcg/mL (10.0-20.0) 7.8 mcg/mL (10.0-20.0) Vancomycin Last Dose Date 12/19/19 12/21/2019 Vancomycin Last Dose Time 1430 0400 Laboratory Tests Test 12/21/19 15:40 Vancomycin Level Trough 7.8 mcg/mL (10.0-20.0) Vancomycin Last Dose Date 12/21/2019 Vancomycin Last Dose Time 0400 Microbiology 12/18/19 Blood Culture - Preliminary, Resulted NO GROWTH AFTER 3 DAYS Medications Current Medications Prednisone (Prednisone) 50 mg 1X ONCE PO Last administered on 12/18/19at 09:54; Start 12/18/19 at 09:30; Stop 12/18/19 at 09:31; Status DC Albuterol Sulfate (Ventolin Neb Soln) 2.5 mg 1X ONCE NEB Last administered on 12/18/19at 09:39; Start 12/18/19 at 10:00; Stop 12/18/19 at 10:01; Status DC Doxycycline Hyclate 100 mg/ Dextrose 100 ml @ 50 mls/hr 1X ONCE IV Last administered on 12/18/19at 10:32; Start 12/18/19 at 10:30; Stop 12/18/19 at 12:29; Status DC Ceftriaxone Sodium (Rocephin) 1 gm 1X ONCE IVP Last administered on 12/18/19at 10:27; Start 12/18/19 at 10:00; Stop 12/18/19 at 10:01; Status DC Ondansetron HCl (Zofran) 4 mg PRN Q8HRS PRN IV NAUSEA/VOMITING; Start 12/18/19 at 11:30; Stop 12/18/19 at 13:17; Status DC Fentanyl Citrate (Fentanyl 2ml Vial) 50 mcg PRN Q1HR PRN IV PAIN Last administered on 12/18/19at 15:31; Start 12/18/19 at 11:30; Stop 12/19/19 at 11:29; Status DC Acetaminophen (Tylenol) 650 mg PRN Q4HRS PRN PO FEVER; Start 12/18/19 at 11:30; Stop 12/18/19 at 13:17; Status DC Albuterol/ Ipratropium (Duoneb) 3 ml RTQID NEB ; Start 12/18/19 at 12:00; Stop 12/18/19 at 13:17; Status DC Sodium Chloride 1,000 ml @ 1,000 mls/hr 1X ONCE IV Last administered on 12/18/19at 11:58; Start 12/18/19 at 11:30; Stop 12/18/19 at 12:29; Status DC Sodium Chloride 1,000 ml @ 1,000 mls/hr 1X ONCE IV Last administered on 12/18/19at 14:22; Start 12/18/19 at 11:30; Stop 12/18/19 at 12:29; Status DC Albuterol/ Ipratropium (Duoneb) 3 ml RTQID NEB Last administered on 12/20/19at 07:17; Start 12/18/19 at 16:00 Ondansetron HCl (Zofran) 4 mg PRN Q6HRS PRN IVP NAUSEA/VOMITING Last administered on 12/18/19at 15:24; Start 12/18/19 at 13:15 Acetaminophen (Tylenol) 500 mg PRN Q6HRS PRN PO MILD PAIN / TEMP; Start 12/18/19 at 13:15 Acetaminophen/ Codeine Phosphate (Tylenol #3) 1 tab PRN Q6HRS PRN PO MODERATE PAIN (1st Choice) Last administered on 12/21/19at 17:37; Start 12/18/19 at 13:15 Benzonatate (Tessalon Perle) 100 mg [id number] PO Last administered on 12/21/19at 21:41; Start 12/18/19 at 14:00 Guaifenesin (Robitussin Dm) 10 ml PRN Q6HRS PRN PO COUGH Last administered on 12/18/19at 15:20; Start 12/18/19 at 13:15 Temazepam (Restoril) 7.5 mg PRN QHS PRN PO INSOMNIA Last administered on 12/20/19at 20:15; Start 12/18/19 at 13:15 Clonidine HCl (Catapres) 0.1 mg PRN Q1HR PRN PO HYPERTENSION; Start 12/18/19 at 13:15 Ceftriaxone Sodium (Rocephin) 1 gm Q24H IVP ; Start 12/19/19 at 10:00; Stop 12/18/19 at 13:22; Status DC Azithromycin (Zithromax) 500 mg 1X ONCE PO ; Start 12/18/19 at 13:15; Stop 12/18/19 at 13:22; Status DC Azithromycin (Zithromax) 250 mg DAILY PO ; Start 12/19/19 at 09:00; Stop 12/18/19 at 13:22; Status DC Clotrimazole (Lotrimin) 1 joaquín TID TP Last administered on 12/21/19at 14:03; Start 12/18/19 at 14:00 Acetaminophen/ Hydrocodone Bitart (Lortab 5/325) 1 tab PRN Q6HRS PRN PO MODERATE PAIN (2nd Choice) Last administered on 12/21/19at 04:05; Start 12/18/19 at 13:15 Hydroxyzine HCl (Atarax) 25 mg PRN BID PRN PO ANXIETY / AGITATION Last administered on 12/22/19at 04:37; Start 12/18/19 at 13:15 Levothyroxine Sodium (Synthroid) 112 mcg DAILY06 PO Last administered on 12/22/19at 06:26; Start 12/19/19 at 06:00 Lorazepam (Ativan) 0.5 mg BID PO Last administered on 12/21/19at 09:03; Start 12/18/19 at 21:00 Ondansetron HCl (Zofran Odt) 4 mg PRN Q8HRS PRN PO NAUSEA Last administered on 12/20/19at 19:46; Start 12/18/19 at 13:15 Quetiapine Fumarate (SEROquel) 25 mg QHS PO Last administered on 12/21/19at 21:41; Start 12/18/19 at 21:00 Non-Formulary Medication (Ondansetron Hcl (Zofran)) 1 tab Q8HRS PRN PO NAUSEA; Start 12/18/19 at 13:15; Status UNV Potassium Chloride (Klor-Con) 40 meq 1X ONCE PO Last administered on 12/18/19at 15:22; Start 12/18/19 at 13:15; Stop 12/18/19 at 13:27; Status DC Vancomycin HCl (Vanco Per Pharmacy) 1 each PRN DAILY PRN MC SEE COMMENTS Last administered on 12/21/19at 16:31; Start 12/18/19 at 13:30 Piperacillin Sod/ Tazobactam Sod (Zosyn Per Pharmacy) 1 each PRN DAILY PRN MC SEE COMMENTS Last administered on 12/19/19at 10:15; Start 12/18/19 at 13:30 Nicotine (Nicoderm Cq 21mg) 1 patch PRN DAILY PRN TD SMOKING CESSATION Last administered on 12/21/19at 17:37; Start 12/18/19 at 13:30 Vancomycin HCl 1.25 gm/Sodium Chloride 250 ml @ 167 mls/hr ONCE ONCE IV Last administered on 12/18/19at 14:23; Start 12/18/19 at 14:00; Stop 12/18/19 at 15:29; Status DC Piperacillin Sod/ Tazobactam Sod 4.5 gm/Sodium Chloride 100 ml @ 200 mls/hr Q6HRS IV Last administered on 12/22/19at 06:26; Start 12/18/19 at 14:00 Vancomycin HCl 750 mg/Sodium Chloride 250 ml @ 250 mls/hr Q24H IV Last administered on 12/20/19at 16:31; Start 12/19/19 at 14:30; Stop 12/20/19 at 16:56; Status DC Vancomycin HCl (Vancomycin Trough Level) 1 each 1X ONCE MC Last administered on 12/20/19at 14:00; Start 12/20/19 at 14:00; Stop 12/20/19 at 14:01; Status DC Lactobacillus Rhamnosus (Culturelle) 1 cap BID PO Last administered on 12/21/19at 21:41; Start 12/19/19 at 21:00 Nystatin (Nystop) 1 joaquín BID TP Last administered on 12/21/19at 23:23; Start 12/19/19 at 21:00 Vancomycin HCl 750 mg/Sodium Chloride 250 ml @ 250 mls/hr Q12H IV Last administered on 12/21/19at 04:04; Start 12/21/19 at 04:00; Stop 12/21/19 at 16:11; Status DC Vancomycin HCl (Vancomycin Trough Level) 1 each 1X ONCE MC Last administered on 12/21/19at 15:30; Start 12/21/19 at 15:30; Stop 12/21/19 at 15:31; Status DC Vancomycin HCl 750 mg/Sodium Chloride 250 ml @ 250 mls/hr Q8H IV Last administered on 12/22/19at 07:48; Start 12/21/19 at 16:00 Lorazepam (Ativan Inj) 1 mg PRN Q6HRS PRN IVP ANXIETY / AGITATION Last administered on 12/22/19at 06:27; Start 12/21/19 at 23:00 Active Scripts Active Clotrimazole 15 Gm Cream..g. 1 Joaquín TP TID Cyclone 5-325 Tablet (Acetaminophen/Hydrocodone Bitart) 1 Each Tablet 1-2 Each PO PRN Q6HRS PRN as needed for pain Clindamycin Hcl 300 Mg Capsule 1 Cap PO TID Levaquin (Levofloxacin) 500 Mg Tablet 1 Tab PO DAILY Zofran Odt (Ondansetron) 4 Mg Tab.rapdis 1 Tab SL PRN Q8HRS PRN Hydroxyzine Hcl 25 Mg Tablet 1 Tab PO PRN BID PRN [Vancomycin Hcl] 250 MG/5 ML Solution 250 Mg PO QID 10 Days Ativan (Lorazepam) 0.5 Mg Tablet 0.5 Mg PO BID Cyclone 5-325 Tablet (Acetaminophen/Hydrocodone Bitart) 1 Each Tablet 1 Tab PO PRN Q6HRS PRN Zofran (Ondansetron Hcl) 4 Mg Tablet 1 Tab PO Q8HRS PRN Hydrocodone-Apap 10-325 (Hydrocodone Bit/Acetaminophen) 1 Each Tablet 1 Tab PO PRN Q6HRS PRN Quetiapine Fumarate 25 Mg Tablet 25 Mg PO QHS Levothyroxine Sodium 112 Mcg Tablet 112 Mcg PO DAILY07 Reported Morphine Sulfate 30 Mg Tablet 1 Tab PO TID Vitals/I & O Vital Sign - Last 24 Hours 12/21/19 12/21/19 12/21/19 12/21/19 07:59 08:00 09:06 11:59 Temp 97.9 98.1 97.9 98.1 Pulse 69 85 Resp 18 18 B/P (MAP) 119/68 (85) 126/64 (84) Pulse Ox 99 96 O2 Delivery Room Air Room Air Nasal Cannula Room Air O2 Flow Rate 2.0 2.0 12/21/19 12/21/19 12/21/19 12/21/19 12:14 15:59 17:37 18:37 Temp 97.4 97.4 Pulse 89 Resp 18 20 B/P (MAP) 161/99 (119) Pulse Ox 91 100 O2 Delivery Nasal Cannula Room Air Nasal Cannula Nasal Cannula O2 Flow Rate 2.0 2.0 2.0 12/21/19 12/21/19 12/21/19 19:00 20:00 23:00 Temp 97.8 97.9 97.8 97.9 Pulse 87 91 Resp 22 20 B/P (MAP) 122/66 (84) 151/89 (109) Pulse Ox 97 100 O2 Delivery Nasal Cannula Nasal Cannula Nasal Cannula O2 Flow Rate 2.0 2.0 2.0 Intake and Output 12/21/19 12/21/19 12/22/19 15:00 23:00 07:00 Intake Total 100 ml 120 ml 720 ml Balance 100 ml 120 ml 720 ml VANI ALONSO MD Dec 22, 2019 07:50
[2019-12-22] MEDS: IPRATRPIUM/ALBUTEROL 0.5/2.5MG 3 ML NEBU. NEB SCH ×4 (08:55→20:00)
[2019-12-22] MEDS: LORazepam 0.5 MG TABLET PO SCH ×2 (09:00→21:52)
[2019-12-22] MEDS: CLOTRIMAZOLE 1% TOPICAL CREAM 15GM TUBE. TP SCH ×3 (09:00→21:53)
[2019-12-22] MEDS: NYSTATIN TOPICAL POWDER 15GM BOTTLE. TP SCH ×3 (09:00→21:53)
--- NOTE | 2019-12-22 09:43 | NUR ---
0900 ativan: Pt received IV ativan prior to day shift. Pt still very drowsy. Non-administered PO ativan. Will continue to monitor pt.
[2019-12-22] MEDS: LACTOBACILLUS RHAMNOSUS GG 1 CAPSULE. PO SCH ×2 (09:49→21:53)
[2019-12-22] MEDS: BENZONATATE 100 MG CAPSULE. PO SCH ×3 (09:49→21:52)
[2019-12-22 11:00] VITALS: BP 123/67
[2019-12-22] MEDS: AMOXICILLIN/K CLAV 875/125MG TABLET. PO SCH ×2 (12:25→21:52)
[2019-12-22] MEDS: HYDROcodone/APAP 5/325MG 1 TAB TABLET PO PRN ×2 (12:34→22:19)
--- NOTE | 2019-12-22 13:54 | NUR ---
SW following. Discussed with RN, pt is declining SNU. Has been refusing breathing treatments. Pt having chest xray today. SW to meet with pt to determine if agreeable to home health. SW will continue to follow.
[2019-12-22 15:00] VITALS: BP 123/69
--- NOTE | 2019-12-22 15:19 | NUR ---
Pain meds: pt requested pain meds. Took her Tylenol 3, she stated she wanted IV pain meds. Let pt know Dr. Bates transitioned her pain meds from IV to PO, she requested the dr be contacted to changed back to IV as she states she has trouble swallowing. Pt was eating a hamburger at the time with no apparent trouble. Spoke with Dr. Bates, he stated the pt will not get IV pain meds at this time, just as he informed the pt when he spoke with her. Took pain med to pt's room, she was asleep. Will continue to monitor pt.
--- NOTE | 2019-12-22 16:58 | PDOC ---
PULMONARY PROGRESS NOTES Subjective nc o2 no complaints Vitals Vital Signs Date Time Temp Pulse Resp B/P (MAP) Pulse Ox O2 Delivery O2 Flow Rate FiO2 12/22/19 15:00 98.3 104 18 123/69 (87) 94 Nasal Cannula 2.0 98.3 ROS: No Nausea, No Chest Pain, No Increase Cough General: Alert, Oriented X4 Lungs: Wheezing, Other (Decresed in BL BS ) Cardiovascular: S1, S2 Abdomen: Soft, Non-tender Neuro Exam: Alert Extremities: No Edema Skin: Warm, Dry Labs Laboratory Tests Test 12/21/19 05:55 12/21/19 15:40 12/22/19 06:00 White Blood Count 8.7 x10^3/uL (4.0-11.0) Red Blood Count 3.96 x10^6/uL (3.50-5.40) Hemoglobin 11.4 g/dL (12.0-15.5) Hematocrit 35.1 % (36.0-47.0) Mean Corpuscular Volume 89 fL (79-100) Mean Corpuscular Hemoglobin 29 pg (25-35) Mean Corpuscular Hemoglobin Concent 33 g/dL (31-37) Red Cell Distribution Width 14.3 % (11.5-14.5) Platelet Count 557 x10^3/uL (140-400) Neutrophils (%) (Auto) 61 % (31-73) Lymphocytes (%) (Auto) 27 % (24-48) Monocytes (%) (Auto) 8 % (0-9) Eosinophils (%) (Auto) 3 % (0-3) Basophils (%) (Auto) 1 % (0-3) Neutrophils # (Auto) 5.3 x10^3/uL (1.8-7.7) Lymphocytes # (Auto) 2.4 x10^3/uL (1.0-4.8) Monocytes # (Auto) 0.7 x10^3/uL (0.0-1.1) Eosinophils # (Auto) 0.3 x10^3/uL (0.0-0.7) Basophils # (Auto) 0.1 x10^3/uL (0.0-0.2) Creatinine 0.9 mg/dL (0.6-1.0) Estimated GFR (Cockcroft-Gault) 63.9 Vancomycin Level Trough 7.8 mcg/mL (10.0-20.0) Vancomycin Last Dose Date 12/21/2019 Vancomycin Last Dose Time 0400 Clostridium difficile Toxin B Gene Negative (Negative) Laboratory Tests Test 12/22/19 06:00 Clostridium difficile Toxin B Gene Negative (Negative) Medications Active Scripts Medications Dose Route/Sig Max Daily Dose Days Date Category Dose Instructions Clotrimazole 15 Gm Cream..g. 1 Joaquín TP TID 09/04/18 Rx Jayton 5-325 Tablet (Acetaminophen/Hydrocodone Bitart) 1 Each Tablet 1-2 Each PO PRN Q6HRS PRN 09/03/18 Rx as needed for pain Clindamycin Hcl 300 Mg Capsule 1 Cap PO TID 02/16/18 Rx Levaquin (Levofloxacin) 500 Mg Tablet 1 Tab PO DAILY 01/07/17 Rx Zofran Odt (Ondansetron) 4 Mg Tab.rapdis 1 Tab SL PRN Q8HRS PRN 12/28/16 Rx Hydroxyzine Hcl 25 Mg Tablet 1 Tab PO PRN BID PRN 12/28/16 Rx [Vancomycin Hcl] 250 MG/5 ML Solution 250 Mg PO QID 10 12/18/16 Rx Morphine Sulfate 30 Mg Tablet 1 Tab PO TID 12/14/16 Reported Ativan (Lorazepam) 0.5 Mg Tablet 0.5 Mg PO BID 12/03/16 Rx [place] 5-325 Tablet (Acetaminophen/Hydrocodone Bitart) 1 Each Tablet 1 Tab PO PRN Q6HRS PRN 12/03/16 Rx Zofran (Ondansetron Hcl) 4 Mg Tablet 1 Tab PO Q8HRS PRN 11/29/16 Rx Hydrocodone-Apap 10-325 (Hydrocodone Bit/Acetaminophen) 1 Each Tablet 1 Tab PO PRN Q6HRS PRN 10/13/16 Rx Quetiapine Fumarate 25 Mg Tablet 25 Mg PO QHS 10/13/16 Rx Levothyroxine Sodium 112 Mcg Tablet 112 Mcg PO DAILY07 10/13/16 Rx Impression . 1. Pneumonia in a patient who had flu several weeks ago, would recommend treatment for gram-positive and gram-negative pneumonia. 2. Acute exacerbation of chronic obstructive pulmonary disease. 3. Abnormal x-ray secondary to pneumonia. 4. Leukocytosis-resolved 5. Tobacco dependence. 6. Psychosis. 7. Anxiety. 8. Upper extremity numbness Plan . ss working on disposition ok to transfer in am 2/4 Supplemental oxygen cont. IV abx , culture NGTD bc negative NEBS/ IS at bedside-- educated on the importance of use influenza (-) cont. psyh medications abdominal pain per PCP--- resolved today BLE numbness per PCP D/W RN ALYX CRUM MD Dec 22, 2019 16:58
[2019-12-22] MEDS: ACETAMINOPHEN/CODEINE 300/30MG TABLET. PO PRN (17:03)
--- NOTE | 2019-12-22 18:29 | NUR ---
Pain med info from [id number]: when passing meds to pt, she was on the phone. She handed the phone over and the pt's sister in law was on the line and stated "she is fooling you guys, she does not need all of the medications that make her loopy". She stated the pt will continue to ask for pain medication as long as it is given to her. Informed sister in law that we are no longer administering IV medication and she is only getting oral meds at this time. Will continue to monitor pt's status.
[2019-12-22 19:00] VITALS: BP 130/73
[2019-12-22] MEDS: QUEtiapine 25 MG TABLET. PO SCH (21:52)
[2019-12-22] MEDS: TEMAZEPAM 7.5 MG CAPSULE PO PRN (21:52)
[2019-12-22 23:00] VITALS: BP 125/80
[2019-12-23 03:00] VITALS: BP 121/76
[2019-12-23] MEDS: LEVOTHYROXINE 112 MCG TABLET PO SCH (06:25)
[2019-12-23 07:00] VITALS: BP 108/53
[2019-12-23] MEDS: IPRATRPIUM/ALBUTEROL 0.5/2.5MG 3 ML NEBU. NEB SCH ×3 (08:00→16:00)
--- NOTE | 2019-12-23 08:34 | PDOC ---
PROGRESS NOTES Chief Complaint Chief Complaint A/P: HCAP,. gram pos gram neg GENERALIZED WEAKNESS Malrnourished, cachexia - BMI 17 SEPSIS, POA no organ dysfcn Elevated lactate 2,5 - on admit, resolved COPD hx, smoker - stills smokes few cigars HTN, controlled Psychosis on olanzapine etc Discharge Recommendations - Retirement Unit History of Present Illness History of Present Illness Ms Amor is a 59 yo F w/ PMHx HTN, anxiety, psychosis NOS, COPD (undiagnosed), tobacco dependence that has been sick now for well over 2 weeks. She presented at [facility], was diagnosed with flu and discharged home with supportive care. She presented she has a cough, mostly productive of discolored sputum. She does not think she has underlying COPD. She has been sick to her stomach. No chest pain or pressure. No hemoptysis. She is not up-to-date on her flu and pneumonia vaccinations. She had a chest x-ray, which revealed a left infrahilar infiltrate. The patient denies nausea, vomiting, or diarrhea. 2/3: NO acute issues overnight. She is continually requesting IV pain medications and "everything" to be IV. She is sleeping, easily awakened. Ate 100% of her breakfast tray. Tells me her hands are burning. Tearful today, c/o bilateral hand burning, asking me to cure it. Begging not to be discharged home. Per her family this frequently happens. Plan: Change zosyn to augmentin PT OT Placement is likely necessary, will refer to acute rehab. If she refuses to work with therapy I have advised her she will be discharged home. Vitals Vitals Vital Signs Date Time Temp Pulse Resp B/P (MAP) Pulse Ox O2 Delivery O2 Flow Rate FiO2 12/23/19 07:00 98.1 76 17 108/53 (71) 100 Nasal Cannula 2.0 98.1 Physical Exam General: Alert, Oriented X3, Cooperative, No acute distress, Other (doubled up, feels cold) Heart: Regular rate, Normal S1 Lungs: Wheezing, Other (Decresed in BL BS ) Abdomen: Normal bowel sounds, Soft Extremities: No clubbing, No cyanosis, No edema, Normal pulses, No tenderness/swelling Skin: No rashes, No breakdown, No significant lesion Assessment and Plan Assessmemt and Plan Problems Medical Problems: (1) Pneumonia Status: Acute Comment Review of Relevant I have reviewed the following items prince (where applicable) has been applied. Labs Laboratory Tests Test 12/21/19 15:40 12/22/19 06:00 Vancomycin Level Trough 7.8 mcg/mL (10.0-20.0) Vancomycin Last Dose Date 12/21/2019 Vancomycin Last Dose Time 0400 Clostridium difficile Toxin B Gene Negative (Negative) Microbiology 12/18/19 Blood Culture - Preliminary, Resulted NO GROWTH AFTER 4 DAYS Medications Current Medications Prednisone (Prednisone) 50 mg 1X ONCE PO Last administered on 12/18/19at 09:54; Start 12/18/19 at 09:30; Stop 12/18/19 at 09:31; Status DC Albuterol Sulfate (Ventolin Neb Soln) 2.5 mg 1X ONCE NEB Last administered on 12/18/19at 09:39; Start 12/18/19 at 10:00; Stop 12/18/19 at 10:01; Status DC Doxycycline Hyclate 100 mg/ Dextrose 100 ml @ 50 mls/hr 1X ONCE IV Last administered on 12/18/19at 10:32; Start 12/18/19 at 10:30; Stop 12/18/19 at 12:29; Status DC Ceftriaxone Sodium (Rocephin) 1 gm 1X ONCE IVP Last administered on 12/18/19at 10:27; Start 12/18/19 at 10:00; Stop 12/18/19 at 10:01; Status DC Ondansetron HCl (Zofran) 4 mg PRN Q8HRS PRN IV NAUSEA/VOMITING; Start 12/18/19 at 11:30; Stop 12/18/19 at 13:17; Status DC Fentanyl Citrate (Fentanyl 2ml Vial) 50 mcg PRN Q1HR PRN IV PAIN Last administered on 12/18/19at 15:31; Start 12/18/19 at 11:30; Stop 12/19/19 at 11:29; Status DC Acetaminophen (Tylenol) 650 mg PRN Q4HRS PRN PO FEVER; Start 12/18/19 at 11:30; Stop 12/18/19 at 13:17; Status DC Albuterol/ Ipratropium (Duoneb) 3 ml RTQID NEB ; Start 12/18/19 at 12:00; Stop 12/18/19 at 13:17; Status DC Sodium Chloride 1,000 ml @ 1,000 mls/hr 1X ONCE IV Last administered on 12/18/19at 11:58; Start 12/18/19 at 11:30; Stop 12/18/19 at 12:29; Status DC Sodium Chloride 1,000 ml @ 1,000 mls/hr 1X ONCE IV Last administered on 12/18/19at 14:22; Start 12/18/19 at 11:30; Stop 12/18/19 at 12:29; Status DC Albuterol/ Ipratropium (Duoneb) 3 ml RTQID NEB Last administered on 12/20/19at 07:17; Start 12/18/19 at 16:00 Ondansetron HCl (Zofran) 4 mg PRN Q6HRS PRN IVP NAUSEA/VOMITING Last administered on 12/18/19at 15:24; Start 12/18/19 at 13:15; Stop 12/22/19 at 11:45; Status DC Acetaminophen (Tylenol) 500 mg PRN Q6HRS PRN PO MILD PAIN / TEMP; Start 12/18/19 at 13:15 Acetaminophen/ Codeine Phosphate (Tylenol #3) 1 tab PRN Q6HRS PRN PO MODERATE PAIN (1st Choice) Last administered on 12/22/19at 17:03; Start 12/18/19 at 13:15 Benzonatate (Tessalon Perle) 100 mg [id number] PO Last administered on 12/22/19at 21:52; Start 12/18/19 at 14:00 Guaifenesin (Robitussin Dm) 10 ml PRN Q6HRS PRN PO COUGH Last administered on 12/18/19at 15:20; Start 12/18/19 at 13:15 Temazepam (Restoril) 7.5 mg PRN QHS PRN PO INSOMNIA Last administered on 12/22/19at 21:52; Start 12/18/19 at 13:15 Clonidine HCl (Catapres) 0.1 mg PRN Q1HR PRN PO HYPERTENSION; Start 12/18/19 at 13:15 Ceftriaxone Sodium (Rocephin) 1 gm Q24H IVP ; Start 12/19/19 at 10:00; Stop 11/21 at 13:22; Status DC Azithromycin (Zithromax) 500 mg 1X ONCE PO ; Start 12/18/19 at 13:15; Stop 12/18/19 at 13:22; Status DC Azithromycin (Zithromax) 250 mg DAILY PO ; Start 12/19/19 at 09:00; Stop 12/18/19 at 13:22; Status DC Clotrimazole (Lotrimin) 1 joaquín TID TP Last administered on 12/22/19 21:53; Start 12/18/19 at 14:00 Acetaminophen/ Hydrocodone Bitart (Lortab 5/325) 1 tab PRN Q6HRS PRN PO MODERATE PAIN (2nd Choice) Last administered on 12/22/19 22:19; Start 12/18/19 at 13:15 Hydroxyzine HCl (Atarax) 25 mg PRN BID PRN PO ANXIETY / AGITATION Last administered on 12/22/19 04:37; Start 12/18/19 at 13:15 Levothyroxine Sodium (Synthroid) 112 mcg DAILY06 PO Last administered on 12/23/19at 06:25; Start 12/19/19 at 06:00 Lorazepam (Ativan) 0.5 mg BID PO Last administered on 12/22/19 21:52; Start 12/18/19 at 21:00 Ondansetron HCl (Zofran Odt) 4 mg PRN Q8HRS PRN PO NAUSEA Last administered on 12/20/19 19:46; Start 12/18/19 at 13:15 Quetiapine Fumarate (SEROquel) 25 mg QHS PO Last administered on 12/22/19 21:52; Start 12/18/19 at 21:00 Non-Formulary Medication (Ondansetron Hcl (Zofran)) 1 tab Q8HRS PRN PO NAUSEA; Start 12/18/19 at 13:15; Status UNV Potassium Chloride (Klor-Con) 40 meq 1X ONCE PO Last administered on 12/18/19at 15:22; Start 12/18/19 at 13:15; Stop 12/18/19 at 13:27; Status DC Vancomycin HCl (Vanco Per Pharmacy) 1 each PRN DAILY PRN MC SEE COMMENTS Last administered on 12/21/19 16:31; Start 12/18/19 at 13:30; Stop 12/22/19 at 11:45; Status DC Piperacillin Sod/ Tazobactam Sod (Zosyn Per Pharmacy) 1 each PRN DAILY PRN MC SEE COMMENTS Last administered on 12/19/19at 10:15; Start 12/18/19 at 13:30; Stop 12/22/19 at 11:45; Status DC Nicotine (Nicoderm Cq 21mg) 1 patch PRN DAILY PRN TD SMOKING CESSATION Last administered on 12/21/19at 17:37; Start 12/18/19 at 13:30 Vancomycin HCl 1.25 gm/Sodium Chloride 250 ml @ 167 mls/hr ONCE ONCE IV Last administered on 12/18/19at 14:23; Start 12/18/19 at 14:00; Stop 12/18/19 at 15:29; Status DC Piperacillin Sod/ Tazobactam Sod 4.5 gm/Sodium Chloride 100 ml @ 200 mls/hr Q6HRS IV Last administered on 12/22/19at 06:26; Start 12/18/19 at 14:00; Stop 12/22/19 at 11:45; Status DC Vancomycin HCl 750 mg/Sodium Chloride 250 ml @ 250 mls/hr Q24H IV Last administered on 12/20/19at 16:31; Start 12/19/19 at 14:30; Stop 12/20/19 at 16:56; Status DC Vancomycin HCl (Vancomycin Trough Level) 1 each 1X ONCE MC Last administered on 12/20/19at 14:00; Start 12/20/19 at 14:00; Stop 12/20/19 at 14:01; Status DC Lactobacillus Rhamnosus (Culturelle) 1 cap BID PO Last administered on 12/22/19at 21:53; Start 12/19/19 at 21:00 Nystatin (Nystop) 1 joaquín BID TP Last administered on 12/22/19at 21:53; Start 12/19/19 at 21:00 Vancomycin HCl 750 mg/Sodium Chloride 250 ml @ 250 mls/hr Q12H IV Last administered on 12/21/19at 04:04; Start 12/21/19 at 04:00; Stop 12/21/19 at 16:11; Status DC Vancomycin HCl (Vancomycin Trough Level) 1 each 1X ONCE MC Last administered on 12/21/19at 15:30; Start 12/21/19 at 15:30; Stop 12/21/19 at 15:31; Status DC Vancomycin HCl 750 mg/Sodium Chloride 250 ml @ 250 mls/hr Q8H IV Last administered on 12/22/19at 07:48; Start 12/21/19 at 16:00; Stop 12/22/19 at 11:45; Status DC Lorazepam (Ativan Inj) 1 mg PRN Q6HRS PRN IVP ANXIETY / AGITATION Last administered on 12/22/19at 06:27; Start 12/21/19 at 23:00; Stop 12/22/19 at 11:45; Status DC Amoxicillin/ Clavulanate Potassium (Augmentin 875/ 125mg) 1 tab BID PO Last administered on 12/22/19at 21:52; Start 12/22/19 at 12:00 Active Scripts Active Clotrimazole 15 Gm Cream..g. 1 Joaquín TP TID [place] 5-325 Tablet (Acetaminophen/Hydrocodone Bitart) 1 Each Tablet 1-2 Each PO PRN Q6HRS PRN as needed for pain Clindamycin Hcl 300 Mg Capsule 1 Cap PO TID Levaquin (Levofloxacin) 500 Mg Tablet 1 Tab PO DAILY Zofran Odt (Ondansetron) 4 Mg Tab.rapdis 1 Tab SL PRN Q8HRS PRN Hydroxyzine Hcl 25 Mg Tablet 1 Tab PO PRN BID PRN [Vancomycin Hcl] 250 MG/5 ML Solution 250 Mg PO QID 10 Days Ativan (Lorazepam) 0.5 Mg Tablet 0.5 Mg PO BID [place] 5-325 Tablet (Acetaminophen/Hydrocodone Bitart) 1 Each Tablet 1 Tab PO PRN Q6HRS PRN Zofran (Ondansetron Hcl) 4 Mg Tablet 1 Tab PO Q8HRS PRN Hydrocodone-Apap 10-325 (Hydrocodone Bit/Acetaminophen) 1 Each Tablet 1 Tab PO PRN Q6HRS PRN Quetiapine Fumarate 25 Mg Tablet 25 Mg PO QHS Levothyroxine Sodium 112 Mcg Tablet 112 Mcg PO DAILY07 Reported Morphine Sulfate 30 Mg Tablet 1 Tab PO TID Vitals/I & O Vital Sign - Last 24 Hours 12/22/19 12/22/19 12/22/19 12/22/19 11:00 15:00 17:03 18:03 Temp 98.6 98.3 98.6 98.3 Pulse 79 104 Resp 18 18 B/P (MAP) 123/67 (85) 123/69 (87) Pulse Ox 92 94 O2 Delivery Nasal Cannula Nasal Cannula Nasal Cannula Nasal Cannula O2 Flow Rate 2.0 2.0 2.0 2.0 12/22/19 12/22/19 12/22/19 12/22/19 19:00 20:00 22:19 23:00 Temp 97.9 97.9 97.9 97.9 Pulse 89 98 Resp 20 B/P (MAP) 130/73 (92) 125/80 (95) Pulse Ox 98 94 96 O2 Delivery Nasal Cannula Nasal Cannula Nasal Cannula Nasal Cannula O2 Flow Rate 2.0 2.0 2.0 2.0 12/22/19 12/23/19 12/23/19 23:19 03:00 07:00 Temp 97.9 98.1 97.9 98.1 Pulse 87 76 Resp 17 B/P (MAP) 121/76 (91) 108/53 (71) Pulse Ox 96 95 100 O2 Delivery Nasal Cannula Nasal Cannula Nasal Cannula O2 Flow Rate 2.0 2.0 2.0 Intake and Output 12/22/19 12/22/19 12/23/19 15:00 23:00 07:00 Intake Total 500 ml 300 ml Balance 500 ml 300 ml VANI ALONSO MD Dec 23, 2019 08:33
[2019-12-23] MEDS: CLOTRIMAZOLE 1% TOPICAL CREAM 15GM TUBE. TP SCH ×3 (09:00→21:00)
[2019-12-23] MEDS: NYSTATIN TOPICAL POWDER 15GM BOTTLE. TP SCH ×2 (09:00→20:54)
[2019-12-23] MEDS: BENZONATATE 100 MG CAPSULE. PO SCH ×3 (10:59→20:55)
[2019-12-23] MEDS: LORazepam 0.5 MG TABLET PO SCH (10:59)
[2019-12-23] MEDS: AMOXICILLIN/K CLAV 875/125MG TABLET. PO SCH ×2 (10:59→20:55)
[2019-12-23] MEDS: LACTOBACILLUS RHAMNOSUS GG 1 CAPSULE. PO SCH ×2 (10:59→20:54)
[2019-12-23 11:00] VITALS: BP 106/51
--- NOTE | 2019-12-23 11:02 | NUR ---
SW following. Discussed with RN, pt possibly discharging home today. Cassie Vera RN meeting with pt to determine if pt agreeable to home health. Pt has declined SNU. GERALDO will continue to follow. Addendum: 12/23/19 at 1440 by JULIANN GERBER SW Dr. Hill spoke with pt, pt became agreeable to SNU. Pt has medicaid so will not be able to find facility to take pt. Pt could go to acute rehab, however pt has been refusing to work with therapy, it is unlikely she will be accepted. Cassie Vera RN met with pt, pt now refusing to discharge home with home health as she thinks she is going to rehab. PT/OT to work with pt for updated therapy notes. If pt does not work with therapy, the only option from social work standpoint is home with home health or assisted care if pt is agreeable. GERALDO will continue to follow.
[2019-12-23] MEDS: ACETAMINOPHEN/CODEINE 300/30MG TABLET. PO PRN ×2 (12:03→19:26)
[2019-12-23] MEDS: GABAPENTIN 100 MG CAPSULE. PO SCH ×3 (12:03→20:55)
--- NOTE | 2019-12-23 12:37 | PDOC ---
PULMONARY PROGRESS NOTES Subjective nc o2 no complaints Vitals Vital Signs Date Time Temp Pulse Resp B/P (MAP) Pulse Ox O2 Delivery O2 Flow Rate FiO2 12/23/19 12:03 Nasal Cannula 2.0 12/23/19 07:00 98.1 76 17 108/53 (71) 100 98.1 ROS: No Nausea, No Chest Pain, No Increase Cough General: Alert, Oriented X4 Lungs: Other (Decresed in BL BS ) Cardiovascular: S1, S2 Abdomen: Soft, Non-tender Neuro Exam: Alert Extremities: No Edema Skin: Warm, Dry Labs Laboratory Tests Test 12/21/19 15:40 12/22/19 06:00 Vancomycin Level Trough 7.8 mcg/mL (10.0-20.0) Vancomycin Last Dose Date 12/21/2019 Vancomycin Last Dose Time 0400 Clostridium difficile Toxin B Gene Negative (Negative) Medications Active Scripts Medications Dose Route/Sig Max Daily Dose Days Date Category Dose Instructions Clotrimazole 15 Gm Cream..g. 1 Joaquín TP TID 09/04/18 Rx [place] 5-325 Tablet (Acetaminophen/Hydrocodone Bitart) 1 Each Tablet 1-2 Each PO PRN Q6HRS PRN 09/03/18 Rx as needed for pain Clindamycin Hcl 300 Mg Capsule 1 Cap PO TID 02/16/18 Rx Levaquin (Levofloxacin) 500 Mg Tablet 1 Tab PO DAILY 01/07/17 Rx Zofran Odt (Ondansetron) 4 Mg Tab.rapdis 1 Tab SL PRN Q8HRS PRN 12/28/16 Rx Hydroxyzine Hcl 25 Mg Tablet 1 Tab PO PRN BID PRN 12/28/16 Rx [Vancomycin Hcl] 250 MG/5 ML Solution 250 Mg PO QID 10 12/18/16 Rx Morphine Sulfate 30 Mg Tablet 1 Tab PO TID 12/14/16 Reported Ativan (Lorazepam) 0.5 Mg Tablet 0.5 Mg PO BID 12/03/16 Rx [place] 5-325 Tablet (Acetaminophen/Hydrocodone Bitart) 1 Each Tablet 1 Tab PO PRN Q6HRS PRN 12/03/16 Rx Zofran (Ondansetron Hcl) 4 Mg Tablet 1 Tab PO Q8HRS PRN 11/29/16 Rx Hydrocodone-Apap 10-325 (Hydrocodone Bit/Acetaminophen) 1 Each Tablet 1 Tab PO PRN Q6HRS PRN 10/13/16 Rx Quetiapine Fumarate 25 Mg Tablet 25 Mg PO QHS 10/13/16 Rx Levothyroxine Sodium 112 Mcg Tablet 112 Mcg PO DAILY07 10/13/16 Rx Impression . 1. Pneumonia in a patient who had flu several weeks ago, suspected gram- positive and gram-negative pneumonia. 2. Acute exacerbation of chronic obstructive pulmonary disease. 3. Abnormal x-ray secondary to pneumonia./ large hiatal hernia 4. Leukocytosis-resolved 5. Tobacco dependence. 6. Psychosis. 7. Anxiety. 8. Upper extremity numbness Plan . ss working on disposition ok to transfer Supplemental oxygen cont. IV abx , culture NGTD bc negative NEBS/ IS at bedside-- educated on the importance of use influenza (-) cont. psyh medications abdominal pain per PCP--- resolved today BLE numbness per PCP D/W SANA TAMEZ MD Dec 23, 2019 12:37
[2019-12-23] MEDS ORDERED: HYDROcodone/APAP 5/325MG 1 TAB TABLET PO PRN (14:00)
[2019-12-23 15:00] VITALS: BP 108/54
[2019-12-23] MEDS: NICOTINE 21MG PATCH. TD PRN (15:25)
[2019-12-23] MEDS: hydrOXYzine 25 MG TABLET PO PRN (15:25)
--- NOTE | 2019-12-23 17:04 | NUR ---
Gabapentin: Took pt 1600 dose, pt stated she did not want it. "Can I take it later, I'm tired?? Non-admin dose. Pt was up in chair watching tv, snacking. Pt was informed next dose is due 2099.
--- NOTE | 2019-12-23 17:38 | NUR ---
Pt has refused all nebulizer txs so txs dc'd [facility] [employer]
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
[2019-12-23 19:00] VITALS: BP 124/81
[2019-12-23] MEDS: LORazepam 0.5 MG TABLET PO PRN (20:54)
[2019-12-23] MEDS: TEMAZEPAM 7.5 MG CAPSULE PO PRN (20:55)
[2019-12-23] MEDS: QUEtiapine 25 MG TABLET. PO SCH (20:55)
[2019-12-23 23:00] VITALS: BP 116/60
[2019-12-24 03:00] VITALS: BP 92/72
[2019-12-24] MEDS: LEVOTHYROXINE 112 MCG TABLET PO SCH (03:41)
[2019-12-24] MEDS: ACETAMINOPHEN/CODEINE 300/30MG TABLET. PO PRN ×3 (03:42→15:14)
[2019-12-24 07:00] VITALS: BP 107/67
[2019-12-24] MEDS: CLOTRIMAZOLE 1% TOPICAL CREAM 15GM TUBE. TP SCH ×2 (09:00→14:00)
[2019-12-24] MEDS: NYSTATIN TOPICAL POWDER 15GM BOTTLE. TP SCH (09:33)
[2019-12-24] MEDS: AMOXICILLIN/K CLAV 875/125MG TABLET. PO SCH (09:33)
[2019-12-24] MEDS: BENZONATATE 100 MG CAPSULE. PO SCH ×2 (09:33→15:14)
[2019-12-24] MEDS: GABAPENTIN 100 MG CAPSULE. PO SCH ×2 (09:34→15:13)
[2019-12-24] MEDS: LACTOBACILLUS RHAMNOSUS GG 1 CAPSULE. PO SCH (09:34)
--- NOTE | 2019-12-24 10:04 | PDOC ---
PROGRESS NOTES Chief Complaint Chief Complaint A/P: HCAP,. gram pos gram neg - 5 days empiric vancomycin and zosyn, transitioned to Augmentin PO GENERALIZED WEAKNESS Malrnourished, cachexia - BMI 17 SEPSIS, POA no organ dysfcn Elevated lactate 2,5 - on admit, resolved COPD hx, smoker - stills smokes few cigars HTN, controlled Psychosis on olanzapine etc Discharge Recommendations - home with home health History of Present Illness History of Present Illness Ms Amor is a 59 yo F w/ PMHx HTN, anxiety, psychosis NOS, COPD (undiagnosed), tobacco dependence that has been sick now for well over 2 weeks. She presented at [facility], was diagnosed with flu and discharged home with supportive care. She presented she has a cough, mostly productive of discolored sputum. She does not think she has underlying COPD. She has been sick to her stomach. No chest pain or pressure. No hemoptysis. She is not up-to-date on her flu and pneumonia vaccinations. She had a chest x-ray, which revealed a left infrahilar infiltrate. The patient denies nausea, vomiting, or diarrhea. 2/3: NO acute issues overnight. She is continually requesting IV pain medications and "everything" to be IV. She is sleeping, easily awakened. Ate 100% of her breakfast tray. Tells me her hands are burning. 2/4: Tearful today, c/o bilateral hand burning, asking me to cure it. Begging not to be discharged home. Per her family this frequently happens. Seen in bed today, was nude on commode prior to my arrival, ambulated back to bed without assistance. Tells me she cannot go home as her bathtub is "full of junk" and her toilet does not flush well. She had refused to work with physical and occupational therapy and has been refusing breathing treatments. I have informed her she is on PO medications and as she is refusing treatments in the hospital her treatment would be better completed at home. Have d/w her sister and [id number] who have informed staff that the patient is "playing us for medications". I have recommended home health and f/u which was arranged by [facility] after her last discharge. Plan: Change zosyn to augmentin PT OT Placement may eventually be necessary. As she refuses to work with therapy I have advised her she will be discharged home, offered home health 6 minute walk - no O2 requirements Vitals Vitals Vital Signs Date Time Temp Pulse Resp B/P (MAP) Pulse Ox O2 Delivery O2 Flow Rate FiO2 12/24/19 09:34 94 Nasal Cannula 2.0 12/24/19 07:00 98.0 72 18 107/67 (80) 98.0 Physical Exam General: Alert, Oriented X3, Cooperative, No acute distress, Other (doubled up, feels cold) Heart: Regular rate, Normal S1 Lungs: Other (Decresed in BL BS ) Abdomen: Normal bowel sounds, Soft Extremities: No clubbing, No cyanosis, No edema, Normal pulses, No tenderness/swelling Skin: No rashes, No breakdown, No significant lesion Assessment and Plan Assessmemt and Plan Problems Medical Problems: (1) Pneumonia Status: Acute Comment Review of Relevant I have reviewed the following items prince (where applicable) has been applied. Labs Microbiology 12/18/19 Blood Culture - Final, Complete NO GROWTH AFTER 5 DAYS Medications Current Medications Prednisone (Prednisone) 50 mg 1X ONCE PO Last administered on 12/18/19at 09:54; Start 12/18/19 at 09:30; Stop 12/18/19 at 09:31; Status DC Albuterol Sulfate (Ventolin Neb Soln) 2.5 mg 1X ONCE NEB Last administered on 12/18/19at 09:39; Start 12/18/19 at 10:00; Stop 12/18/19 at 10:01; Status DC Doxycycline Hyclate 100 mg/ Dextrose 100 ml @ 50 mls/hr 1X ONCE IV Last administered on 12/18/19at 10:32; Start 12/18/19 at 10:30; Stop 12/18/19 at 12:29; Status DC Ceftriaxone Sodium (Rocephin) 1 gm 1X ONCE IVP Last administered on 12/18/19at 10:27; Start 12/18/19 at 10:00; Stop 12/18/19 at 10:01; Status DC Ondansetron HCl (Zofran) 4 mg PRN Q8HRS PRN IV NAUSEA/VOMITING; Start 12/18/19 at 11:30; Stop 12/18/19 at 13:17; Status DC Fentanyl Citrate (Fentanyl 2ml Vial) 50 mcg PRN Q1HR PRN IV PAIN Last administered on 12/18/19at 15:31; Start 12/18/19 at 11:30; Stop 12/19/19 at 11:29; Status DC Acetaminophen (Tylenol) 650 mg PRN Q4HRS PRN PO FEVER; Start 12/18/19 at 11:30; Stop 12/18/19 at 13:17; Status DC Albuterol/ Ipratropium (Duoneb) 3 ml RTQID NEB ; Start 12/18/19 at 12:00; Stop 12/18/19 at 13:17; Status DC Sodium Chloride 1,000 ml @ 1,000 mls/hr 1X ONCE IV Last administered on 12/18/19at 11:58; Start 12/18/19 at 11:30; Stop 12/18/19 at 12:29; Status DC Sodium Chloride 1,000 ml @ 1,000 mls/hr 1X ONCE IV Last administered on 12/18/19at 14:22; Start 12/18/19 at 11:30; Stop 12/18/19 at 12:29; Status DC Albuterol/ Ipratropium (Duoneb) 3 ml RTQID NEB Last administered on 12/20/19at 07:17; Start 12/18/19 at 16:00; Stop 12/23/19 at 17:38; Status DC Ondansetron HCl (Zofran) 4 mg PRN Q6HRS PRN IVP NAUSEA/VOMITING Last administered on 12/18/19at 15:24; Start 12/18/19 at 13:15; Stop 12/22/19 at 11:45; Status DC Acetaminophen (Tylenol) 500 mg PRN Q6HRS PRN PO MILD PAIN / TEMP; Start 12/18/19 at 13:15 Acetaminophen/ Codeine Phosphate (Tylenol #3) 1 tab PRN Q6HRS PRN PO MODERATE PAIN (1st Choice) Last administered on 12/23/19at 12:03; Start 12/18/19 at 13:15; Stop 12/23/19 at 13:47; Status DC Benzonatate (Tessalon Perle) 100 mg [id number] PO Last administered on 12/24/19at 09:33; Start 12/18/19 at 14:00 Guaifenesin (Robitussin Dm) 10 ml PRN Q6HRS PRN PO COUGH Last administered on 12/18/19at 15:20; Start 12/18/19 at 13:15 Temazepam (Restoril) 7.5 mg PRN QHS PRN PO INSOMNIA Last administered on 12/23/19at 20:55; Start 12/18/19 at 13:15 Clonidine HCl (Catapres) 0.1 mg PRN Q1HR PRN PO HYPERTENSION; Start 12/18/19 at 13:15 Ceftriaxone Sodium (Rocephin) 1 gm Q24H IVP ; Start 12/19/19 at 10:00; Stop 12/18/19 at 13:22; Status DC Azithromycin (Zithromax) 500 mg 1X ONCE PO ; Start 12/18/19 at 13:15; Stop 12/18/19 at 13:22; Status DC Azithromycin (Zithromax) 250 mg DAILY PO ; Start 12/19/19 at 09:00; Stop 12/18/19 at 13:22; Status DC Clotrimazole (Lotrimin) 1 joaquín TID TP Last administered on 12/23/19at 15:25; Start 12/18/19 at 14:00 Acetaminophen/ Hydrocodone Bitart (Lortab 5/325) 1 tab PRN Q6HRS PRN PO MODERATE PAIN (2nd Choice) Last administered on 12/22/19at 22:19; Start 12/18/19 at 13:15; Stop 12/23/19 at 11:17; Status DC Hydroxyzine HCl (Atarax) 25 mg PRN BID PRN PO ANXIETY / AGITATION Last administered on 12/23/19at 15:25; Start 12/18/19 at 13:15 Levothyroxine Sodium (Synthroid) 112 mcg DAILY06 PO Last administered on 12/24/19at 03:41; Start 12/19/19 at 06:00 Lorazepam (Ativan) 0.5 mg BID PO Last administered on 12/23/19at 10:59; Start 12/18/19 at 21:00; Stop 12/23/19 at 11:17; Status DC Ondansetron HCl (Zofran Odt) 4 mg PRN Q8HRS PRN PO NAUSEA Last administered on 12/20/19at 19:46; Start 12/18/19 at 13:15 Quetiapine Fumarate (SEROquel) 25 mg QHS PO Last administered on 12/23/19at 20:55; Start 12/18/19 at 21:00 Non-Formulary Medication (Ondansetron Hcl (Zofran)) 1 tab Q8HRS PRN PO NAUSEA; Start 12/18/19 at 13:15; Status UNV Potassium Chloride (Klor-Con) 40 meq 1X ONCE PO Last administered on 12/18/19at 15:22; Start 12/18/19 at 13:15; Stop 12/18/19 at 13:27; Status DC Vancomycin HCl (Vanco Per Pharmacy) 1 each PRN DAILY PRN MC SEE COMMENTS Last administered on 12/21/19at 16:31; Start 12/18/19 at 13:30; Stop 12/22/19 at 11:45; Status DC Piperacillin Sod/ Tazobactam Sod (Zosyn Per Pharmacy) 1 each PRN DAILY PRN MC SEE COMMENTS Last administered on 12/19/19at 10:15; Start 12/18/19 at 13:30; Stop 12/22/19 at 11:45; Status DC Nicotine (Nicoderm Cq 21mg) 1 patch PRN DAILY PRN TD SMOKING CESSATION Last administered on 12/23/19at 15:25; Start 12/18/19 at 13:30 Vancomycin HCl 1.25 gm/Sodium Chloride 250 ml @ 167 mls/hr ONCE ONCE IV Last administered on 12/18/19at 14:23; Start 12/18/19 at 14:00; Stop 12/18/19 at 15:29; Status DC Piperacillin Sod/ Tazobactam Sod 4.5 gm/Sodium Chloride 100 ml @ 200 mls/hr Q6HRS IV Last administered on 12/22/19at 06:26; Start 12/18/19 at 14:00; Stop 12/22/19 at 11:45; Status DC Vancomycin HCl 750 mg/Sodium Chloride 250 ml @ 250 mls/hr Q24H IV Last administered on 12/20/19at 16:31; Start 12/19/19 at 14:30; Stop 12/20/19 at 16:56; Status DC Vancomycin HCl (Vancomycin Trough Level) 1 each 1X ONCE MC Last administered on 12/20/19at 14:00; Start 12/20/19 at 14:00; Stop 12/20/19 at 14:01; Status DC Lactobacillus Rhamnosus (Culturelle) 1 cap BID PO Last administered on 12/24/19 09:34; Start 12/19/19 at 21:00 Nystatin (Nystop) 1 joaquín BID TP Last administered on 12/24/19 09:33; Start 12/19/19 at 21:00 Vancomycin HCl 750 mg/Sodium Chloride 250 ml @ 250 mls/hr Q12H IV Last administered on 12/21/19at 04:04; Start 12/21/19 at 04:00; Stop 12/21/19 at 16:11; Status DC Vancomycin HCl (Vancomycin Trough Level) 1 each 1X ONCE MC Last administered on 12/21/19 15:30; Start 12/21/19 at 15:30; Stop 12/21/19 at 15:31; Status DC Vancomycin HCl 750 mg/Sodium Chloride 250 ml @ 250 mls/hr Q8H IV Last administered on 12/22/19at 07:48; Start 12/21/19 at 16:00; Stop 12/22/19 at 11:45; Status DC Lorazepam (Ativan Inj) 1 mg PRN Q6HRS PRN IVP ANXIETY / AGITATION Last administered on 12/22/19 06:27; Start 12/21/19 at 23:00; Stop 12/22/19 at 11:45; Status DC Amoxicillin/ Clavulanate Potassium (Augmentin 875/ 125mg) 1 tab BID PO Last administered on 12/24/19 09:33; Start 12/22/19 at 12:00 Acetaminophen/ Hydrocodone Bitart (Lortab 5/325) 1 tab PRN BID PRN PO MODERATE PAIN (2nd Choice); Start 12/23/19 at 14:00; Stop 12/23/19 at 13:39; Status DC Lorazepam (Ativan) 0.5 mg PRN DAILY PRN PO anxiety Last administered on 12/23/19 20:54; Start 12/23/19 at 11:15 Gabapentin (Neurontin) 100 mg TID PO Last administered on 12/24/19 09:34; St art 12/23/19 at 11:30 Acetaminophen/ Codeine Phosphate (Tylenol #3) 1 tab PRN Q6HRS PRN PO MODERATE PAIN Last administered on 2/5/20at 09:34; Start 12/23/19 at 13:45 Active Scripts Active Clotrimazole 15 Gm Cream..g. 1 Joaquín TP TID [place] 5-325 Tablet (Acetaminophen/Hydrocodone Bitart) 1 Each Tablet 1-2 Each PO PRN Q6HRS PRN as needed for pain Clindamycin Hcl 300 Mg Capsule 1 Cap PO TID Levaquin (Levofloxacin) 500 Mg Tablet 1 Tab PO DAILY Zofran Odt (Ondansetron) 4 Mg Tab.rapdis 1 Tab SL PRN Q8HRS PRN Hydroxyzine Hcl 25 Mg Tablet 1 Tab PO PRN BID PRN [Vancomycin Hcl] 250 MG/5 ML Solution 250 Mg PO QID 10 Days Ativan (Lorazepam) 0.5 Mg Tablet 0.5 Mg PO BID [place] 5-325 Tablet (Acetaminophen/Hydrocodone Bitart) 1 Each Tablet 1 Tab PO PRN Q6HRS PRN Zofran (Ondansetron Hcl) 4 Mg Tablet 1 Tab PO Q8HRS PRN Hydrocodone-Apap 10-325 (Hydrocodone Bit/Acetaminophen) 1 Each Tablet 1 Tab PO PRN Q6HRS PRN Quetiapine Fumarate 25 Mg Tablet 25 Mg PO QHS Levothyroxine Sodium 112 Mcg Tablet 112 Mcg PO DAILY07 Reported Morphine Sulfate 30 Mg Tablet 1 Tab PO TID Vitals/I & O Vital Sign - Last 24 Hours 12/23/19 12/23/19 12/23/19 12/23/19 11:00 12:03 15:00 19:00 Temp 98.2 97.9 98.5 98.2 97.9 98.5 Pulse 72 79 107 Resp 17 B/P (MAP) 106/51 (69) 108/54 (72) 124/81 (95) Pulse Ox 99 98 94 O2 Delivery Nasal Cannula Nasal Cannula Nasal Cannula Nasal Cannula O2 Flow Rate 3.0 2.0 2.0 2.0 12/23/19 12/23/19 12/23/19 12/23/19 19:10 19:26 20:25 23:00 Temp 98.6 98.6 Pulse 94 Resp 20 18 17 B/P (MAP) 116/60 (78) Pulse Ox 92 O2 Delivery Nasal Cannula Nasal Cannula Nasal Cannula Nasal Cannula O2 Flow Rate 2.0 2.0 2.0 2.0 12/24/19 12/24/19 12/24/19 12/24/19 03:00 03:42 04:40 07:00 Temp 98.6 98.0 98.6 98.0 Pulse 92 72 Resp 17 19 17 18 B/P (MAP) 92/72 (79) 107/67 (80) Pulse Ox 98 94 O2 Delivery Nasal Cannula Nasal Cannula Nasal Cannula Nasal Cannula O2 Flow Rate 2.0 2.0 2.0 12/24/19 09:34 Pulse Ox 94 O2 Delivery Nasal Cannula O2 Flow Rate 2.0 l Intake and Output 12/23/19 12/23/19 12/24/19 15:00 23:00 07:00 Intake Total 800 ml Balance 800 ml VANI ALONSO MD Dec 24, 2019 10:04
[2019-12-24 11:00] VITALS: BP 155/53
--- NOTE | 2019-12-24 11:07 | PDOC ---
PULMONARY PROGRESS NOTES Subjective nc o2 no complaints Vitals Vital Signs Date Time Temp Pulse Resp B/P (MAP) Pulse Ox O2 Delivery O2 Flow Rate FiO2 12/24/19 09:34 94 Nasal Cannula 2.0 12/24/19 07:00 98.0 72 18 107/67 (80) 98.0 ROS: No Nausea, No Chest Pain, No Increase Cough General: Alert, Oriented X4 Lungs: Other (Decresed in BL BS ) Cardiovascular: S1, S2 Abdomen: Soft, Non-tender Neuro Exam: Alert Extremities: No Edema Skin: Warm, Dry Medications Active Scripts Medications Dose Route/Sig Max Daily Dose Days Date Category Dose Instructions Clotrimazole 15 Gm Cream..g. 1 Joaquín TP TID 09/04/18 Rx [place]er[place] 5-325 Tablet (Acetaminophen/Hydrocodone Bitart) 1 Each Tablet 1-2 Each PO PRN Q6HRS PRN 09/03/18 Rx as needed for pain Clindamycin Hcl 300 Mg Capsule 1 Cap PO TID 02/16/18 Rx Levaquin (Levofloxacin) 500 Mg Tablet 1 Tab PO DAILY 01/07/17 Rx Zofran Odt (Ondansetron) 4 Mg Tab.rapdis 1 Tab SL PRN Q8HRS PRN 12/28/16 Rx Hydroxyzine Hcl 25 Mg Tablet 1 Tab PO PRN BID PRN 12/28/16 Rx [Vancomycin Hcl] 250 MG/5 ML Solution 250 Mg PO QID 10 12/18/16 Rx Morphine Sulfate 30 Mg Tablet 1 Tab PO TID 12/14/16 Reported Ativan (Lorazepam) 0.5 Mg Tablet 0.5 Mg PO BID 12/03/16 Rx Nerinx 5-325 Tablet (Acetaminophen/Hydrocodone Bitart) 1 Each Tablet 1 Tab PO PRN Q6HRS PRN 12/03/16 Rx Zofran (Ondansetron Hcl) 4 Mg Tablet 1 Tab PO Q8HRS PRN 11/29/16 Rx Hydrocodone-Apap 10-325 (Hydrocodone Bit/Acetaminophen) 1 Each Tablet 1 Tab PO PRN Q6HRS PRN 10/13/16 Rx Quetiapine Fumarate 25 Mg Tablet 25 Mg PO QHS 10/13/16 Rx Levothyroxine Sodium 112 Mcg Tablet 112 Mcg PO DAILY07 10/13/16 Rx Impression . 1. Pneumonia in a patient who had flu several weeks ago, suspected gram-posit jessica and gram-negative pneumonia. 2. Acute exacerbation of chronic obstructive pulmonary disease. 3. Abnormal x-ray secondary to pneumonia./ large hiatal hernia 4. Leukocytosis-resolved 5. Tobacco dependence. 6. Psychosis. 7. Anxiety. 8. Upper extremity numbness Plan . ss working on disposition ok to transfer Supplemental oxygen cont. abx , culture NGTD bc negative NEBS/ IS at bedside-- educated on the importance of use influenza (-) cont. psyh medications abdominal pain per PCP--- resolved D/W SANA TAMEZ MD Dec 24, 2019 11:07
[2019-12-24] MEDS ORDERED: AMOX1TAB11 PO (11:10)
[2019-12-24] MEDS ORDERED: GABA-585 PO (11:10)
[2019-12-24] MEDS ORDERED: ACET1TAB33 PO (11:10)
[2019-12-24] MEDS ORDERED: HYDR25TA PO (11:10)
--- NOTE | 2019-12-24 11:15 | SNU/HH DC ---
DISCHARGE WITH HOME HEALTH DISCHARGE INFORMATION: Discharge Date: Dec 24, 2019 Final Diagnosis: Problems Medical Problems: (1) Pneumonia Status: Acute Condition on Discharge: Stable CODE STATUS: Code Status: Full HOME HEALTH: Face to Face: I certify this patient is under my care and that I, or a nurse practitioner or physician's clinical research assistant working with me, had a face to face encounter that meets the physician face to face encounter requirements with this patient on 12/24/2019. Medical Complications: COPD RN For Eval/Treatment: Yes Physical Therapy For: Evalulation/Treatment Occupational Therapy For: Evaluation/Treatment Home Health Aide For: Self-care NUCLEAR REACTOR TECHNICIAN For: Community Resources Pt Meets Homebound Status: Limited distance walking POST DISCHARGE ORDERS: Activity Instructions for Disc: No restrictions Weight Bearing Status after Di: No restrictions DIET AFTER DISCHARGE: Regular Wound/Incision Care: No wound care needed CHECKS AFTER DISCHARGE: Checks after discharge: Check blood press - daily TREATMENT/EQUIPMENT ORDERS: Adaptive Equipment Issued: None Discharge Respiratory Equipmen: Oxygen, Nebulizer, MDI CERTIFICATION STATEMENT: Certification Statement: Certification Statement: Based on the above finding, I certify that this patient is confined to the home and needs intermittent [place] [facility] care, physical therapy and/or speech therapy, or continues to need occupational therapy.~ This patient is under my care, and I have initiated the establishment of the plan of care.~ This patient will be followed by myself or a community physician who will periodically review the plan of care. Home Meds Active Scripts Amoxicillin/Potassium Clav (AMOX TR-K CLV 875-125 MG TAB) 1 Each Tablet, 1 TAB PO BID for Pneumonia for 7 Days, #14 TAB Prov:VANI ALONSO MD 12/24/19 Gabapentin (GABAPENTIN ) 100 Mg Capsule, 100 MG PO TID for neuropathy for 30 Days, #90 CAP Prov:VANI ALONSO MD 12/24/19 Acetaminophen With Codeine (ACETAMINOPHEN-COD #3 TABLET) 1 Each Tablet, 1 TAB PO PRN Q6HRS PRN for MODERATE PAIN for 6 Days, #12 TAB Prov:VANI ALONSO MD 12/24/19 Hydroxyzine Hcl (HYDROXYZINE HCL) 25 Mg Tablet, 1 TAB PO PRN BID PRN for ANXIETY / AGITATION for 10 Days, #20 TAB Prov:VANI ALONSO MD 12/24/19 Clotrimazole (CLOTRIMAZOLE) 15 Gm Cream..g., 1 JOE TP TID, #45 GM Prov:FRANK BENITES DO 09/04/18 Ondansetron (ZOFRAN ODT) 4 Mg Tab.rapdis, 1 TAB SL PRN Q8HRS PRN for NAUSEA, #3 TAB Prov:JOCELYN SCOTT MD 12/28/16 Ondansetron Hcl (ZOFRAN) 4 Mg Tablet, 1 TAB PO Q8HRS PRN for NAUSEA, #15 TAB Prov:JULES BANEGAS MD 11/29/16 Quetiapine Fumarate (QUETIAPINE FUMARATE) 25 Mg Tablet, 25 MG PO QHS, #30 TAB- CAP Prov:APRYL BLANC MD 10/13/16 Levothyroxine Sodium (LEVOTHYROXINE SODIUM) 112 Mcg Tablet, 112 MCG PO DAILY07, #30 TAB-CAP Prov:APRYL BLANC MD 10/13/16 Discontinued Reported Medications Morphine Sulfate (MORPHINE SULFATE) 30 Mg Tablet, 1 TAB PO TID, #90 TAB 12/14/16 Discontinued Scripts Hydrocodone/Apap 5-325 (NORCO 5-325 TABLET) 1 Each Tablet, 1-2 EACH PO PRN Q6HRS PRN for severe pain, #15 as needed for pain Prov:FRANK BENITES DO 09/03/18 Clindamycin Hcl (CLINDAMYCIN HCL) 300 Mg Capsule, 1 CAP PO TID, #30 CAP Prov:LEONID MCCRATY MD 02/16/18 Levofloxacin (LEVAQUIN) 500 Mg Tablet, 1 TAB PO DAILY, #7 TAB Prov:DAMIR PATEL APRN 01/07/17 [Vancomycin Hcl] 250 MG/5 ML SOLUTION No Conflict Check, 250 MG PO QID for 10 Days, ML Prov:PASTOR MACK MD 12/18/16 Lorazepam (ATIVAN) 0.5 Mg Tablet, 0.5 MG PO BID, #10 TAB Prov:TRIXIE JANE 12/03/16 Hydrocodone/Apap 5-325 (NORCO 5-325 TABLET) 1 Each Tablet, 1 TAB PO PRN Q6HRS PRN for PAIN, #10 TAB Prov:TRIXIE JANE 12/03/16 Hydrocodone Bit/Acetaminophen (HYDROCODONE-APAP 10-325 ) 1 Each Tablet, 1 TAB PO PRN Q6HRS PRN for PAIN MILD TO MOD, #20 TAB Prov:APRYL BLANC MD 10/13/16 VANI ALONSO MD Dec 24, 2019 11:14
--- NOTE | 2019-12-24 12:00 | NUR ---
GERALDO following. Discussed with RN, discharge order for home with home health. Cassie [facility] has accepted pt. Pt having a 6 minute walk prior to discharge to determine if needing home oxygen. SW will continue to follow. Addendum: 12/24/19 at 1610 by JULIANN CHOW Pt refused to do 6 minute walk. Cassie met with pt again, pt does not have a primary care physician and doesn't plan on getting one. Pt cannot have home health without a PCP. Cassie HUERTA, Jody mentioned [facility] to pt, which pt did not appear to be happy about and declined. Dr. Hill met with pt and advised [facility] is pt's only option if she wants to go somewhere or home alone. Pt stating she cannot go home and is now agreeable to alf care. GERALDO met with pt, pt did not have preference as to where referral was sent, just wants to go to a facility. GERALDO faxed referral to [facility] (ph: [phone], fax: [phone]) and [facility] who takes referrals for [facility] (ph: [phone], fax: [phone]). SW awaiting acceptance decision, medicaid will need to be verified, to determine if there is a alf care benefit, otherwise pt will have to go medicaid pending. GERALDO will continue to follow. Facilities notified if decision is after 1630 to contact pt's Cynthia HUERTA. Addendum: 12/24/19 at 1633 by JULIANN GERBER [facility] has declined to take pt. [facility] is looking at referral, and the business office is checking benefits. RN notified.
[2019-12-24] MEDS: hydrOXYzine 25 MG TABLET PO PRN (12:09)
--- NOTE | 2019-12-24 14:34 | PDOC3 ---
Discharge Summary Visit Information Date of Admission: Dec 18, 2019 Date of Discharge: Dec 24, 2019 Admitting Diagnosis: HCAP Final Diagnosis Problems Medical Problems: (1) Pneumonia Status: Acute Brief Hospital Course Allergies Allergies Coded Allergies Type Severity Reaction Last Updated Verified aspirin Allergy Intermediate 10/10/16 Yes Vital Signs Vital Signs Date Time Temp Pulse Resp B/P (MAP) Pulse Ox O2 Delivery O2 Flow Rate FiO2 12/24/19 11:00 98.1 78 18 155/53 (87) 93 Nasal Cannula 2.0 98.1 Brief Hospital Course Ms Amor is a 59 yo F w/ PMHx HTN, anxiety, psychosis NOS, COPD (undiagnosed), tobacco dependence that has been sick now for well over 2 weeks. She presented at [facility], was diagnosed with flu and discharged home with supportive care. She presented she has a cough, mostly productive of discolored sputum. She does not think she has underlying COPD. She has been sick to her stomach. No chest pain or pressure. No hemoptysis. She is not up-to-date on her flu and pneumonia vaccinations. She had a chest x-ray, which revealed a left infrahilar infiltrate. The patient denies nausea, vomiting, or diarrhea. 2/3: NO acute issues overnight. She is continually requesting IV pain medications and "everything" to be IV. She is sleeping, easily awakened. Ate 100% of her breakfast tray. Tells me her hands are burning. 2/4: Tearful today, c/o bilateral hand burning, asking me to cure it. Begging not to be discharged home. Per her family this frequently happens. Seen in bed today, was nude on commode prior to my arrival, ambulated back to bed without assistance. Tells me she cannot go home as her bathtub is "full of junk" and her toilet does not flush well. She had refused to work with physical and occupational therapy and has been refusing breathing treatments. I have informed her she is on PO medications and as she is refusing treatments in the hospital her treatment would be better completed at home. Have d/w her sister and [id number] who have informed staff that the patient is "playing us for medications". I have recommended home health and f/u which was arranged by [facility] after her last discharge. Problem list: HCAP,. gram pos gram neg - 5 days empiric vancomycin and zosyn, transitioned to Augmentin PO GENERALIZED WEAKNESS Malrnourished, cachexia - BMI 17 SEPSIS, POA no organ dysfcn Elevated lactate 2,5 - on admit, resolved COPD hx, smoker - stills smokes few cigars HTN, controlled Psychosis on olanzapine etc Discharge Recommendations - home with home health Plan: Change zosyn to augmentin PT OT Placement may eventually be necessary. As she refuses to work with therapy I have advised her she will be discharged home, offered home health 6 minute walk - no O2 requirements Discharge Information Condition at Discharge: Improved Follow Up: Weeks Disposition/Orders: D/C to Home w/ HH Scheduled Amoxicillin/Potassium Clav (Amox Tr-K Clv 875-125 Mg Tab) 1 Each Tablet, 1 TAB PO BID for Pneumonia for 7 Days, #14 Prescribed by: VANI ALONSO MD on 12/24/19 1110 Clotrimazole (Clotrimazole) 15 Gm Cream..g., 1 JOE TP TID, #45 Prescribed by: FRANK BENITES D.O. on 09/03/18 0000 Last Action: Continued on 12/18/19 1308 by PALLAVI BOND Gabapentin (Gabapentin ) 100 Mg Capsule, 100 MG PO TID for neuropathy for 30 Days, #90 Prescribed by: VANI ALONSO MD on 12/24/19 1110 Levothyroxine Sodium (Levothyroxine Sodium) 112 Mcg Tablet, 112 MCG PO DAILY07, #30 Prescribed by: APRYL BLANC MD on 10/13/16 1125 Last Action: Continued on 12/18/19 1308 by PALLAVI BOND Quetiapine Fumarate (Quetiapine Fumarate) 25 Mg Tablet, 25 MG PO QHS, #30 Prescribed by: APRYL BLANC MD on 10/13/16 1125 Last Action: Continued on 12/18/19 1308 by PALLAVI BOND Scheduled PRN Acetaminophen With Codeine (Acetaminophen-Cod #3 Tablet) 1 Each Tablet, 1 TAB PO PRN Q6HRS PRN for MODERATE PAIN for 6 Days, #12 Prescribed by: VANI ALONSO MD on 12/24/19 1110 Hydroxyzine Hcl (Hydroxyzine Hcl) 25 Mg Tablet, 1 TAB PO PRN BID PRN for ANXIETY / AGITATION for 10 Days, #20 Prescribed by: VANI ALONSO MD on 12/24/19 1110 Ondansetron (Zofran Odt) 4 Mg Tab.rapdis, 1 TAB SL PRN Q8HRS PRN for NAUSEA, #3 Prescribed by: JOCELYN SCOTT on 12/28/162130 Last Action: Continued on 12/18/19 1308 by PALLAVI BOND Ondansetron Hcl (Zofran) 4 Mg Tablet, 1 TAB PO Q8HRS PRN for NAUSEA, #15 Prescribed by: JULES BANEGAS MD on 11/29/162038 Last Action: Converted on 12/18/19 1308 by PALLAVI BOND Discontinued Medications Clindamycin Hcl (Clindamycin Hcl) 300 Mg Capsule, 1 CAP PO TID, #30 Prescribed by: LEONID MCCARTY MD on 02/16/18 0313 Last Action: HELD on 12/18/19 1308 by PALLAVI BOND Hydrocodone Bit/Acetaminophen (Hydrocodone-Apap 10-325 ) 1 Each Tablet, 1 TAB PO PRN Q6HRS PRN for PAIN MILD TO MOD, #20 Prescribed by: APRYL BLANC MD on 10/13/16 1133 Last Action: HELD on 12/18/19 1308 by PALLAVI BOND Hydrocodone/Apap 5-325 ([place] 5-325 Tablet) 1 Each Tablet, 1 TAB PO PRN Q6HRS PRN for PAIN, #10 Prescribed by: TRIXIE JANE on 12/03/162151 Last Action: Continued on 12/18/19 1308 by PALLAVI BOND Hydrocodone/Apap 5-325 ([place] 5-325 Tablet) 1 Each Tablet, 1-2 EACH PO PRN Q6HRS PRN for severe pain, #15 as needed for pain Prescribed by: FRANK BENITES D.O. on 09/03/18 2358 Last Action: HELD on 12/18/19 1308 by PALLAVI BOND Levofloxacin (Levaquin) 500 Mg Tablet, 1 TAB PO DAILY, #7 Prescribed by: DAMIR PATEL APRN on 01/07/17 1539 Last Action: HELD on 12/18/19 1308 by PALLAVI BOND Lorazepam (Ativan) 0.5 Mg Tablet, 0.5 MG PO BID, #10 Prescribed by: TRIXIE JANE on 12/03/162151 Last Action: Continued on 12/18/19 1308 by PALLAVI BOND Morphine Sulfate (Morphine Sulfate) 30 Mg Tablet, 1 TAB PO TID, #90 (Reported) Entered as Reported by: CHELO MARSHALL on 12/14/16 0127 Last Action: HELD on 12/18/19 1308 by PALLAVI BOND [Vancomycin Hcl] 250 MG/5 ML SOLUTION, 250 MG PO QID for 10 Days Prescribed by: PASTOR MACK MD on 12/18/16 1105 Last Action: HELD on 12/18/19 130 by VANI TOLBERT MD Dec 24, 2019 14:34
[2019-12-24 15:00] VITALS: BP 112/73
--- NOTE | 2019-12-24 15:49 | SNU/HH DC ---
DISCHARGE ORDERS DISCHARGE INFORMATION: DISCHARGE DATE: Dec 24, 2019 FINAL DIAGNOSIS Problems Medical Problems: (1) Pneumonia Status: Acute CONDITION ON DISCHARGE: Stable CODE STATUS: Code Status: Full POST DISCHARGE ORDERS: ACTIVITY ORDERS: No restrictions WEIGHT BEARING STATUS: No restrictions DIET AFTER DISCHARGE: Regular WOUND/INCISION CARE: No wound care needed CHECKS AFTER DISCHARGE: CHECKS AFTER DISCHARGE: Check blood press - daily TREATMENT/EQUIPMENT ORDERS: ADAPTIVE EQUIPMENT NEEDED: None RESPIRATORY EQUIPMENT NEEDED: Nebulizer, MDI DISCHARGE MEDICATIONS: Home Meds Active Scripts Amoxicillin/Potassium Clav (AMOX TR-K CLV 875-125 MG TAB) 1 Each Tablet, 1 TAB PO BID for Pneumonia for 7 Days, #14 TAB Prov:VANI ALONSO MD 12/24/19 Gabapentin (GABAPENTIN ) 100 Mg Capsule, 100 MG PO TID for neuropathy for 30 Days, #90 CAP Prov:VANI ALONSO MD 12/24/19 Acetaminophen With Codeine (ACETAMINOPHEN-COD #3 TABLET) 1 Each Tablet, 1 TAB PO PRN Q6HRS PRN for MODERATE PAIN for 6 Days, #12 TAB Prov:VANI ALONSO MD 12/24/19 Hydroxyzine Hcl (HYDROXYZINE HCL) 25 Mg Tablet, 1 TAB PO PRN BID PRN for ANXIETY / AGITATION for 10 Days, #20 TAB Prov:VANI ALONSO MD 12/24/19 Clotrimazole (CLOTRIMAZOLE) 15 Gm Cream..g., 1 JOE TP TID, #45 GM Prov:FRANK BENITES DO 09/04/18 Ondansetron (ZOFRAN ODT) 4 Mg Tab.rapdis, 1 TAB SL PRN Q8HRS PRN for NAUSEA, #3 TAB Prov:JOCELYN SCOTT MD 12/28/16 Ondansetron Hcl (ZOFRAN) 4 Mg Tablet, 1 TAB PO Q8HRS PRN for NAUSEA, #15 TAB Prov:JULES BANEGAS MD 11/29/16 Quetiapine Fumarate (QUETIAPINE FUMARATE) 25 Mg Tablet, 25 MG PO QHS, #30 TAB- CAP Prov:APRYL BLANC MD 10/13/16 Levothyroxine Sodium (LEVOTHYROXINE SODIUM) 112 Mcg Tablet, 112 MCG PO DAILY07, #30 TAB-CAP Prov:PARYL BLANC MD 10/13/16 Discontinued Reported Medications Morphine Sulfate (MORPHINE SULFATE) 30 Mg Tablet, 1 TAB PO TID, #90 TAB 12/14/16 Discontinued Scripts Hydrocodone/Apap 5-325 (NORCO 5-325 TABLET) 1 Each Tablet, 1-2 EACH PO PRN Q6HRS PRN for severe pain, #15 as needed for pain Prov:FRANK BENITES DO 09/03/18 Clindamycin Hcl (CLINDAMYCIN HCL) 300 Mg Capsule, 1 CAP PO TID, #30 CAP Prov:LEONID MCCARTY MD 02/16/18 Levofloxacin (LEVAQUIN) 500 Mg Tablet, 1 TAB PO DAILY, #7 TAB Prov:DAMIR PATEL DYNAMITE PACKING MACHINE OPERATOR 01/07/17 [Vancomycin Hcl] 250 MG/5 ML SOLUTION No Conflict Check, 250 MG PO QID for 10 Days, ML Prov:PASTOR MACK MD 12/18/16 Lorazepam (ATIVAN) 0.5 Mg Tablet, 0.5 MG PO BID, #10 TAB Prov:TRIXIE JANE 12/03/16 Hydrocodone/Apap 5-325 (NORCO 5-325 TABLET) 1 Each Tablet, 1 TAB PO PRN Q6HRS PRN for PAIN, #10 TAB Prov:TRIXIE JANE 12/03/16 Hydrocodone Bit/Acetaminophen (HYDROCODONE-APAP 10-325 ) 1 Each Tablet, 1 TAB PO PRN Q6HRS PRN for PAIN MILD TO MOD, #20 TAB Prov:APRYL BLANC MD 10/13/16 VANI ALONSO MD Dec 24, 2019 15:49
--- NOTE | 2019-12-24 17:36 | NUR ---
states Secretary denied. per Henok at [facility], severity of illness coordinator indicated that pt is not appropriate for skilled. Spoke with Little Leon at [facility] and they will not know until tomorrow about acceptance. situation was explained to Little that if pt is not accepted this evening, she will go home on . Little stated that if pt follows up w/ PCP within next 30 days and is appropriate for skilled, PCP can make orders for placement. explained to pt that she is going home and pt very upset. pt has called family and told them that she is not "mentally stable to stay here" and that the physician told her she could stay "a few days for mental help and medication". explained to family that we are not a [facility] facility. family v/u. family is currently at pt's home waiting for her to be discharged. this was explained to pt again and she continues to be upset.
[2019-12-24] MEDS: LORazepam 0.5 MG TABLET PO PRN (17:48)
--- NOTE | 2019-12-24 19:08 | NUR ---
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 when staff went into room to get pt into w/c, pt was on commode. informed pt that her ride was here and we needed to get her into w/c. pt became more agitated and tearful stating she was starving and hadn't eaten all day, asked if she could eat her dinner tray. reminded pt that she had already eaten 4 trays of food today and that her dinner tray had been sitting there for 90 minutes, questioned why she hadn't eaten it and she stated she had "been too busy on the phone". offered pt a sandwich meal to go and pt refused. pt wanted to get cleaned up before getting into w/c. again reminded pt her ride was here. pt became even more anxious, yelling about how she did not want to go home and refused to get into w/c. staff informed her security would be called if she refused to be discharged. staff attempted to assist pt out of chair and pt jerked her arm away. questioned if she was trying to hit staff and she replied "no i just don't want you touching me". after approx 10 minutes of coaxing pt into w/c she reluctantly agreed. RN wheeled pt to desk for transport to take her home and transport had left. RN called family to see if they could pick her up and they agreed but indicated it would be approx 1930. pt taken back to room so she could eat her dinner.
== END 2019-12-24 20:42 | disposition home or self-care (01) | DRG 871 ==
LOC: ER 08:32 → 6 SOUTH 10:20 → 5 SOUTH 12-19 16:22
PROVIDERS: ADMIT Internal Medicine; ATTEND Internal Medicine
DX: A41.9 Sepsis, unspecified organism (principal); J15.6 Pneumonia due to other Gram-negative bacteria; J15.9 Unspecified bacterial pneumonia; J44.0 Chronic obstructive pulmonary disease with (acute) lower respiratory infection; J44.1 Chronic obstructive pulmonary disease with (acute) exacerbation; J98.11 Atelectasis; R64 Cachexia; E46 Unspecified protein-calorie malnutrition; Z68.1 Body mass index [BMI] 19.9 or less, adult; F17.210 Nicotine dependence, cigarettes, uncomplicated; F29 Unspecified psychosis not due to a substance or known physiological condition; F41.9 Anxiety disorder, unspecified; I10 Essential (primary) hypertension; K44.9 Diaphragmatic hernia without obstruction or gangrene; M41.9 Scoliosis, unspecified; Y95 Nosocomial condition; Z85.828 Personal history of other malignant neoplasm of skin; Z90.710 Acquired absence of both cervix and uterus; Z88.6 Allergy status to analgesic agent; Z79.899 Other long term (current) drug therapy
CPT/HCPCS: 36415; 71046; 80048; 80053; 80202; 82565; 83605; 83880; 84484; 85025; 85651; 87040; 87493; 87804; 93005; 94640; 94760; 96361; 96365; 96375; J0696; J2060; J2405; J2543; J3010; J3370; J3490; J7030; J7050; J7512; J7613; J7620; Q0162; 97530; 97535; 99285-25; G0378